=== PATIENT | male | born 1940 | race Caucasian/White ===

== ENCOUNTER → 2018-07-09 15:33 | Outpatient (CLI) | payer MEDICARE, SELFPAY ==
--- NOTE | 2018-07-09 15:44 | XR_ITS ---
XR chest 2V HISTORY: ITS.REASON: COUGH,WHEEZING ORDERING PHYSICIAN: Higinio Limon PATIENT AGE: 77 years COMPARISON: 12/29/2016 FINDINGS: The cardiomediastinal silhouette and pulmonary vascularity are within normal limits. There are mild atelectatic changes at left lung base. There is some increased density in the right infrahilar region with bronchial thickening suspicious for an area of patchy infiltrate.. There is increased density in the retrocardiac region on the left consistent with hiatal hernia.. No acute bony abnormalities. IMPRESSION: 1. Patchy infiltrate in the right lung base medially 2. Atelectasis/fibrosis in the left lung base
== END ==
PROVIDERS: PCP Internal Medicine; Visit Provider Internal Medicine
DX: R05 Cough (principal); R06.2 Wheezing
CPT/HCPCS: 71046

== ENCOUNTER → 2018-08-20 10:27 | Outpatient (CLI) | payer MEDICARE, SELFPAY ==
--- NOTE | 2018-08-20 10:33 | XR_ITS ---
XR chest 2V HISTORY: Follow-up pneumonia. COMPARISON is made to 07/09/2018 ITS.REASON: S/P PNEUMONIA ORDERING PHYSICIAN: Higinio Limon PATIENT AGE: 77 years FINDINGS: The cardiomediastinal silhouette and pulmonary vascularity are within normal limits. There is increased density in the retrocardiac region to the left of the spine suggesting hiatal hernia. This may be confirmed with CT. The patchy density in the right lung base has shown some improvement. There does remain increased density in the right lung base medially which may be due to vascular overlap. The remaining lungs are clear. IMPRESSION: Improved right lower lobe infiltrate. There is some residual density in the right lung base medially probably due to vascular overlap and may be confirmed with follow-up Hiatal hernia.
== END ==
PROVIDERS: PCP Internal Medicine; Visit Provider Internal Medicine
DX: J18.9 Pneumonia, unspecified organism (principal)
CPT/HCPCS: 71046

== ENCOUNTER 2019-03-11 11:00 | Outpatient (RCR) | payer MEDICARE, SELFPAY | END 2019-03-11 11:05 | disposition home or self-care (01) | LOC: PT 11:00 | PROVIDERS: Visit Provider Orthopaedic Surgery | DX: M71.552 Other bursitis, not elsewhere classified, left hip (principal) | CPT/HCPCS: 97033; 97110; 97112; 97163 ==

== ENCOUNTER → 2019-11-01 10:35 | Outpatient (CLI) | payer MEDICARE, SELFPAY ==
[2019-11-01 12:06] LABS: Hemoglobin A1C 7.9 % (0.0-7.0)
[2019-11-01 13:22] LABS: Alanine Aminotransferase 24 U/L (12-78); Albumin Level 3.1 gm/dL (3.4-5.0); Albumin/Globulin Ratio 0.9 (1.1-1.8); Alkaline Phosphatase 68 U/L (46-116); Anion Gap 13.8 mEq/L (5-15); Aspartate Amino Transferase 11 U/L (15-37); Bilirubin,Total 0.7 mg/dL (0.2-1.0); Blood Urea Nitrogen 12 mg/dL (7-18); Calcium 8.9 mg/dL (8.5-10.1); Carbon Dioxide 27 mmol/L (21.0-32.0); Chloride 105 mmol/L (98-107); Chol/HDL Ratio 2.9 (1-3.5); Cholesterol 123 mg/dL (140-200); Creatinine,Serum 1.12 mg/dL (0.70-1.30); Estimated Glomerular Filt Rate 63 ml/min (>60); GFR (African American) 77 ML/MIN (>60); Globulin 3.3 gm/dl (1.3-3.2); Glucose 146 mg/dL (74-106); HDL Cholesterol 43 mg/dL (27-67); LDL Cholesterol 66 mg/dL (0-130); Potassium 4.8 mmoL/L (3.5-5.1); Sodium 141 mmol/L (136-145); Total Protein,Serum 6.4 gm/dL (6.4-8.2); Triglycerides 70 mg/dL (30-200); VLDL Cholesterol 14 mg/dL (0-40)
== END ==
PROVIDERS: Visit Provider Internal Medicine
DX: I10 Essential (primary) hypertension (principal); E78.5 Hyperlipidemia, unspecified; E11.9 Type 2 diabetes mellitus without complications
CPT/HCPCS: 36415; 80053; 80061; 83036

== ENCOUNTER 2021-03-28 18:58 | Observation (INO) | payer MEDICARE, SELFPAY ==
--- NOTE | 2021-03-28 19:08 | CT_ITS ---
PROCEDURE INFORMATION: Exam: CT Abdomen And Pelvis With Contrast Exam date and time: 03/28/21 07:08 PM Age: 80 years old Clinical indication: Nausea and vomiting; Abdominal pain; Generalized; Patient HX: Abdominal and back pain with nausea since this morning. TECHNIQUE: Imaging protocol: Computed tomography of the abdomen and pelvis with contrast. Radiation optimization: All CT scans at this facility use at least one of these dose optimization techniques: automated exposure control; mA and/or kV adjustment per patient size (includes targeted exams where dose is matched to clinical indication); or iterative reconstruction. Contrast material: ISOVUE; Contrast volume: 75 ml; Contrast route: IV; COMPARISON: No relevant prior studies available. FINDINGS: Tubes, catheters and devices: None noted. Lungs: Lung bases appear clear. Heart: Moderate coronary calcifications. No cardiomegaly. No significant pericardial effusion. Liver: Right lobe subcapsular hematoma versus abscess. No mass. Gallbladder and bile ducts: Hydropic gallbladder. Pericholecystic inflammation. Direct extension from the gallbladder into a complex subhepatic fluid collection, gangrenous gallbladder with perforation versus hematoma. No ductal dilation. Pancreas: Normal. No ductal dilation. Spleen: Normal. No splenomegaly. Adrenal glands: Normal. No mass. Kidneys and ureters: Normal. No hydronephrosis. Stomach and bowel: Colonic diverticulosis without diverticulitis. No obstruction. No mucosal thickening. Appendix: No evidence of appendicitis. Intraperitoneal space: Unremarkable. No free air. No significant fluid collection. Retroperitoneal space: No significant retroperitoneal inflammatory changes are noted. Vasculature: Unremarkable. No abdominal aortic aneurysm. Lymph nodes: Unremarkable. No enlarged lymph nodes. Urinary bladder: Unremarkable as visualized. Reproductive: Unremarkable as visualized. Bones/joints: Bilateral total hip arthroplasty. No acute fracture. Soft tissues: Unremarkable. IMPRESSION: Abnormal appearing gallbladder, distended with high dense bile. Pericholecystic inflammation, and direct extension into a large right subhepatic fluid collection which is heterogeneous. Suspect subhepatic abscess versus infected hematoma.
[2021-03-28 19:17] VITALS: BP 138/99; PULSE 99; RESP 16; TEMP 36.6; O2SAT 94; BMI 30.8
[2021-03-28 19:24] LABS: Basophils % 0.1 % (0.1-2.0); Eosinophils % 0.1 % (0.1-12.0); Hematocrit 41.6 % (42.0-52.0); Hemoglobin 13.8 g/dL (14.1-18.0); Lymphocytes # 0.7 K/mm3 (0.7-4.5); Lymphocytes % 3.2 % (10-50); Mean Corpuscular HGB Conc 33.1 g/dL (31.8-35.4); Mean Corpuscular Hemoglobin 29.1 pg (27.0-31.2); Mean Corpuscular Volume 87.8 fl (80-94); Mean Platelet Volume 8.5 fl (7.4-10.4); Monocytes # 1.1 K/mm3 (0.1-1.0); Monocytes % 5.5 % (1.7-9.3); Neutrophils # 18.5 K/mm3 (1.8-7.8); Neutrophils % 91.1 % (37.0-80.0); Platelet Count 291 K/mm3 (142-424); Red Blood Count 4.73 M/mm3 (4.60-6.20); Red Cell Distribution Width 14.2 % (11.5-17.5); White Blood Count 20.3 K/mm3 (4.8-10.8)
[2021-03-28 19:26] LABS: Chloride 99 mmol/L (98-107)
[2021-03-28 19:27] LABS: MANUAL DIFFERENTIAL MANUAL DIFFERENTIAL (MANUAL DIFF); Potassium 4.4 mmoL/L (3.5-5.1); Sodium 137 mmol/L (136-145)
[2021-03-28 19:29] LABS: Alanine Aminotransferase 60 U/L (12-78); Alkaline Phosphatase 106 U/L (38-126); Anion Gap 19.4 mEq/L (5-15); Aspartate Amino Transferase 64 U/L (17-59); Bilirubin,Total 2.7 mg/dl (0.2-1.3); Blood Urea Nitrogen 13 mg/dl (9-20); Carbon Dioxide 23 mmol/L (22.0-30.0); Estimated Glomerular Filt Rate 45 ml/min (>60); GFR (African American) 54 ML/MIN (>60)
[2021-03-28 19:30] LABS: Albumin Level 5.1 g/dl (3.5-5.0); Albumin/Globulin Ratio 1.4 (1.1-1.8); Calcium 9.5 mg/dl (8.4-10.2); Globulin 3.6 g/dL (1.3-3.2); Glucose 299 mg/dl (74-100); Lipase 117 U/L (23-300); Magnesium 2.2 mg/dl (1.6-2.3); Total Protein,Serum 8.7 g/dl (6.3-8.2)
--- NOTE | 2021-03-28 19:30 | HMH.EDGENADL ---
ED Disposition Condition on Discharge: Good - Critical Care Critical Care Time: No <Lucho Pacheco - Last Filed: 03/28/21 19:58> <Raffaele Phillips - Last Filed: 03/28/21 22:14> Clinical Impression: Weakness, Perforated gallbladder, Severe sepsis with acute organ dysfunction Disposition: Admitted As Inpatient Attestation: On 03/28/21, the high probability of a clinically significant, sudden or life threatening deterioration of the following system(s) required my full and direct attention, intervention and personal management. The time I documented below is in addition to time spent performing reported procedures but includes the following listed in this critical care notation. Medical Decision Making - Medical Records Medical records reviewed: Yes: I reviewed the patient's medical records. - [place] Inquiry Pt receiving controlled substance: No - Lab Data Result diagrams: 03/28/21 19:14 03/28/21 19:14 <Lucho Pacheco - Last Filed: 03/28/21 19:58> - Lab Data Lab results reviewed: Yes: I reviewed the patient's lab results. Result diagrams: 03/28/21 19:14 03/28/21 19:14 - Radiology Data #1 Image(s): Chest Image Reviewed: Yes I reviewed the patient's radiology image Preliminary Findings: Normal/NAD - CT Data CT Scan: Abdomen, Pelvis Time Received: 22:[address] Reviewed: Yes: I have viewed the radiologist's interpretation Preliminary Findings: Abnormal (see report ) - ECG Data Tracing #1 Normal Sinus Rhythm: Yes Ischemic changes: non-specific ST-T wave changes - Physician Consults Physician Consulted: audi Reason -: Pt condition Additional Consult: kaitlin Reason -: Admission <Raffaele Phillips - Last Filed: 03/28/21 22:14> Vital Signs: 03/28/21 19:17 Temperature 97.8 F Temperature Source Oral Pulse Rate [Right] 99 H Respiratory Rate 16 Blood Pressure [Right Arm] 138/99 H Blood Pressure Mean [Right Arm] 112 Blood Pressure Source [Right Arm] Automatic Cuff Blood Pressure Position [Right Arm] Supine 02 Sat by Pulse Oximetry 94 L Oxygen Delivery Method Room Air - Lab Data Lab Results 03/28/21 19:14: WBC 20.3 H*, RBC 4.73, Hgb 13.8 L, Hct 41.6 L, MCV 87.8, MCH 29.1, MCHC 33.1, RDW 14.2, Plt Count 291, MPV 8.5, Neut % (Auto) 91.1 H, Lymph % (Auto) 3.2 L, [place] % (Auto) 5.5, Eos % (Auto) 0.1, Baso % (Auto) 0.1, Neut # (Auto) 18.5 H, Lymph # (Auto) 0.7, [place] # (Auto) 1.1 H, Eos # (Auto) 0.0, Baso # (Auto) 0.0, Total Counted 100, Neutrophils % (Manual) 90 H, Lymphocytes % (Manual) 4 L, Monocytes % (Manual) 6, Platelet Estimate Normal, RBC Morphology Normal 03/28/21 19:14: Sodium 137, Potassium 4.4, Chloride 99, Carbon Dioxide 23, Anion Gap 19.4 H, BUN 13, Creatinine 1.50 H, Estimated GFR 45 L, Est GFR ( Amer) 54 L, Glucose 299 H, Calcium 9.5, Total Bilirubin 2.7 H, AST 64 H, ALT 60, Alkaline Phosphatase 106, Total Protein 8.7 H, Albumin 5.1 H, Globulin 3.6 H, Albumin/Globulin Ratio 1.4 03/28/21 19:14: Magnesium 2.2, Lipase 117 03/28/21 19:15: ESR 32 H 03/28/21 19:15: C-Reactive Protein 62.3 H, Procalcitonin 0.379 03/28/21 21:00: Lactate 2.3 H 03/28/21 21:20: Urine Color Yellow, Urine Appearance Clear, Urine pH 7.0, Ur Specific [place] 1.010, Urine Protein 2+, Urine Glucose (UA) 3+, Urine Ketones Negative, Urine Blood 2+, Urine Nitrate Negative, Urine Bilirubin Negative, Urine Urobilinogen 1.0, Ur Leukocyte Esterase Negative, Urine RBC 3-5, Urine WBC None, Ur Squamous Epith Cells 3-5, Urine Bacteria Trace Orders (Tests/Meds): ED MEDICATIONS Generic Name Dose Route Start Last Admin Trade Name Freq PRN Reason Stop Dose Admin Sodium Chloride 1,000 mls @ 999 mls/hr 03/28/21 20:00 03/28/21 20:45 Sod Chlor 0.9% 1000ml Bag IV 03/28/21 21:00 999 mls/hr .Q1H1M PADILLA Administration Piperacillin Sod/Tazobactam 50 mls @ 100 mls/hr 03/28/21 22:00 03/28/21 21:56 Sod 3.375 gm/ Sodium Chloride IV 04/11/21 21:59 100 mls/hr Q6H PADILLA Administration Protocol Di
[2021-03-28 19:40] LABS: Lymphocytes % 4 % (10-50); Monocytes % 6 % (2-9); Neutrophils % 90 % (42-76); Platelet Estimate Normal; RBC Morphology Normal; Total Cells Counted 100
--- NOTE | 2021-03-28 20:37 | PC.NURSE ---
in the room talking to patient
--- NOTE | 2021-03-28 20:46 | XR_ITS ---
PROCEDURE INFORMATION: Exam: XR Chest Exam date and time: 03/28/21 08:46 PM Age: 80 years old Clinical indication: Shortness of breath; Patient HX: SOB TECHNIQUE: Imaging protocol: XR of the chest. Views: 1 view. COMPARISON: CR CXR2V XR chest 2V 08/20/18 10:35 AM FINDINGS: Lungs: Low volume chest. No consolidation. Pleural spaces: Unremarkable. No pleural effusion. No pneumothorax. Heart/Mediastinum: Hiatal hernia. No cardiomegaly. Bones/joints: Unremarkable. IMPRESSION: 1. Hiatal hernia. 2. No acute findings.
--- NOTE | 2021-03-28 20:49 | ECG_ITS ---
APPROVED REPORT Exam: Resting ECG HR:82 bpm ECG Measurements Heart Rate 82 AXES IL 152 P 19 QRSd 74 QRS -10 QT 442 T -6 QTc 516 Conclusion Sinus rhythm with marked sinus arrhythmia with occasional premature ventricular complexes and fusion complexes Moderate voltage criteria for LVH, may be normal variant Nonspecific T wave abnormality Prolonged QT Abnormal ECG Electronically signed by : Faustino Lee, 03/30/2021 10:53:51
[2021-03-28 21:00] VITALS: BP 169/80; PULSE 82; O2SAT 92
[2021-03-28 21:04] LABS: C-Reactive Protein 62.3 mg/L (0-4)
[2021-03-28 21:17] LABS: Erythrocyte Sedimentation Rate 32 mm/hr (0-20); Procalcitonin 0.379 ng/mL (0.0-2.0)
[2021-03-28 21:27] LABS: Lactic Acid 2.3 mmol/L (0.7-2.1)
[2021-03-28 21:27] LABS: Microscopic, Urine URINE MICROSCOPIC (MICROSCOPIC)
[2021-03-28 21:30] VITALS: BP 157/89
--- NOTE | 2021-03-28 21:30 | PC.NURSE ---
gps navigation installer surgeon paged for Dr. Phillips
[2021-03-28 21:31] LABS: Appearance,Urine CLEAR (Clear); Bilirubin,Urine Negative (Negative); Blood, Urine 2+ (Negative); Color,Urine YELLOW (Yellow); Glucose,Urine (UA) 3+ (Negative); Ketones,Urine Negative (Negative); Leukocyte Esterase,Urine Negative (Negative); Nitrate,Urine Negative (Negative); Protein,Urine 2+ (Negative)
--- NOTE | 2021-03-28 21:33 | PC.NURSE ---
Dr. Phillips on phone with all call surgeon
--- NOTE | 2021-03-28 21:41 | PC.NURSE ---
Dr. Pang paged for Dr. Phillips
--- NOTE | 2021-03-28 21:42 | PC.NURSE ---
Dr. Phillips on phone with Dr. Preciaod
[2021-03-28 21:43] LABS: Bacteria,Urine Trace /lpf
[2021-03-28 22:00] VITALS: BP 165/82
[2021-03-28 23:30] VITALS: BP 159/81; PULSE 79; O2SAT 94
[2021-03-29] VITALS (28 sets, daily range): BP systolic 140–190; BP diastolic 62–97; PULSE 74–111; RESP 14–20; TEMP 36.6–43; O2SAT 91–98; BMI 29.0
--- NOTE | 2021-03-29 00:07 | PC.NURSE ---
Report called to ANDREA Gibson at this time.
--- NOTE | 2021-03-29 00:26 | PC.NURSE ---
Addendum entered by Soni Bucio CNA 03/29/21 01:47: CORRECTION. TIME OF ARRIVAL TO FLOOR WAS 0025 Original Note: PT ARRIVED TO FLOOR VIA STRETCHER FROM ED W/STAFF AT 1225
[2021-03-29 01:09] LABS: Reflex Lactic Add Lactic Reflex
[2021-03-29 01:41] LABS: Lactic Acid Follow Up (RFLX 1) 1.6 mmol/L (0.7-2.1)
[2021-03-29 05:54] LABS: POC Glucose,Bedside 152 (70-110)
--- NOTE | 2021-03-29 06:28 | PC.NURSE ---
No acute changes noted since arrival to floor. Pt has not c/o any discomfort. has slept at intervals. VSS. Pt remains on RA. BS active at this time. remains at bedside. Pt and are poor historians on pt's medication. states she will go downstairs this morning and get medications out of car for pharmacy review. No other concerns at this time. Pt is NPO and receiving bath at this time. Will continue to monitor.
--- NOTE | 2021-03-29 06:51 | HMH.GSCON ---
*Admission Date: 03/28/21 *Reason for consult:: Cholecystitis *History of present illness: This is an 80-year-old gentleman who presented to the emergency department yesterday evening with increasing discomfort/nausea. Evaluation in the emergency department included a CT scan that showed changes consistent with severe cholecystitis. Please see HPI from emergency department evaluation forwarded below. Forwarded from emergency department evaluation: General Adult HPI - History of Present Illness Onset (ago): day(s) (1) Location: back, abdomen Radiation: non-radiation Severity: mild Quality: dull Consistency: now resolved <Lucho Pacheco - Last Filed: 03/28/21 19:58> - General Source of Information: Patient, Spouse, Medical Record <Raffaele Phillips - Last Filed: 03/28/21 22:14> - General Stated complaint: abd pain,nausea, back pain Time Seen by Provider: 03/28/21 19:10 - History of Present Illness HPI narrative: Presents with generalized weakness. He says yesterday he did have onset of lower back pain in the mid back associated with abdominal pain nonlocalized. He did have one episode of vomiting. No diarrhea no fever no chills. No dysuria. Does have history of urinary tract infection. No headache or neck stiffness. Per he has not been eating or drinking very well. (Lucho Pacheco) Review of Systems - Constitutional Reports anorexia - Eyes Denies change in vision - ENT Denies difficulty swallowing - *Cardiovascular Denies chest pain - *Respiratory Denies cough - *Gastrointestinal Reports abdominal pain, Reports nausea - *Genitourinary Denies blood in urine - *Musculoskeletal Denies deformity - Integumentary/Breasts Denies new lesions - *Neurologic Denies dizziness, Denies headache(s) - Psychiatric Denies anxiety - Endocrine Denies cold intolerance - Hematologic/Lymphatic Denies easy bleeding - Allergic/Immunologic Denies wheezing [facility] History Medical History: Reports:: Diabetes Mellitus Type 2, Hyperlipidemia, Hypertension Denies:: Cancer, MRSA *Have you ever received a pneumonia vaccine?: No *Have you received a flu vaccine this season?: No Laterality Cases: Bilateral: Total Hip Replacement Other Surgeries: Yes: EGD Amputation: No - *Social History Smoking Status: Never smoker Alcohol Intake: never *Occupational Status:: retired *Travel in the last 8 weeks: None Family Hx:: Asthma, Diabetes, Hyperlipidemia, Hypertension, Stroke Meds Home Medications Medication Instructions Recorded Confirmed Type Aspirin [Aspirin 81mg EC Tab] 81 mg PO DAILY 03/28/21 03/28/21 History Atorvastatin Calcium [Lipitor 10mg 10 mg PO HS 03/28/21 03/28/21 History Tab] Metformin HCl [Glucophage 500mg 500 mg PO BID 03/28/21 03/29/21 History Tablet] Multivitamin [Multivitamins] 1 each PO DAILY 03/28/21 03/28/21 History Omeprazole [Omeprazole 20mg 20 mg PO DAILY 03/28/21 03/28/21 History Capsule] dilTIAZem HCL [Cartia Xt] 240 mg PO DAILY 03/28/21 03/28/21 History Allergies Allergy/AdvReac Type Severity Reaction Status Date / Time No Known Drug Allergies Allergy Unknown Verified 03/28/21 21:54 [NO KNOWN DRUG ALLERGIES] Exam Vital signs and Labs for Last 24 Hours: Temp Pulse Resp BP Pulse Ox 98.0 F 80 16 159/89 H 94 L 03/29/21 03:38 03/29/21 03:38 03/29/21 03:38 03/29/21 03:38 03/29/21 03:38 Laboratory Results - last 24 hr 03/28/21 19:14: WBC 20.3 H*, RBC 4.73, Hgb 13.8 L, Hct 41.6 L, MCV 87.8, MCH 29.1, MCHC 33.1, RDW 14.2, Plt Count 291, MPV 8.5, Neut % (Auto) 91.1 H, Lymph % (Auto) 3.2 L, [place] % (Auto) 5.5, Eos % (Auto) 0.1, Baso % (Auto) 0.1, Neut # (Auto) 18.5 H, Lymph # (Auto) 0.7, [place] # (Auto) 1.1 H, Eos # (Auto) 0.0, Baso # (Auto) 0.0, Total Counted 100, Neutrophils % (Manual) 90 H, Lymphocytes % (Manual) 4 L, Monocytes % (Manual) 6, Platelet Estimate Normal, RBC Morphology Normal 03/28/21 19:14: Sodium 137, Potassium 4
--- NOTE | 2021-03-29 07:00 | US_ITS ---
PROCEDURE: US GALLBLADDER CLINICAL INDICATION: abn ct Abdominal pain COMPARISON: CT CT ABDOMEN PELVIS W CON from 03/28/2021 FINDINGS: Pancreas: Pancreas is not well delineated due to overlying bowel gas. Liver: There is an irregular 10 by collection along the right hepatic lobe inferiorly which is heterogeneous in nature corresponding to the CT abnormality.. There is appropriate direction of blood flow within a non dilated portal vein. Right kidney: No hydronephrosis. There is a 2 cm cyst along the lower pole of the right kidney Gallbladder: Gallbladder is filled with sludge. Stones are also present. Gallbladder is somewhat distended at 8.4 cm. Common bile duct is normal at 3 mm. The gallbladder wall is not well demonstrated. No obvious perihepatic fluid. IMPRESSION: 1. Cholelithiasis with sludge filled gallbladder. Gallbladder is wall it is not well demonstrated due to the shadowing stones. 2. Complex collection along the lower aspect of the right hepatic lobe which could represent a hematoma or an abscess. Dictated by: You Montoya MD 03/29/2021 09:40 You Montoya MD in [place] 03/29/2021 09:40
[2021-03-29 07:08] LABS: Basophils % 0.1 % (0.1-2.0); Eosinophils % 0.1 % (0.1-12.0); Lymphocytes # 1.4 K/mm3 (0.7-4.5); Lymphocytes % 8.7 % (10-50); Mean Corpuscular Hemoglobin 28.9 pg (27.0-31.2); Mean Corpuscular Volume 87.5 fl (80-94); Mean Platelet Volume 8.1 fl (7.4-10.4); Monocytes # 1.3 K/mm3 (0.1-1.0); Monocytes % 7.9 % (1.7-9.3); Neutrophils # 13.4 K/mm3 (1.8-7.8); Neutrophils % 83.1 % (37.0-80.0); Platelet Count 205 K/mm3 (142-424); Red Blood Count 4.11 M/mm3 (4.60-6.20); Red Cell Distribution Width 14.4 % (11.5-17.5); White Blood Count 16.1 K/mm3 (4.8-10.8)
[2021-03-29 07:22] LABS: MANUAL DIFFERENTIAL MANUAL DIFFERENTIAL (MANUAL DIFF)
[2021-03-29 07:29] LABS: Chloride 104 mmol/L (98-107); Sodium 138 mmol/L (136-145)
[2021-03-29 07:30] LABS: Potassium 4.1 mmoL/L (3.5-5.1)
[2021-03-29 07:32] LABS: Alanine Aminotransferase 125 U/L (12-78); Albumin/Globulin Ratio 1.3 (1.1-1.8); Alkaline Phosphatase 85 U/L (38-126); Anion Gap 11.1 mEq/L (5-15); Aspartate Amino Transferase 153 U/L (17-59); Bilirubin,Total 2.4 mg/dl (0.2-1.3); Blood Urea Nitrogen 17 mg/dl (9-20); Carbon Dioxide 27 mmol/L (22.0-30.0); Creatinine Clearance Estimated 58 mL/min (50-200); Estimated Glomerular Filt Rate 53 ml/min (>60); GFR (African American) 64 ML/MIN (>60)
[2021-03-29 07:33] LABS: Calcium 8.7 mg/dl (8.4-10.2); Glucose 156 mg/dl (74-100)
--- NOTE | 2021-03-29 07:34 | P.CONPHA_ITS ---
[facility] Pharmacy VTE Monitoring - Patient Demographics Admission date: 03/29/21 Report Date: 03/29/21 Time: 07:34 Allergies/Adverse Reactions: Patient Allergies No Known Drug Allergies [NO KNOWN DRUG ALLERGIES] Allergy (Unknown, Verified 03/28/21 21:54) Height: 1.78 m Weight: 92.079 kg Patient Problems: Current Active Problems Weakness (Acute) Perforated gallbladder (Acute) Severe sepsis with acute organ dysfunction (Acute) Gangrenous cholecystitis (Acute) - VTE Risk Labs: VTE Related Lab Results Hgb 13.8 g/dL (14.1-18.0) L 03/28/21 19:14 Hct 36.0 % (42.0-52.0) L 03/29/21 06:10 Plt Count 205 K/mm3 (142-424) D 03/29/21 06:10 BUN 13 mg/dl (9-20) 03/28/21 19:14 Creatinine 1.50 mg/dl (0.66-1.25) H 03/28/21 19:14 Was VTE Risk Assessment Performed: Yes VTE Score: 2 VTE Risk Level: Very Low Risk Clinical Trial Participant: No - Prophylaxis VTE Prophylaxis Ordered?: Yes Types of VTE Prophylaxis: TEDS Knee High Location of Applied Device: Bilateral Lower Extremeties
--- NOTE | 2021-03-29 09:02 | HMH.HP ---
*Admission Date: 03/29/21 <Annia Penaloza 03/29/21 09:10> *Chief complaint: abdominal pain, back pain <Annia Penaloza 03/29/21 09:10> *History of present illness: Mr. Lawson is an 80-year-old male with a history of hypertension, hyperlipidemia, asthma, and prediabetes who began feeling poorly at the beginning of this week. He has had epigastric and right upper quadrant abdominal pain that has radiated into his back. He has been nauseated and extremely weak. Yesterday he began vomiting and was so weak he could not get up. He was transported to the emergency room and evaluated. A CT scan showed changes consistent with severe cholecystitis with a possible subhepatic abscess versus an infected hematoma. He was admitted and surgery was consulted. He was started on IV antibiotics and Dr. Singer saw the patient. He plans cholecystectomy at 11 AM today. <Annia Penaloza 03/29/21 09:10> [facility] History I have reviewed the patient's past medical history: Yes <Annia Penaloza 03/29/21 09:10> Medical History: Reports:: Asthma, Diabetes Mellitus Type 2, Hyperlipidemia, Hypertension Denies:: Cancer, MRSA <Annia Penaloza 03/29/21 09:10> *Have you ever received a pneumonia vaccine?: No <Annia Penaloza 03/29/21 09:10> *Have you received a flu vaccine this season?: No <Annia Penaloza 03/29/21 09:10> Laterality Cases: Bilateral: Total Hip Replacement <Annia Penaloza 03/29/21 09:10> Other Surgeries: Yes: EGD <Annia Penaloza 03/29/21 09:10> Amputation: No <Annia Penaloza 03/29/21 09:10> - *Social History Smoking Status: Never smoker <Annia Penaloza 03/29/21 09:10> Alcohol Intake: never <Annia Penaloza 03/29/21 09:10> *Occupational Status:: retired <Annia Penaloza 03/29/21 09:10> *Travel in the last 8 weeks: None <Annia Penaloza 03/29/21 09:10> Family Hx:: Asthma, Diabetes, Hyperlipidemia, Hypertension, Stroke <CaAnnia 03/29/21 09:10> Review of Systems - Constitutional Reports weakness, Denies fever(s) <Laurent Penalozaa 03/29/21 09:10> - Eyes Denies blurry vision, Denies double vision <[facility] 03/29/21 09:10> - ENT Denies nasal congestion, Denies sore throat <[facility]rent [facility] 03/29/21 09:10> - *Cardiovascular Denies chest pain, [facility] shortness of breath [facility] 03/[facility] 09:10> - *Respiratory Denies cough, Denies shortness of breath <[facility] 03/29/21 09:10> - *Gastrointestinal Reports abdominal pain, Reports nausea, Reports vomiting, Denies loose stools <[facility] 03/29/21 09:10> - *Genitourinary Denies difficulty urinating, Denies painful urination <[facility] 03/29/21 09:10> - *Musculoskeletal Denies joint pain <CaAnnia 03/29/21 09:10> - *Neurologic Reports weakness, Denies dizziness, Denies headache(s), Denies dizziness <Laurent Penalozaa 03/29/21 09:10> Meds Home Medications Medication Instructions Recorded Confirmed Type Aspirin [Aspirin 81mg EC Tab] 81 mg PO DAILY 03/28/21 03/28/21 History Atorvastatin Calcium [Lipitor 10mg 10 mg PO HS 03/28/21 03/28/21 History Tab] Metformin HCl [Glucophage 500mg 500 mg PO BID 03/28/21 03/29/21 History Tablet] Multivitamin [Multivitamins] 1 each PO DAILY 03/28/21 03/28/21 History Omeprazole [Omeprazole 20mg 20 mg PO DAILY 03/28/21 03/28/21 History Capsule] dilTIAZem HCL [Cartia Xt] 240 mg PO DAILY 03/28/21 03/28/21 History Donepezil HCl [Aricept 5mg 5 mg PO HS 03/29/21 03/29/21 History Tablet] <Tj Pang - 03/29/21 18:38> Allergies Allergy/AdvReac Type Severity Reaction Status Date / Time No Known Drug Allergies Allergy Unknown Verified 03/28/21 21:54 [NO KNOWN DRUG ALLERGIES] <Tj Pang - 03/29/21 18:38> Exam Vital signs and Labs for Last 24 Hours: Temp Pulse Resp BP Pulse Ox 99.3 F 98 H 16 157/88 H 94 L 03/29/21 18:25 03/29/21 18:25 03/29/21 18:28 03/29/21 18:25 03/29/21 18:25 Laboratory Resu
--- NOTE | 2021-03-29 09:20 | HMH.PHAINT ---
verified home medication list using list from Dr. Limon' office
[2021-03-29 09:46] LABS: Lymphocytes % 8 % (10-50); Monocytes % 4 % (2-9); Neutrophils % 88 % (42-76); Platelet Estimate Normal; RBC Morphology Normal; Total Cells Counted 100
[2021-03-29 09:47] LABS: Hemoglobin 11.9 g/dL (14.1-18.0)
[2021-03-29 12:15] LABS: POC Glucose,Bedside 174 (70-110)
--- NOTE | 2021-03-29 12:34 | PC.NURSE ---
Down to OR @ [id number]
--- NOTE | 2021-03-29 13:32 | HMH.ANESCL ---
[facility] Anesthesia Checklist - Patient Identification Patient Identification: Arm Band - Structural Data Admitted From: Inpatient Planned Operative Procedure/s: Lap. cholecystectomy Consent for Planned Operative Procedure(s) Verified: Yes - NPO Status Verified Time NPO: 00:00 - Airway Assessment C-Spine Mobility Assessed: Yes TMJ Mobility Assessed: Yes Dentition: Poor Dentition - Neurological Assessment Level of Consciousness: Awake Hx Seizures: No Numbness or tingling in extremities: No - Anesthesia Plan Anesthesia Risk discussed: Yes Anesthesia Plan: Verified ASA Class: III Anesthesia Type: General [facility] History I have reviewed the patient's past medical history: Yes Medical History: Reports:: Asthma, Diabetes Mellitus Type 2, Hyperlipidemia, Hypertension Denies:: Cancer, MRSA *Have you ever received a pneumonia vaccine?: No *Have you received a flu vaccine this season?: No Anesthesia experience/problems:: None Laterality Cases: Bilateral: Total Hip Replacement Other Surgeries: Yes: EGD Amputation: No - *Social History Smoking Status: Never smoker Alcohol Intake: never Substance Use Type: denies use *Occupational Status:: retired *Travel in the last 8 weeks: None Family Hx:: Asthma, Diabetes, Hyperlipidemia, Hypertension, Stroke
--- NOTE | 2021-03-29 15:21 | HMH.ANESI ---
[facility] [place] Anesthesia Record Part I Intake, IV Amount: 1,500 Estimated blood loss (mL): 150 Urine output (mL): 0 Blood Pressure: 180/84 SaO2: 98 Pulse Rate: 105 Respiratory Rate: 18 Temperature: 97.8 F Patient is:: Awake, Stable Stable to PACU at:: 15:15
--- NOTE | 2021-03-29 15:52 | HMH.OPNOTE ---
Date of procedure: 03/29/21 Pre-op Diagnosis:: Acute gangrenous cholecystitis Post-op Diagnosis:: Acute gangrenous cholecystitis Subcapsular hepatic hematoma Procedure performed:: Laparoscopic cholecystectomy Surgeon:: Samir Singer MD Anesthesia: GETPaulie Estimated blood loss (mL): 50 Operative findings:: Severe gangrenous calculus cholecystitis Right inferior/posterior hepatic subcapsular hematoma. The hematoma appeared to emanate from margin of gallbladder fossa and projected to the right lateral margin of the liver Rent in capsule of hematoma secondary to maneuvering gallbladder No definitive sign of ongoing blood loss with regard to hematoma Operative note:: After informed consent was obtained, the patient was taken to the operating room and placed in the supine position. General anesthesia was induced and the abdomen was prepped and draped in a sterile fashion. After infiltration with local anesthetic an infraumbilical incision was made. A Veress needle was placed in position. The abdomen was insufflated. A 5 mm optical trocar was placed in position. Under direct visualization, a 12 mm trocar was placed in the subxiphoid position and 2 additional 5 mm trocars were placed in the right upper quadrant. Visual inspection immediately revealed severe inflammation in and around the dome of the gallbladder. The gallbladder was also extremely distended. A large subcapsular hepatic hematoma was also immediately visualized. The hematoma appeared to emanate from the margin of the gallbladder fossa and projected to the right lateral margin of the liver. The hematoma was noted throughout the right inferior/posterior hepatic margin. No sign of active expansion was noted. Harmonic man were utilized to create a small otomy in the dome of the gallbladder. Contents of the gallbladder were evacuated to the degree possible. The gallbladder was elevated up and over the liver margin to the degree possible. Simple maneuvering of the gallbladder created a rent in the hepatic capsule. The hematoma contents were easily visualized. No sign of definitive ongoing hemorrhage was noted. As the gallbladder was elevated a combination of blunt dissection and harmonic man were utilized to free densely adhered omentum. The infundibulum was severely inflamed and enlarged. Tissue around the cystic duct was carefully dissected. 3 clips were placed proximally and the duct was transected with harmonic man. Harmonic man were then utilized to dissect the gallbladder away from the liver margin with careful attention to the control of the cystic artery. The gallbladder was placed in a retrieval bag and removed through the subxiphoid trocar site. The right upper quadrant was thoroughly irrigated. No active bleeding or bile leak was noted. Fascia at the subxiphoid trocar site was reapproximated utilizing 0 Ethibond. The remaining trocars were removed. All wounds were irrigated and skin was closed with 4-0 Monocryl in a subcuticular fashion. Steri-Strips were applied. The patient's anesthetic agents were reversed and extubation was completed prior to transfer to recovery in stable condition. Condition: stable Disposition: PACU Specimens:: Gallbladder Complications:: No immediate
[2021-03-29 16:27] LABS: POC Glucose,Bedside 199 (70-110)
--- NOTE | 2021-03-29 16:50 | PC.NURSE ---
Pt back to floor @ 1610. Remains on room air, sat low-mid 90's. Lungs diminished upon ausculation. HR regular. Abdomen soft, tender w/ palpation - lap site dressings x4 c/d/i. Pt has been resting comfortably since arriving to floor. VSS. Family @ bedside. Bed alarm in place. Call nino w/in reach.
--- NOTE | 2021-03-29 21:30 | PC.NURSE ---
Pt became nauseated and vomited x1. Zofran administered. Bed linens and gown changed. Pt is currently resting in bed. Will continue to monitor.
[2021-03-30] VITALS (7 sets, daily range): BP systolic 136–157; BP diastolic 58–83; PULSE 76–92; RESP 17–20; TEMP 36.5–37.2; O2SAT 91–95; BMI 29.5
--- NOTE | 2021-03-30 00:43 | PC.NURSE ---
Pt ambulated to BR with assist x2. Tolerated well. Pt has not urinated at this time. Will try again later. No complaints stated. Pt drank clear liquid and tolerated it. New IV placed, #20 LFA.
[2021-03-30 06:16] LABS: Basophils % 0.1 % (0.1-2.0); Mean Corpuscular HGB Conc 33.4 g/dL (31.8-35.4); Monocytes # 0.8 K/mm3 (0.1-1.0); White Blood Count 11.4 K/mm3 (4.8-10.8)
[2021-03-30 06:22] LABS: Chloride 106 mmol/L (98-107); Potassium 3.9 mmoL/L (3.5-5.1); Sodium 138 mmol/L (136-145)
[2021-03-30 06:25] LABS: Alanine Aminotransferase 148 U/L (12-78); Albumin Level 3.2 g/dl (3.5-5.0); Albumin/Globulin Ratio 1.2 (1.1-1.8); Alkaline Phosphatase 70 U/L (38-126); Anion Gap 9.9 mEq/L (5-15); Aspartate Amino Transferase 107 U/L (17-59); Bilirubin,Total 1.6 mg/dl (0.2-1.3); Blood Urea Nitrogen 24 mg/dl (9-20); Carbon Dioxide 26 mmol/L (22.0-30.0); Creatinine Clearance Estimated 51 mL/min (50-200); Estimated Glomerular Filt Rate 45 ml/min (>60); GFR (African American) 54 ML/MIN (>60); Globulin 2.6 g/dL (1.3-3.2); Glucose 214 mg/dl (74-100); Total Protein,Serum 5.8 g/dl (6.3-8.2)
[2021-03-30 06:26] LABS: Hematocrit 30.4 % (42.0-52.0); Hemoglobin 10.2 g/dL (14.1-18.0); Lymphocytes # 1.1 K/mm3 (0.7-4.5); Lymphocytes % 9.4 % (10-50); Mean Corpuscular Hemoglobin 29.1 pg (27.0-31.2); Mean Corpuscular Volume 87.1 fl (80-94); Mean Platelet Volume 8.1 fl (7.4-10.4); Monocytes % 6.7 % (1.7-9.3); Neutrophils # 9.5 K/mm3 (1.8-7.8); Neutrophils % 83.7 % (37.0-80.0); Platelet Count 207 K/mm3 (142-424); Red Blood Count 3.49 M/mm3 (4.60-6.20); Red Cell Distribution Width 14.5 % (11.5-17.5)
[2021-03-30 06:36] LABS: POC Glucose,Bedside 185 (70-110)
--- NOTE | 2021-03-30 08:34 | HMH.ACPN2 ---
<Annia Penaloza - Last Filed: 03/30/21 08:34> Internal Medicine - PN: Subj *Date: 03/30/21 *Time: 08:34 Interval history: Patient states he is feeling well this morning. He did have some nausea last night after eating and again some mild nausea this morning. His pain has improved. He was able to rest well last night. Exam Vital signs and Labs for Last 24 Hours: Temp Pulse Resp BP Pulse Ox 98.4 F 83 18 157/74 H 93 L 03/30/21 07:49 03/30/21 07:49 03/30/21 07:49 03/30/21 07:49 03/30/21 07:49 Laboratory Results - last 24 hr 03/29/21 06:10: Hgb 11.9 L D, Total Counted 100, Neutrophils % (Manual) 88 H, Lymphocytes % (Manual) 8 L, Monocytes % (Manual) 4, Platelet Estimate Normal, RBC Morphology Normal 03/29/21 10:58: POC Glucose 174 H 03/29/21 16:17: POC Glucose 199 H 03/30/21 05:18: WBC 11.4 H D, RBC 3.49 L, Hgb 10.2 L D, Hct 30.4 L, MCV 87.1, MCH 29.1, MCHC 33.4, RDW 14.5, Plt Count 207, MPV 8.1, Neut % (Auto) 83.7 H, Lymph % (Auto) 9.4 L, [place] % (Auto) 6.7, Eos % (Auto) 0.0 L, Baso % (Auto) 0.1, Neut # (Auto) 9.5 H, Lymph # (Auto) 1.1, [place] # (Auto) 0.8, Eos # (Auto) 0.0, Baso # (Auto) 0.0 03/30/21 05:18: Sodium 138, Potassium 3.9, Chloride 106, Carbon Dioxide 26, Anion Gap 9.9, BUN 24 H D, Creatinine 1.50 H, Estimated Creat Clear 51, Estimated GFR 45 L, Est GFR ( Amer) 54 L, Glucose 214 H D, Calcium 8.0 L, Total Bilirubin 1.6 H, AST 107 H D, ALT 148 H, Alkaline Phosphatase 70, Total Protein 5.8 L, Albumin 3.2 L D, Globulin 2.6, Albumin/Globulin Ratio 1.2 03/30/21 06:17: POC Glucose 185 H I & O for Last 24 hours: Intake & Output 03/27/21 03/28/21 03/29/21 03/30/21 11:59 11:59 11:59 11:59 Intake Total 1100 / 1100 1920 / 1920 Output Total 100 / 100 200 / 200 Balance 1000 / 1000 1720 / 1720 Weight 203 lb 206 lb 5 oz - Constitutional no acute distress - *Routine Respiratory Exam Present: CTA bilaterally - *Routine Cardiovascular Exam Present: RRR - *Routine Abdominal Exam Present: soft, normoactive bowel sounds, tenderness (Around incision sites, all dressings are clean and dry) - *Routine Extremities Exam Absent: cyanosis, clubbing, edema - *Routine Skin Exam Present: warm. Absent: rash - *Routine Neurological Exam Present: alert, oriented X3 Assessment and Plan (1) Gangrenous cholecystitis Status: Acute Category: Medical Code(s): K81.0 - Acute cholecystitis (2) Hypertension Status: Chronic Category: Medical Code(s): I10 - Essential (primary) hypertension (3) Hyperlipemia Status: Chronic Category: Medical Code(s): E78.5 - Hyperlipidemia, unspecified (4) Asthma Status: Chronic Category: Medical Code(s): J45.909 - Unspecified asthma, uncomplicated (5) Type 2 diabetes mellitus Status: Acute Category: Medical Code(s): E11.9 - Type 2 diabetes mellitus without complications - Assessment and plan all Dx Assessment and Plan for all problems:: Patient doing well postop. Dr. Singer to follow. <Tj Pang - Last Filed: 03/30/21 09:12> Internal Medicine - PN: Subj *Date: 03/30/21 *Time: 09:09 Exam Vital signs and Labs for Last 24 Hours: Temp Pulse Resp BP Pulse Ox 98.4 F 83 18 157/74 H 93 L 03/30/21 07:49 03/30/21 07:49 03/30/21 07:49 03/30/21 07:49 03/30/21 07:49 Laboratory Results - last 24 hr 03/29/21 06:10: Hgb 11.9 L D, Total Counted 100, Neutrophils % (Manual) 88 H, Lymphocytes % (Manual) 8 L, Monocytes % (Manual) 4, Platelet Estimate Normal, RBC Morphology Normal 03/29/21 10:58: POC Glucose 174 H 03/29/21 16:17: POC Glucose 199 H 03/30/21 05:18: WBC 11.4 H D, RBC 3.49 L, Hgb 10.2 L D, Hct 30.4 L, MCV 87.1, MCH 29.1, MCHC 33.4, RDW 14.5, Plt Count 207, MPV 8.1, Neut % (Auto) 83.7 H, Lymph % (Auto) 9.4 L, [place] % (Auto) 6.7, Eos % (Auto) 0.0 L, Baso % (Auto) 0.1, Neut # (Auto) 9.5 H, Lymph # (Auto) 1.1, [place] # (Auto) 0.8, Eos # (Auto) 0.0, Baso # (Auto) 0.0 03/30/21 05:18: Sodium 138, Potassium 3.9,
--- NOTE | 2021-03-30 10:31 | HMH.GSPN ---
Subjective Narrative: Ambulated to bathroom earlier today with minimal difficulty. Overall feels better with regard to pain. Some nausea noted over the past few hours. Progress Note: A&P (1) Gangrenous cholecystitis Status: Acute Assessment and plan: Overall, doing fairly well status post laparoscopic cholecystectomy. Continue IV antibiotics for now (2) Hypertension Status: Chronic (3) Hyperlipemia Status: Chronic (4) Asthma Status: Chronic (5) Type 2 diabetes mellitus Status: Acute (6) Subcapsular hematoma of liver Status: Acute Assessment and plan: The hematoma was immediately visible upon laparoscopic entry of the abdomen and appeared to emanate from the gallbladder fossa. Secondary to lack of recent trauma and the above findings (although rare) it is most likely due to severe inflammatory changes in and around the gallbladder. Overall, there is no sign of ongoing hemorrhage secondary to this hematoma. Assessment and Plan for All Diagnoses:: Very cautious advancement of diet secondary to current nausea. If he continues to improve (from a physiologic and laboratory standpoint) he may be appropriate for discharge as early as tomorrow with close outpatient follow-up. Exam Vital signs and Labs for Last 24 Hours: Temp Pulse Resp BP Pulse Ox 98.4 F 83 18 157/74 H 93 L 03/30/21 07:49 03/30/21 07:49 03/30/21 07:49 03/30/21 07:49 03/30/21 07:49 Laboratory Results - last 24 hr 03/29/21 10:58: POC Glucose 174 H 03/29/21 16:17: POC Glucose 199 H 03/30/21 05:18: WBC 11.4 H D, RBC 3.49 L, Hgb 10.2 L D, Hct 30.4 L, MCV 87.1, MCH 29.1, MCHC 33.4, RDW 14.5, Plt Count 207, MPV 8.1, Neut % (Auto) 83.7 H, Lymph % (Auto) 9.4 L, [place] % (Auto) 6.7, Eos % (Auto) 0.0 L, Baso % (Auto) 0.1, Neut # (Auto) 9.5 H, Lymph # (Auto) 1.1, [place] # (Auto) 0.8, Eos # (Auto) 0.0, Baso # (Auto) 0.0 03/30/21 05:18: Sodium 138, Potassium 3.9, Chloride 106, Carbon Dioxide 26, Anion Gap 9.9, BUN 24 H D, Creatinine 1.50 H, Estimated Creat Clear 51, Estimated GFR 45 L, Est GFR ( Amer) 54 L, Glucose 214 H D, Calcium 8.0 L, Total Bilirubin 1.6 H, AST 107 H D, ALT 148 H, Alkaline Phosphatase 70, Total Protein 5.8 L, Albumin 3.2 L D, Globulin 2.6, Albumin/Globulin Ratio 1.2 03/30/21 06:17: POC Glucose 185 H I & O for Last 24 hours: Intake & Output 03/27/21 03/28/21 03/29/21 03/30/21 11:59 11:59 11:59 11:59 Intake Total 1100 / 1100 1920 / 1920 Output Total 100 / 100 200 / 200 Balance 1000 / 1000 1720 / 1720 Weight 203 lb 206 lb 5 oz - Constitutional no acute distress - *Routine Respiratory Exam Absent: respiratory distress - *Routine Cardiovascular Exam Present: RRR - *Routine Abdominal Exam Present: soft Comments: Dressings intact. No spreading cellulitis.
[2021-03-30 16:40] LABS: POC Glucose,Bedside 167 (70-110)
--- NOTE | 2021-03-30 17:12 | PC.NURSE ---
Pt has been pleasant and cooperative this shift. A&O X4. No complaints of pain. Pt has complained of nausea X1 and Zofran has been given per MAR with favorable results. No vomiting noted. Pt is on room air with sats. >90%. Lungs CTA. No edema noted. Abdominal dressings C/D/I. Pt ambulates with stand-by assistance to/from the bathroom and throughout the room. Pt voids clear, yellow urine without issue. No BM thus far. Pt sat up in the recliner for several hours today. Pt is currently receiving a Full Liquid diet and tolerating well. Appetite is fair and pt eats the majority of every meal. 20 G peripheral IV in the LT AC is patent and infusing NS @ 75 ML/HR. VSS. Call light within reach. Will continue to monitor.
[2021-03-30 17:59] LABS: POC Glucose,Bedside 186 (70-110)
[2021-03-30 17:59] LABS: POC Glucose,Bedside 243 (70-110)
[2021-03-30 20:28] LABS: POC Glucose,Bedside 131 (70-110)
[2021-03-31] VITALS: BP 172/81; PULSE 79; RESP 18; TEMP 36.8; O2SAT 92
[2021-03-31 04:00] VITALS: BP 165/86; PULSE 75; RESP 18; TEMP 36.4; O2SAT 90
--- NOTE | 2021-03-31 04:34 | PC.NURSE ---
Pt has rested well t/o night. Has not c/o any pain or n/v. Pt has ambulated to BR with assist x2 and tolerated fair. Pt noted to start wheezing with exertion. MD notified. Albuterol inhaler ordered. BS. active. Abdominal incisions with DSGs intact. Medications administered per dec. No other concerns. Will continue to monitor.
[2021-03-31 05:46] LABS: POC Glucose,Bedside 166 (70-110)
[2021-03-31 06:08] LABS: Basophils % 0.2 % (0.1-2.0); Eosinophils # 0.1 K/mm3 (0.0-0.4); Eosinophils % 1.1 % (0.1-12.0); Hematocrit 27.9 % (42.0-52.0); Hemoglobin 9.4 g/dL (14.1-18.0); Lymphocytes # 1.2 K/mm3 (0.7-4.5); Lymphocytes % 11.4 % (10-50); Mean Corpuscular HGB Conc 33.8 g/dL (31.8-35.4); Mean Corpuscular Hemoglobin 29.6 pg (27.0-31.2); Mean Corpuscular Volume 87.6 fl (80-94); Mean Platelet Volume 8.5 fl (7.4-10.4); Monocytes # 0.7 K/mm3 (0.1-1.0); Monocytes % 6.2 % (1.7-9.3); Neutrophils # 8.6 K/mm3 (1.8-7.8); Neutrophils % 81.2 % (37.0-80.0); Platelet Count 209 K/mm3 (142-424); Red Blood Count 3.19 M/mm3 (4.60-6.20); Red Cell Distribution Width 14.3 % (11.5-17.5); White Blood Count 10.6 K/mm3 (4.8-10.8)
[2021-03-31 06:09] LABS: Chloride 109 mmol/L (98-107); Potassium 3.5 mmoL/L (3.5-5.1); Sodium 139 mmol/L (136-145)
[2021-03-31 06:11] LABS: Alanine Aminotransferase 83 U/L (12-78); Aspartate Amino Transferase 50 U/L (17-59); Blood Urea Nitrogen 24 mg/dl (9-20); Creatinine Clearance Estimated 59 mL/min (50-200); Estimated Glomerular Filt Rate 53 ml/min (>60); GFR (African American) 64 ML/MIN (>60)
[2021-03-31 06:12] LABS: Albumin Level 3.1 g/dl (3.5-5.0); Albumin/Globulin Ratio 1.1 (1.1-1.8); Alkaline Phosphatase 78 U/L (38-126); Anion Gap 9.5 mEq/L (5-15); Bilirubin,Total 1.6 mg/dl (0.2-1.3); Calcium 7.8 mg/dl (8.4-10.2); Carbon Dioxide 24 mmol/L (22.0-30.0); Globulin 2.8 g/dL (1.3-3.2); Glucose 156 mg/dl (74-100); Total Protein,Serum 5.9 g/dl (6.3-8.2)
[2021-03-31 07:33] VITALS: BP 176/73; PULSE 70; RESP 17; TEMP 36.8; O2SAT 92
[2021-03-31 07:37] VITALS: PULSE 70; RESP 17; O2SAT 92
--- NOTE | 2021-03-31 09:01 | HMH.GSPN ---
Subjective Patient reports: no new complaints, feels better Progress Note: A&P (1) Gangrenous cholecystitis Status: Acute (2) Hypertension Status: Chronic (3) Hyperlipemia Status: Chronic (4) Asthma Status: Chronic (5) Type 2 diabetes mellitus Status: Acute (6) Subcapsular hematoma of liver Status: Acute Exam Vital signs and Labs for Last 24 Hours: Temp Pulse Resp BP Pulse Ox 98.3 F 70 17 176/73 H 92 L 03/31/21 07:33 03/31/21 07:37 03/31/21 07:37 03/31/21 07:33 03/31/21 07:37 Laboratory Results - last 24 hr 03/29/21 21:09: POC Glucose 186 H 03/30/21 12:05: POC Glucose 243 H 03/30/21 16:06: POC Glucose 167 H 03/30/21 20:17: POC Glucose 131 H 03/31/21 05:06: WBC 10.6, RBC 3.19 L, Hgb 9.4 L, Hct 27.9 L, MCV 87.6, MCH 29.6, MCHC 33.8, RDW 14.3, Plt Count 209, MPV 8.5, Neut % (Auto) 81.2 H, Lymph % (Auto) 11.4, [place] % (Auto) 6.2, Eos % (Auto) 1.1, Baso % (Auto) 0.2, Neut # (Auto) 8.6 H, Lymph # (Auto) 1.2, [place] # (Auto) 0.7, Eos # (Auto) 0.1, Baso # (Auto) 0.0 03/31/21 05:06: Sodium 139, Potassium 3.5, Chloride 109 H, Carbon Dioxide 24, Anion Gap 9.5, BUN 24 H, Creatinine 1.30 H, Estimated Creat Clear 59, Estimated GFR 53 L, Est GFR ( Amer) 64, Glucose 156 H D, Calcium 7.8 L, Total Bilirubin 1.6 H, AST 50 D, ALT 83 H D, Alkaline Phosphatase 78, Total Protein 5.9 L, Albumin 3.1 L, Globulin 2.8, Albumin/Globulin Ratio 1.1 03/31/21 05:31: POC Glucose 166 H I & O for Last 24 hours: Intake & Output 0603/29/21 03/30/21 03/31/21 11:59 11:59 11:59 11:59 Intake Total 1100 / 1100 1920 / 1920 2400 / 2400 Output Total 100 / 100 200 / 200 400 / 400 Balance 1000 / 1000 1720 / 1720 1999 Weight 203 lb 206 lb 5 oz Microbiology Reports for the Last 24 Hours: Microbiology 03/28/21 21:00 Blood Blood Culture - Preliminary NO GROWTH AFTER 48 HOURS 03/28/21 21:00 Blood Blood Culture - Preliminary NO GROWTH AFTER 48 HOURS - Constitutional no acute distress - *Routine Respiratory Exam Absent: respiratory distress - *Routine Cardiovascular Exam Present: RRR - *Routine Abdominal Exam Present: soft
--- NOTE | 2021-03-31 09:46 | HMH.ACPN2 ---
Internal Medicine - PN: Subj *Date: 03/31/21 *Time: 09:46 Interval history: He had some nausea yesterday morning which may have been related to the hydrocodone. No problems since then. He has not required any additional pain medication. He is tolerating a bland diet. He has been out of bed and up in the chair. No bowel movement yet. Exam Vital signs and Labs for Last 24 Hours: Temp Pulse Resp BP Pulse Ox 98.3 F 70 17 176/73 H 92 L 03/31/21 07:33 03/31/21 07:37 03/31/21 07:37 03/31/21 07:33 03/31/21 07:37 Laboratory Results - last 24 hr 03/29/21 21:09: POC Glucose 186 H 03/30/21 12:05: POC Glucose 243 H 03/30/21 16:06: POC Glucose 167 H 03/30/21 20:17: POC Glucose 131 H 03/31/21 05:06: WBC 10.6, RBC 3.19 L, Hgb 9.4 L, Hct 27.9 L, MCV 87.6, MCH 29.6, MCHC 33.8, RDW 14.3, Plt Count 209, MPV 8.5, Neut % (Auto) 81.2 H, Lymph % (Auto) 11.4, [place] % (Auto) 6.2, Eos % (Auto) 1.1, Baso % (Auto) 0.2, Neut # (Auto) 8.6 H, Lymph # (Auto) 1.2, [place] # (Auto) 0.7, Eos # (Auto) 0.1, Baso # (Auto) 0.0 03/31/21 05:06: Sodium 139, Potassium 3.5, Chloride 109 H, Carbon Dioxide 24, Anion Gap 9.5, BUN 24 H, Creatinine 1.30 H, Estimated Creat Clear 59, Estimated GFR 53 L, Est GFR ( Amer) 64, Glucose 156 H D, Calcium 7.8 L, Total Bilirubin 1.6 H, AST 50 D, ALT 83 H D, Alkaline Phosphatase 78, Total Protein 5.9 L, Albumin 3.1 L, Globulin 2.8, Albumin/Globulin Ratio 1.1 03/31/21 05:31: POC Glucose 166 H I & O for Last 24 hours: Intake & Output 03/28/21 03/29/21 03/30/21 03/31/21 11:59 11:59 11:59 11:59 Intake Total 1100 / 1100 1920 / 1920 2400 / 2400 Output Total 100 / 100 200 / 200 400 / 400 Balance 1000 / 1000 1720 / 1720 1999 Weight 203 lb 206 lb 5 oz Microbiology Reports for the Last 24 Hours: Microbiology 03/28/21 21:00 Blood Blood Culture - Preliminary NO GROWTH AFTER 48 HOURS 03/28/21 21:00 Blood Blood Culture - Preliminary NO GROWTH AFTER 48 HOURS Narrative: He is awake and alert and appears in no distress. Color is good. Lungs are clear to auscultation. Heart is regular. Abdomen is soft and nondistended with no unusual tenderness. Bowel sounds are present. Extremities no edema. Assessment and Plan (1) Gangrenous cholecystitis Status: Acute Category: Medical Code(s): K81.0 - Acute cholecystitis (2) Hypertension Status: Chronic Category: Medical Code(s): I10 - Essential (primary) hypertension (3) Hyperlipemia Status: Chronic Category: Medical Code(s): E78.5 - Hyperlipidemia, unspecified (4) Asthma Status: Chronic Category: Medical Code(s): J45.909 - Unspecified asthma, uncomplicated (5) Type 2 diabetes mellitus Status: Acute Category: Medical Code(s): E11.9 - Type 2 diabetes mellitus without complications (6) Subcapsular hematoma of liver Status: Acute Category: Medical Code(s): K76.89 - Other specified diseases of liver - Assessment and plan all Dx Assessment and Plan for all problems:: He is doing well postop. I discussed the case with Dr. Singer and he feels he is appropriate for discharge but would like to recheck his hemoglobin this afternoon and if stable will plan for discharge. He will follow-up with Dr. Singer in 3 days.
[2021-03-31 10:58] VITALS: BP 154/89; PULSE 73; RESP 17; TEMP 37.1; O2SAT 92
[2021-03-31 11:52] LABS: POC Glucose,Bedside 183 (70-110)
[2021-03-31 14:27] LABS: Hemoglobin 9.3 g/dL (14.1-18.0)
[2021-03-31 14:46] VITALS: BP 155/80; PULSE 77; RESP 17; TEMP 37.2; O2SAT 92
--- NOTE | 2021-04-01 07:11 | HMH.ANESII ---
[facility] Anesthesia Record Part II Discharge Time: 16:05 Destination: Medical Surgical Department PACU nurse assessment reviewed?: Yes Patient Condition:: Good Anesthesia Complications:: None Swallowing reflex intact?: Yes Cyanosis?: No Blood Pressure: 149/84 Pulse Rate: 106 Temperature: 99.4 F Mental Status: Alert & Oriented Pain level:: 0 Nausea and/or vomitting:: None Intake, IV Amount: 0
[2021-04-01 07:13] VITALS: BP 149/84; PULSE 106; TEMP 37.4
--- NOTE | 2021-04-01 22:52 | HMH.DCSUM ---
General - General Admission date:: 03/29/21 <Tj Pang - 04/26/21 08:17> 03/29/21 <Annia Penaloza - 04/01/21 22:57> Discharge date: 03/31/21 <Annia Penaloza - 04/01/21 22:57> HPI HPI: Mr. Lawson is an 80-year-old male with a history of hypertension, hyperlipidemia, asthma, and prediabetes who began feeling poorly at the beginning of this week. He has had epigastric and right upper quadrant abdominal pain that has radiated into his back. He has been nauseated and extremely weak. Yesterday he began vomiting and was so weak he could not get up. He was transported to the emergency room and evaluated. A CT scan showed changes consistent with severe cholecystitis with a possible subhepatic abscess versus an infected hematoma. He was admitted and surgery was consulted. He was started on IV antibiotics and Dr. Singer saw the patient. He plans cholecystectomy at 11 AM today. <Annia Penaloza - 04/01/21 22:57> Hospital Course Hospital Course: Patient was started on IV antibiotics and was seen in consultation by Dr. Singer. He was taken to the OR for a cholecystectomy. The patient had an acute gangrenous cholecystitis as well as a subcapsular hepatic hematoma. The hematoma appeared to emanate from the margin of the gallbladder fossa and projected to the right lateral margin of the liver. There was a rent in the capsule of the hematoma secondary to maneuvering the gallbladder, but there was no definitive sign of ongoing blood loss with regard to the hematoma. The patient tolerated the procedure well. He did have some nausea after eating but his pain improved. His H&H remained stable. He was continued on IV antibiotics. There was no definitive blood loss secondary to the sepsis capsular hematoma, however his blood work did show a mild decrease in his H&H. Repeat H&H was ordered and surgery felt if this was stable, patient could be discharged home. He was able to tolerate a bland diet and was out of bed and up in his chair. His H&H remained stable and he was stable to be discharged home with follow-up with Dr. Singer. <Annia Penaloza - 04/01/21 22:57> Objective Vital signs: Temp Pulse Resp BP Pulse Ox 99.4 F 106 H 17 149/84 H 92 L 04/01/21 07:13 04/01/21 07:13 03/31/21 14:46 04/01/21 07:13 03/31/21 14:46 <Tj Pang - 04/26/21 08:17> Temp Pulse Resp BP Pulse Ox 99.4 F 106 H 17 149/84 H 92 L 04/01/21 07:13 04/01/21 07:13 03/31/21 14:46 04/01/21 07:13 03/31/21 14:46 <Annia Penaloza - 04/01/21 22:57> Narrative: He is awake and alert and appears in no distress. Color is good. Lungs are clear to auscultation. Heart is regular. Abdomen is soft and nondistended with no unusual tenderness. Bowel sounds are present. Extremities no edema. <Annia Penaloza - 04/01/21 22:57> Results Labs on day of discharge: Preliminary micro results at discharge 03/28/21 21:00 Blood Culture - Preliminary Blood NO GROWTH AFTER 48 HOURS 03/28/21 21:00 Blood Culture - Preliminary Blood NO GROWTH AFTER 48 HOURS <Annia Penaloza - 04/01/21 22:57> DS: Diagnosis - Discharge Diagnosis (1) Gangrenous cholecystitis Status: Acute (2) Hypertension Status: Chronic (3) Hyperlipemia Status: Chronic (4) Asthma Status: Chronic (5) Type 2 diabetes mellitus Status: Acute (6) Subcapsular hematoma of liver Status: Acute <Annia Penaloza - 04/01/21 22:52> (1) Gangrenous cholecystitis Status: Acute (2) Hypertension Status: Chronic (3) Hyperlipemia Status: Chronic (4) Asthma Status: Chronic (5) Type 2 diabetes mellitus Status: Acute (6) Subcapsular hematoma of liver Status: Acute <Tj Pang - 04/26/21 08:17> Discharge Plan - Patient Discharge Instructions ACTIVITY: Limited activity <Annia Penaloza - 04/01/21 22:57> DIET: advance to your usual diet <Annia Penaloza - 04/01/21 22:57>
== END 2021-03-31 15:27 | disposition home or self-care (01) ==
LOC: ER 20:10 → 2ND 22:14
PROVIDERS: Emergency Medicine; Surgery; Admitting Provider Family Medicine; Emergency Provider Emergency Medicine; PCP Internal Medicine; Visit Provider Family Medicine
PROC: 0FT44ZZ Resection of Gallbladder, Percutaneous Endoscopic Approach (ICD-10-PCS; CPT 47562; principal; 2021-03-29 12:30)
DX: K81.0 Acute cholecystitis (principal); K82.A1 Gangrene of gallbladder in cholecystitis; I10 Essential (primary) hypertension; E78.5 Hyperlipidemia, unspecified; J45.909 Unspecified asthma, uncomplicated; E11.9 Type 2 diabetes mellitus without complications; Z96.643 Presence of artificial hip joint, bilateral
CPT/HCPCS: 47562; 36415; 71045; 74177; 76705; 80053; 81001; 82962; 83605; 83690; 83735; 84145; 85007; 85014; 85018; 85025; 85651; 86140; 87040; 88304; 93005; 94640; 96365; 96367; 99284; G0378; J2405; J2543; J2710; Q9967; U0003

== ENCOUNTER → 2021-04-03 15:14 | Outpatient (CLI) | payer MEDICARE, SELFPAY ==
--- NOTE | 2021-04-03 15:21 | XR_ITS ---
PROCEDURE: XR CHEST 2V CLINICAL HISTORY: SOA, S/P CHOLECYSTECTOMY COMPARISON: 03/28/2021 FINDINGS: Heart is mildly enlarged with mild pulmonary vascular congestion and small right and tiny left bilateral pleural effusions. Mild bibasilar atelectasis. No pneumothorax. Small hiatal hernia again noted. No acute bony abnormality. IMPRESSION: Mild cardiomegaly with mild pulmonary vascular congestion small right and tiny left bilateral pleural effusions. Mild bibasilar atelectasis. Dictated by: Dez Jones MD 04/03/2021 15:35 Dez Jones MD in OV 04/03/2021 15:35
== END ==
PROVIDERS: PCP Internal Medicine; Visit Provider Internal Medicine
DX: R06.02 Shortness of breath (principal); Z90.49 Acquired absence of other specified parts of digestive tract
CPT/HCPCS: 71046

== ENCOUNTER → 2021-04-08 14:28 | Outpatient (CLI) | payer MEDICARE, SELFPAY ==
--- NOTE | 2021-04-08 14:31 | CA_ITS ---
APPROVED REPORT EXAM: Comprehensive 2D, Doppler, and color-flow Echocardiogram Meter/Relay Technician: Erma Hood CRT Ht: 5 ft 10 in Wt: 215lbs BSA: 2.15 BP: 159/59 mmHg Indications: Diabetes, Fatigue, Hyperlipidemia, Hypertension/HDD, Asthma, CHF 2D Dimensions LVOT 2.08 cm (M/F) 1.5-2.5 LA Volume 59.90 mL LA Volume Index 27.90 mL/m2 (M/F) 16-34 M-Mode Dimensions RVDd 2.82 cm (0.9-2.6) LA Diam 3.85 cm (1.9-4.0) LVDd 3.84 cm (3.5-5.7) Ao Diam 4.10 cm (2.0-3.7) LVDs 2.72 cm (3.5-5.7) IVSd 2.16 cm (0.6-1.1) PWd 1.02 cm (0.6-1.1) EF (Teich) 56.70% FS 29.20% EDV (Teich) 63.50 mL TAPSE 1.92 (<1.7) ESV (Teich) 27.50 mL LV Diastology E Decel Time 230.00 (160-240 msec) E/A Ratio 0.49 MED E' 5.40 (< 7 cm/sec) MED A' 8.20 cm/s E'/MED E' Ratio 8.43 (>14) LAT E' 7.10 (<10 cm/sec) LAT A' 13.80 cm/s E/LAT E' Ratio 6.41 (>14) Aortic Valve LVOT Max 116.00 (70-110 cm/s) LVOT VTI 22.86 cm AoV Peak Bethel. 214.00 (50-130 cm/s) AI PHT 479.00 ms AO Peak GR. 18.30 mmHg AO Mean GR. 10.00 (<5 mmHg) AO VTI 34.24 (18-25 cm) SANDRA (VTI) 2.27 (2.5-4.5 cm2) Mitral Valve MV A Velocity 93.00 (40-130 cm/s) E/A Ratio 0.49 MV Decel. Time 230.00 (160-240 ms) Pulmonary Valve PV Peak Velocity 43.00 (50-150 cm/s) Tricuspid Valve TR P. Velocity 214.00 cm/s RAP Estimate 10.00 mmHg RVSP 28.30 mmHg Left Ventricle Left atrium is mildly enlarged, left ventricle is normal size, mild concentric left ventricular hypertrophy, visually estimated ejection fraction 55% with no regional wall motion abnormality, grade 1 diastolic dysfunction seen without tissue Doppler evidence of raise left atrial pressure. Right Ventricle Right atrium and right ventricle are normal size and contractility. Aortic Valve Aortic valve is thickened and calcified with mild aortic stenosis, there is mild aortic insufficiency. Mitral Valve Mitral valve grossly normal, there is mild mitral regurgitation. Tricuspid Valve Tricuspid valve is grossly normal, there is mild tricuspid regurgitation, tricuspid regurgitation jet velocity is inadequate for calculation of the right ventricular systolic pressure. Pulmonic Valve Pulmonic valve is poorly visualized. Great Vessels Aortic root is normal size. Pericardium No significant pericardial effusion noted. Conclusion 1. Mildly enlarged left atrium, normal left ventricular size, mild concentric left ventricular hypertrophy, visually estimated ejection fraction 55% with no regional wall motion abnormality, grade 1 diastolic dysfunction seen without tissue Doppler evidence of raise left atrial pressure. 2. Thickened and calcified aortic valve with mild aortic stenosis, there is mild aortic insufficiency. 3. No significant pericardial effusion noted. Electronically signed by : Jamari Sanchez, 04/08/2021 22:14:52
== END ==
PROVIDERS: PCP Internal Medicine; Visit Provider Internal Medicine
DX: I50.9 Heart failure, unspecified (principal); I11.0 Hypertensive heart disease with heart failure; R53.1 Weakness; R53.83 Other fatigue
CPT/HCPCS: 93306

== ENCOUNTER → 2021-06-28 10:02 | Outpatient (CLI) | payer MEDICARE, SELFPAY ==
[2021-06-28 10:18] LABS: Basophils % 0.4 % (0.1-2.0); Eosinophils # 0.3 K/mm3 (0.0-0.4); Eosinophils % 3.7 % (0.1-12.0); Hematocrit 38.7 % (42.0-52.0); Lymphocytes # 1.6 K/mm3 (0.7-4.5); Lymphocytes % 21.1 % (10-50); Mean Corpuscular Hemoglobin 28.2 pg (27.0-31.2); Mean Corpuscular Volume 90.9 fl (80-94); Mean Platelet Volume 8.4 fl (7.4-10.4); Monocytes # 0.5 K/mm3 (0.1-1.0); Monocytes % 5.8 % (1.7-9.3); Neutrophils # 5.3 K/mm3 (1.8-7.8); Neutrophils % 68.9 % (37.0-80.0); Platelet Count 252 K/mm3 (142-424); Red Blood Count 4.26 M/mm3 (4.60-6.20); Red Cell Distribution Width 14.8 % (11.5-17.5); White Blood Count 7.7 K/mm3 (4.8-10.8)
[2021-06-28 11:27] LABS: Alanine Aminotransferase 19 U/L (12-78); Albumin/Globulin Ratio 1.3 (1.1-1.8); Alkaline Phosphatase 95 U/L (38-126); Anion Gap 16.5 mEq/L (5-15); Aspartate Amino Transferase 23 U/L (17-59); Bilirubin,Total 0.7 mg/dl (0.2-1.3); Blood Urea Nitrogen 16 mg/dl (9-20); Carbon Dioxide 25 mmol/L (22.0-30.0); Chloride 105 mmol/L (98-107); Estimated Glomerular Filt Rate 64 ml/min (>60); GFR (African American) 78 ML/MIN (>60); Glucose 170 mg/dl (74-100); Potassium 4.5 mmoL/L (3.5-5.1); Sodium 142 mmol/L (136-145)
== END ==
PROVIDERS: Visit Provider Surgery
DX: R53.1 Weakness (principal); K82.2 Perforation of gallbladder
CPT/HCPCS: 36415; 80053; 85025

== ENCOUNTER → 2021-07-01 08:48 | Outpatient (CLI) | payer MEDICARE, SELFPAY ==
--- NOTE | 2021-07-01 08:48 | CT_ITS ---
PROCEDURE: CT ABDOMEN WO/W CON CLINICAL HISTORY: liver protocol Follow-up liver lesion COMPARISON: CT CT ABDOMEN PELVIS W CON from 03/28/2021 US US GALLBLADDER from 03/29/2021 CR XR CHEST 2V from 04/03/2021 TECHNIQUE: 75 mL Isovue 370 IV with pre and post enhanced dynamic imaging Axial images obtained with sagittal and coronal reformats. All CT scans at the facility use one or more dose reduction, viz: automated exposure control, ma/kV adjustment per patient size (including targeted exams where dose is matched to indication, i.e. head), or iterative reconstruction technique. FINDINGS: Lung bases: Motion artifact. Coronary artery calcifications. Small hiatal hernia. Abdomen and pelvis: Interval cholecystectomy. Stable 8 mm hypodensity segment 7 of the liver. Previously noted subcapsular collection along the posterior aspect of the right hepatic lobe segment 6 is much smaller 3.5 x 3.1 cm previously the proximally 12 by 5 cm. No gas evident within the collection. There is some minimal stranding of the peritoneal fat adjacent to this collection. There is no delayed enhancement of this collection. The spleen, adrenal glands, pancreas, and kidneys show no acute finding. There are small right renal cyst and there is mild ectasia of the left renal pelvis. No renal or ureteral calculi. There is diffuse colonic diverticulosis without diverticulitis. IMPRESSION: 1. Persistent but much smaller collection of the right hepatic lobe which may represent resolving hematoma. 2. Interval cholecystectomy. Dictated by: You Montoya MD 07/02/2021 08:34 You Montoya MD in OV 07/02/2021 08:34
== END ==
PROVIDERS: PCP Internal Medicine; Visit Provider Surgery
DX: K76.89 Other specified diseases of liver (principal)
CPT/HCPCS: 74170; Q9967

== ENCOUNTER → 2022-01-07 12:18 | Outpatient (CLI) | payer MEDICARE, SELFPAY ==
[2022-01-07 13:59] LABS: Basophils % 0.4 % (0.1-2.0); Eosinophils # 0.4 K/mm3 (0.0-0.4); Hematocrit 39.4 % (42.0-52.0); Hemoglobin 12.6 g/dL (14.1-18.0); Lymphocytes # 1.5 K/mm3 (0.7-4.5); Lymphocytes % 19.6 % (10-50); Mean Corpuscular Hemoglobin 29.4 pg (27.0-31.2); Mean Corpuscular Volume 91.8 fl (80-94); Mean Platelet Volume 8.9 fl (7.4-10.4); Monocytes # 0.6 K/mm3 (0.1-1.0); Neutrophils # 5.3 K/mm3 (1.8-7.8); Neutrophils % 67.9 % (37.0-80.0); Platelet Count 224 K/mm3 (142-424); Red Blood Count 4.29 M/mm3 (4.60-6.20); Red Cell Distribution Width 14.6 % (11.5-17.5); White Blood Count 7.8 K/mm3 (4.8-10.8)
[2022-01-07 15:21] LABS: Alanine Aminotransferase 26 U/L (12-78); Albumin/Globulin Ratio 1.5 (1.1-1.8); Alkaline Phosphatase 85 U/L (38-126); Anion Gap 13.8 mEq/L (5-15); Aspartate Amino Transferase 33 U/L (17-59); Bilirubin,Total 0.8 mg/dl (0.2-1.3); Blood Urea Nitrogen 22 mg/dl (9-20); Calcium 8.9 mg/dl (8.4-10.2); Carbon Dioxide 25 mmol/L (22.0-30.0); Chloride 104 mmol/L (98-107); Chol/HDL Ratio 4.3 (1-3.5); Cholesterol 170 mg/dl (140-200); Estimated Glomerular Filt Rate 58 ml/min (>60); GFR (African American) 70 ML/MIN (>60); Globulin 2.7 g/dL (1.3-3.2); Glucose 135 mg/dl (74-100); HDL Cholesterol 40 mg/dl (40-60); Potassium 4.8 mmoL/L (3.5-5.1); Sodium 138 mmol/L (136-145); Total Protein,Serum 6.7 g/dl (6.3-8.2); Triglycerides 92 mg/dl (30-150); VLDL Cholesterol 18 mg/dL (0-40)
[2022-01-07 15:32] LABS: Direct LDL Cholesterol 103.43 mg/dL (100-129)
[2022-01-07 15:50] LABS: Prostate Specific Ag Screen 3.7 ng/ml (0.0-4.0)
[2022-01-07 17:14] LABS: Creatinine,Urine Random 228 mg/dL (Not Estab.)
[2022-01-07 17:19] LABS: Microalbumin/Creatinine Ratio 55.8
[2022-01-07 18:23] LABS: Hemoglobin A1C 7.1 % (4.0-6.0)
== END ==
PROVIDERS: Visit Provider Internal Medicine
DX: E11.9 Type 2 diabetes mellitus without complications (principal); E78.5 Hyperlipidemia, unspecified; I87.2 Venous insufficiency (chronic) (peripheral); N18.30 Chronic kidney disease, stage 3 unspecified; M17.0 Bilateral primary osteoarthritis of knee; N40.1 Benign prostatic hyperplasia with lower urinary tract symptoms; Z12.5 Encounter for screening for malignant neoplasm of prostate; Z79.84 Long term (current) use of oral hypoglycemic drugs
CPT/HCPCS: 80053; 80061; 82043; 82570; 83036; 85025; G0103

== ENCOUNTER → 2022-04-25 16:16 | Outpatient (CLI) | payer MEDICARE, SELFPAY | PROVIDERS: PCP Internal Medicine; Visit Provider Internal Medicine | DX: Z20.822 Contact with and (suspected) exposure to COVID-19 (principal) | CPT/HCPCS: C9803; U0003; U0005 ==

== ENCOUNTER 2022-10-03 16:00 | Observation (INO) | payer MEDICARE, SELFPAY ==
[2022-10-03] VITALS (8 sets, daily range): BP systolic 158–229; BP diastolic 74–104; PULSE 72–86; RESP 18–26; TEMP 36.6–38.4; O2SAT 93–99; BMI 30.1
--- NOTE | 2022-10-03 16:16 | PC.NURSE ---
PT assessed at this time. A&O times three. V/S obtained and pt advised ED volume increased at this time and we would get him back to a room as quickly as we could. Pt agreeable at this time and placed back in lobby.
--- NOTE | 2022-10-03 17:19 | XR_ITS ---
PROCEDURE INFORMATION: Exam: XR Chest Exam date and time: 10/03/2022 5:48 PM Age: 81 years old Clinical indication: Cough; Additional info: Cough, fever TECHNIQUE: Imaging protocol: Radiologic exam of the chest. Views: 1 view. COMPARISON: CR XR CHEST 2V 04/03/2021 3:23 PM FINDINGS: Lungs: Atelectasis and/or early infiltrative changes noted within both lung bases. Bilateral hyperinflation is present. Pleural spaces: Left pleural effusion. Heart/Mediastinum: Unremarkable. No cardiomegaly. Vasculature: The vasculature demonstrates diffuse mild atherosclerotic calcification. Bones/joints: The thoracic spine demonstrates mild degenerative changes at multiple levels. IMPRESSION: 1. Atelectasis and/or early infiltrative changes noted within both lung bases. 2. Bilateral hyperinflation is present. 3. Left pleural effusion.
[2022-10-03 17:55] LABS: Chloride 105 mmol/L (98-107); Potassium 4.3 mmoL/L (3.5-5.1); Sodium 140 mmol/L (136-145)
[2022-10-03 17:58] LABS: Alanine Aminotransferase 28 U/L (12-78); Albumin/Globulin Ratio 1.4 (1.1-1.8); Alkaline Phosphatase 87 U/L (38-126); Anion Gap 9.3 mEq/L (5-15); Aspartate Amino Transferase 30 U/L (17-59); Bilirubin,Total 0.7 mg/dl (0.2-1.3); Blood Urea Nitrogen 11 mg/dl (9-20); Carbon Dioxide 30 mmol/L (22.0-30.0); Creatinine Clearance Estimated 55 mL/min (50-200); Estimated Glomerular Filt Rate 49 ml/min (>60); GFR (African American) 59 ML/MIN (>60); Globulin 2.8 g/dL (1.3-3.2); Total Protein,Serum 6.8 g/dl (6.3-8.2)
[2022-10-03 17:59] LABS: Calcium 9.1 mg/dl (8.4-10.2); Glucose 129 mg/dl (74-100)
[2022-10-03 18:01] LABS: Basophils % 0.8 % (0.1-2.0); Eosinophils # 0.1 K/mm3 (0.0-0.4); Eosinophils % 1.1 % (0.1-12.0); Hematocrit 37.1 % (42.0-52.0); Hemoglobin 11.9 g/dL (14.1-18.0); Lymphocytes # 0.6 K/mm3 (0.7-4.5); Lymphocytes % 12.9 % (10-50); Mean Corpuscular HGB Conc 32.1 g/dL (31.8-35.4); Mean Corpuscular Hemoglobin 28.9 pg (27.0-31.2); Mean Corpuscular Volume 90.1 fl (80-94); Mean Platelet Volume 8.1 fl (7.4-10.4); Monocytes # 0.5 K/mm3 (0.1-1.0); Neutrophils # 3.6 K/mm3 (1.8-7.8); Neutrophils % 74.2 % (37.0-80.0); Platelet Count 180 K/mm3 (142-424); Red Blood Count 4.11 M/mm3 (4.60-6.20); White Blood Count 4.8 K/mm3 (4.8-10.8)
--- NOTE | 2022-10-03 18:10 | HMH.EDGENADL ---
Discharge Plan Disposition Patient Disposition: Admitted As Inpatient Chief Complaint: Weakness Prescriptions Prescriptions: No Action multivitamin 1 EACH tablet 1 each PO DAILY metformin 500 MG tablet 500 mg PO BID atorvastatin 10 MG tablet 10 mg PO HS diltiazem HCl 240 MG capsule,extended release 24hr 240 mg PO DAILY aspirin 81 MG tablet,delayed release (DR/EC) 81 mg PO DAILY Hold Instructions: Resume on 04/07/21. omeprazole 20 MG capsule,delayed release(DR/EC) 20 mg PO DAILY donepezil 5 MG tablet 5 mg PO HS amoxicillin-pot clavulanate 1 EACH tablet 1 tab PO Q12H Qty: 10 0RF Referrals Follow up/Referrals: Higinio Daily MD [Primary Care Provider] - See instructions Clinical Impressions Clinical Impression: COVID-19, Declining functional status, Encephalopathy Discharge ED Provider: Cody Moss General Adult HPI General Chief complaint: Weakness Stated complaint: cough, SOB Time Seen by Provider: 10/03/22 18:00 Mode of Arrival: Wheelchair Source of Information: Patient and Relative Limitations: Altered Mental Status Description of Symptoms (Recalled from ER Triage Doc. by RN): Pt reports cough, fever, not feeling well for approx 10 days. Pt reports has seen his PCP recently (dr. daily) got a shot . Pt family member reports pt has been confused today, pt not able to follow commands well during triage. Pt needed full assist x1 person to get from wheelchair to stretcher. Pt alert, able to answer all orientation questions during triage but pt was swatting at the air multple times. History of Present Illness HPI narrative: Patient is an 81-year-old male with past medical history of hypertension, hyperlipidemia, asthma who presents emergency department for evaluation of shortness of breath and fever. Patient has reportedly had a cough, fevers for the last 7 to 10 days. has similar symptoms. Due to patient being unable to ambulate without assistance they present here for continued evaluation. Patient denies headache, chest pain, abdominal pain, acute rashes or arthralgias. Patient is alert and oriented throughout my evaluation. Son is at bedside and is worried about a urinary tract infection. Related Data Home Medications Medication Instructions Recorded Confirmed aspirin 81 mg tablet,delayed 81 mg PO DAILY CAD 03/28/21 07/10/21 release atorvastatin 10 mg tablet 10 mg PO HS Cholesterol 03/28/21 07/10/21 diltiazem HCl 240 mg 240 mg PO DAILY High blood pressure 03/28/21 07/10/21 capsule,extended release 24 hr metformin 500 mg tablet 500 mg PO BID Diabetes 03/28/21 07/10/21 multivitamin 1 each PO DAILY Diet supplement 03/28/21 07/10/21 omeprazole 20 mg capsule,delayed 20 mg PO DAILY acid reflux 03/28/21 07/10/21 release donepezil 5 mg tablet 5 mg PO HS dementia 03/29/21 07/10/21 Previous Rx's Medication Instructions Recorded amoxicillin 875 mg-potassium 1 tab PO Q12H #10 tabs 03/31/21 clavulanate 125 mg tablet Allergies Allergy/AdvReac Type Severity Reaction Status Date / Time No Known Drug Allergies Allergy Unknown Verified 07/10/21 13:30 [NO KNOWN DRUG ALLERGIES] [facility] Disclaimer: The information contained in this section may have been updated after the patient was seen, as this information can be updated by other users. Social History Smoking Status: Never smoker alcohol intake: never substance use type: denies use current occupational status: retired Travel in the last 8 weeks: None caffeine: Yes ROS Obtained: Yes Systems reviewed as appropriate & no additional complaints except as documented Physical Exam General General appearance: alert and in no apparent distress Head Head exam: atraumatic and normocephalic Eye Eye exam: Present PERRL and EOMI ENT ENT exam: Present mucous membranes moist Neck Neck exam: Present normal inspection Chest Chest inspection: Present normal insp
[2022-10-03 18:18] LABS: Microscopic, Urine URINE MICROSCOPIC (MICROSCOPIC)
[2022-10-03 18:19] LABS: Appearance,Urine CLEAR (Clear); Bilirubin,Urine Negative (Negative); Blood, Urine Negative (Negative); Color,Urine YELLOW (Yellow); Glucose,Urine (UA) Negative (Negative); Ketones,Urine Negative (Negative); Leukocyte Esterase,Urine Negative (Negative); Nitrate,Urine Negative (Negative); Protein,Urine 2+ (Negative); Specific Gravity, Urine >= 1.030 (1.005-1.030)
[2022-10-03 18:26] LABS: Influenza A, PCR Not Detected (NotDetected); Influenza B, PCR Not Detected (NotDetected)
[2022-10-03 18:37] LABS: Bacteria,Urine 1+ /lpf; Mucus,Urine 1+ /lpf; RBC,Urine Occasional #/hpf (0-3)
[2022-10-03 19:19] LABS: Coronavirus 19, PCR Detected (NotDetected)
--- NOTE | 2022-10-03 19:30 | PC.NURSE ---
shift change report given to shahlarn
--- NOTE | 2022-10-03 21:08 | PC.NURSE ---
Rechecked pt condition. PT/family made aware they are waiting to be transferred upstairs.
--- NOTE | 2022-10-03 21:27 | PC.NURSE ---
spoke with Ed the Hospitalist about pt admission. she will be down when able
--- NOTE | 2022-10-03 21:50 | EXP.HP ---
History of Present Illness *Admission Date: 10/03/22 *Reason for visit:: Weakness, cough, fevers *History of present illness: Mr. Tillman is a 81-year-old male with a past medical history of DM, Hyperlipidemia and HTN. He presented to [facility] due to a 10-day period of cough, fever and progressive weakness. In the ER he had a CBC that was unremarkable. CMP showed a slightly high creatinine at 1.40. Cxray showed a left pleural effusion. COVID testing was positive. Family reports that since his illness he is an assist x 2 to walk. He normally walks on his own. The patient will be admitted with initial impression: Functional Decline and COVID. PT will be consulted to see the patient. He will be given nebulizers and monitored on telemetry. The plan of care was discussed with the patient and son at bedside. Both verbalized understanding and agreement with the plan of care. [facility] Disclaimer: The information contained in this section may have been updated after the patient was seen, as this information can be updated by other users. Medical History (Updated 10/03/22 @ 23:14 by Dione Cook RN) Cataract Diabetes History of recurrent UTI (urinary tract infection) Hyperlipidemia Hypertension Surgical History (Updated 10/03/22 @ 23:14 by Dione Cook RN) History of cholecystectomy History of hip surgery Family History (Updated 10/03/22 @ 23:14 by Dione Cook RN) No significant family history Social History (Updated 10/03/22 @ 23:14 by Dione Cook RN) Smoking Status: Never smoker alcohol intake: never substance use type: denies use current occupational status: retired Travel in the last 8 weeks: None education level: college caffeine: Yes Review of Systems Review of Systems Review of systems:: pertinent systems reviewed and negative unless documented below Constitutional Constitutional: Reports body ache(s), Reports fatigue, Reports fever(s) and Reports weakness Eyes Eyes: Reports system reviewed and no additional complaints, except as documented ENT Ears, Nose, Mouth, and Throat: Reports nasal congestion *Cardiovascular Cardiovascular: Reports system reviewed and no additional complaints, except as documented and Reports dyspnea *Respiratory Respiratory: Reports cough and Reports dyspnea *Gastrointestinal Gastrointestinal: Reports system reviewed and no additional complaints, except as documented *Genitourinary Genitourinary: Reports system reviewed and no additional complaints, except as documented *Musculoskeletal Musculoskeletal: Reports muscle weakness and Reports myalgias Integumentary/Breasts Skin/Breast: Reports system reviewed and no additional complaints, except as documented *Neurologic Neurologic: Reports weakness Psychiatric Psychiatric: Reports system reviewed and no additional complaints, except as documented Endocrine Endocrine: Reports fatigue Hematologic/Lymphatic Hematologic/Lymphatic: Reports system reviewed and no additional complaints, except as documented Allergic/Immunologic Allergic/Immunologic: Reports system reviewed and no additional complaints, except as documented Meds Home Medications and Allergies Home Medications Medication Instructions Recorded Confirmed Type aspirin 81 mg tablet,delayed 81 mg PO DAILY CAD 03/28/21 10/04/22 History release atorvastatin 10 mg tablet 10 mg PO HS Cholesterol 03/28/21 10/04/22 History diltiazem HCl 240 mg 240 mg PO DAILY High blood pressure 03/28/21 10/04/22 History capsule,extended release 24 hr metformin 500 mg tablet 500 mg PO BID Diabetes 03/28/21 10/04/22 History multivitamin 1 each PO DAILY Diet supplement 03/28/21 10/04/22 History omeprazole 20 mg capsule,delayed 20 mg PO HS acid reflux 03/28/21 10/04/22 History release donepezil 5 mg tablet 5 mg PO HS dementia 03/29/21 10/04/22 History multivitamin,an-jsey-dooaqagh 1 tab PO DAILY Supplement 10/03/22 1
--- NOTE | 2022-10-03 22:49 | PC.NURSE ---
pt arrived to the floor via wheelchair @ [id number]
[2022-10-04 03:49] VITALS: BP 145/76; PULSE 66; RESP 20; TEMP 36.9; O2SAT 94
[2022-10-04 03:50] VITALS: BMI 29.8
[2022-10-04 07:07] LABS: POC Glucose,Bedside 115 (70-110)
[2022-10-04 07:17] VITALS: BP 106/63; PULSE 71; RESP 20; TEMP 36.6; O2SAT 93
--- NOTE | 2022-10-04 07:41 | PC.NURSE ---
pt rested well through the night, no changes from initial assessment, son remained at bedside, 02 sats wnl, no acute distress, vss, lung sounds diminished, no other issues or concerns at this time.
[2022-10-04 11:03] LABS: POC Glucose,Bedside 162 (70-110)
[2022-10-04 11:20] VITALS: BP 147/80; PULSE 65; RESP 18; TEMP 36.8; O2SAT 93
--- NOTE | 2022-10-04 12:04 | EXP.DC.SUM ---
General Admission date:: 10/03/22 Discharge date: 10/04/22 HPI HPI HPI: Mr. Tillman is a 81-year-old male with a past medical history of DM, Hyperlipidemia and HTN. He presented to [facility] due to a 10-day period of cough, fever and progressive weakness. In the ER he had a CBC that was unremarkable. CMP showed a slightly high creatinine at 1.40. Cxray showed a left pleural effusion. COVID testing was positive. Family reports that since his illness he is an assist x 2 to walk. He normally walks on his own. The patient will be admitted with initial impression: Functional Decline and COVID. PT will be consulted to see the patient. He will be given nebulizers and monitored on telemetry. The plan of care was discussed with the patient and son at bedside. Both verbalized understanding and agreement with the plan of care. Hospital Course Hospital Course Hospital Course: 81-year-old male with past medical history of DM, Hypertension and Hyperlipidemia presents with a 10-day history of cough, fevers, and progressive weakness.? Found to have COVID. - Declining Functional Status -COVID-19 Mr. Tillman has been sick for the past 10 days. is also ill. He has become more confused and fatigued. Requiring more assistance. On arrival to the ER, found to be COVID-positive with low blood pressure and DIXON. Admitted overnight, given IV fluids, had improvement in mentation and back to baseline by morning. PT evaluated patient, required minimal assistance to get up, independent on his own thereafter. Recommended assistive device while he gets stronger but otherwise stable to discharge home. Tolerated breakfast this morning without any difficulty. We will hold patient's loop diuretic at discharge pending follow-up with his primary care. Encouraged to aggressively hydrate once home. Stable on room air during admission. No indication for treatment for COVID. - Diabetes Sliding scale while inpatient and Diabetic diet - DIXON: Mild, improved with fluids. - Hypertension: Continue home diltiazem. Held diuretic. Resume home regimen other than loop diuretic at discharge Stable for discharge home, recommend following up with PCP in 1 to 2 weeks. Exam Data for Last 24 hours Vital signs and Labs for Last 24 Hours: Temp Pulse Resp BP Pulse Ox 98.3 F 65 18 147/80 H 93 L 10/04/22 11:20 10/04/22 11:20 10/04/22 11:20 10/04/22 11:20 10/04/22 11:20 Laboratory Results - last 24 hr 10/03/22 17:23: WBC 4.8, RBC 4.11 L, Hgb 11.9 L, Hct 37.1 L, MCV 90.1, MCH 28.9, MCHC 32.1, RDW 14.0, Plt Count 180, MPV 8.1, Neut % (Auto) 74.2, Lymph % (Auto) 12.9, Otoe % (Auto) 11.0 H, Eos % (Auto) 1.1, Baso % (Auto) 0.8, Neut # (Auto) 3.6, Lymph # (Auto) 0.6 L, Otoe # (Auto) 0.5, Eos # (Auto) 0.1, Baso # (Auto) 0.0 10/03/22 17:23: Sodium 140, Potassium 4.3, Chloride 105, Carbon Dioxide 30, Anion Gap 9.3, BUN 11, Creatinine 1.40 H, Estimated Creat Clear 55, Estimated GFR 49 L, Est GFR ( Amer) 59, Glucose 129 H, Calcium 9.1, Total Bilirubin 0.7, AST 30, ALT 28, Alkaline Phosphatase 87, Total Protein 6.8, Albumin 4.0, Globulin 2.8, Albumin/Globulin Ratio 1.4 10/03/22 17:23: Lactate 1.0 10/03/22 17:31: SARS-CoV-2 (PCR) Detected A, Influenza A Untype (PCR) Not detected, Influenza Type B (PCR) Not detected 10/03/22 17:54: Urine Color Yellow, Urine Appearance Clear, Urine pH 6.0, Ur Specific Geddes >= 1.030, Urine Protein 2+, Urine Glucose (UA) Negative, Urine Ketones Negative, Urine Blood Negative, Urine Nitrate Negative, Urine Bilirubin Negative, Urine Urobilinogen 1.0, Ur Leukocyte Esterase Negative, Urine RBC Occasional, Ur Squamous Epith Cells 3-5, Urine Bacteria 1+, Urine Mucus 1+ 10/04/22 06:39: POC Glucose 115 H 10/04/22 10:48: POC Glucose 162 H I & O for Last 24 hours: Intake & Output 10/01/22 10/02/22 10/03/22 10/04/22 23:59 23:59 23:59 23:59 Intake Total 240 / 240 Output Total 0 / 0 0 / 0 Balance 0 / 0 240
[2022-10-04 12:06] LABS: Chloride 110 mmol/L (98-107); Potassium 5.3 mmoL/L (3.5-5.1); Sodium 138 mmol/L (136-145)
[2022-10-04 12:09] LABS: Anion Gap 11.3 mEq/L (5-15); Blood Urea Nitrogen 17 mg/dl (9-20); Calcium 8.7 mg/dl (8.4-10.2); Carbon Dioxide 22 mmol/L (22.0-30.0); Creatinine Clearance Estimated 69 mL/min (50-200); Estimated Glomerular Filt Rate 64 ml/min (>60); GFR (African American) 78 ML/MIN (>60); Glucose 130 mg/dl (74-100)
--- NOTE | 2022-10-04 12:28 | HMH.PTEV ---
Physical Therapy Evaluation Rehab PT IP Evaluation Start: 10/03/22 22:00 Freq: ONCE Status: Active Protocol: Document 10/04/22 12:10 PDESEROUX (Rec: 10/04/22 12:28 PDESEROUX [id number]) Subjective/History History History Pt. is a 81 year old male whom presents to [facility] 2nd floor Inpatient for a Physical Therapy consult this morning(10/04/22) w/ c/o COVID , weakness, fatigue, and SOB. Pt.'s two sons was present in room at point of entry. Pt.'s referring MD was also present in room at this time. Pt. vocalized, I was dragged in here by my family. Pt.'s son mentioned that he had been sick for 10 days and that he had a cough and a fever. Pt. was tested positive for COVID and was given some shots recently to treat his symptoms . Pt. reports PLOF was IND. w/ ADLs @ home and did use a SPC to ambulate sometimes. Pt.' s son also mentioned that pt. would ambulate around his Tao[employer] by himself prior to getting sick. Pt. reports owning a walk-in shower, FWW, wheelchair, and SPC @ home. Pt . lives with his in a 1- story home, and two sons that live in [place] that would be able to assist at this time . Pt.'s son did however report that pt.'s also had COVID and was weak at this time. Pt.'s son report that pt .'s would assist in pt.'s meal prep. PMH includes DM, Hyperlipidemia, and HTN. Subjective Subjective Pt. reports, I'm ready to go home. Rehab PT IP Eval Objective Appearance Patient Behavior Appropriate,Cooperative Patient Orientation Person,Place,Situation Difficulty following instructions none Speech Pattern Clear,Appropriate,Coherent Ambulation Patient Able to Ambulate Yes Ambulation Observation IP Ge
--- NOTE | 2022-10-04 13:52 | PC.NURSE ---
pt has been discahrged with family @ bedside. pt and sons voiced understanding of all dc educatin and follow up appts. tele removed as well as saline lock. Case management to handle outpatient PT
--- NOTE | 2022-10-06 13:36 | CARE MANAGER ---
Called and spoke with patient's , to discuss post discharge status. She states that he is doing well, and plans to schedule f/u appointment with PCP. No complaints or concerns at this time.
== END 2022-10-04 13:45 | disposition home or self-care (01) ==
LOC: ER 21:53 → 2ND 22:17
PROVIDERS: Admitting Provider Internal Medicine Adolescent Medicine; Emergency Provider Emergency Medicine; PCP Internal Medicine; Visit Provider Internal Medicine Adolescent Medicine
DX: U07.1 COVID-19 (principal); E11.9 Type 2 diabetes mellitus without complications; N17.9 Acute kidney failure, unspecified; I10 Essential (primary) hypertension; Z79.84 Long term (current) use of oral hypoglycemic drugs; E78.5 Hyperlipidemia, unspecified; Z79.899 Other long term (current) drug therapy; Z20.822 Contact with and (suspected) exposure to COVID-19
CPT/HCPCS: G0378; 71045; 80048; 80053; 81001; 82962; 83605; 85025; 87040; 87086; 97161; 99285; C9803; U0003; U0005

== ENCOUNTER → 2023-02-20 16:45 | Outpatient (CLI) | payer MEDICARE, SELFPAY ==
[2023-02-20 17:26] LABS: Basophils % 0.4 % (0.1-2.0); Eosinophils # 0.4 K/mm3 (0.0-0.4); Eosinophils % 6.2 % (0.1-12.0); Hematocrit 39.1 % (42.0-52.0); Hemoglobin 12.6 g/dL (14.1-18.0); Lymphocytes # 1.5 K/mm3 (0.7-4.5); Lymphocytes % 22.4 % (10-50); Mean Corpuscular HGB Conc 32.2 g/dL (31.8-35.4); Mean Corpuscular Hemoglobin 28.9 pg (27.0-31.2); Mean Corpuscular Volume 89.6 fl (80-94); Mean Platelet Volume 8.5 fl (7.4-10.4); Monocytes # 0.5 K/mm3 (0.1-1.0); Monocytes % 7.3 % (1.7-9.3); Neutrophils # 4.3 K/mm3 (1.8-7.8); Neutrophils % 63.7 % (37.0-80.0); Platelet Count 244 K/mm3 (142-424); Red Blood Count 4.36 M/mm3 (4.60-6.20); Red Cell Distribution Width 14.4 % (11.5-17.5); White Blood Count 6.7 K/mm3 (4.8-10.8)
[2023-02-20 17:56] LABS: Chloride 98 mmol/L (98-107); Potassium 4.4 mmoL/L (3.5-5.1); Sodium 142 mmol/L (136-145)
[2023-02-20 17:58] LABS: Alanine Aminotransferase 26 U/L (12-78); Aspartate Amino Transferase 28 U/L (17-59); Blood Urea Nitrogen 18 mg/dl (9-20); Estimated Glomerular Filt Rate 58 ml/min (>60); GFR (African American) 70 ML/MIN (>60)
[2023-02-20 17:59] LABS: Albumin Level 4.3 g/dl (3.5-5.0); Albumin/Globulin Ratio 1.7 (1.1-1.8); Alkaline Phosphatase 102 U/L (38-126); Anion Gap 18.4 mEq/L (5-15); Bilirubin,Total 0.7 mg/dl (0.2-1.3); Calcium 9.2 mg/dl (8.4-10.2); Carbon Dioxide 30 mmol/L (22.0-30.0); Cholesterol 119 mg/dl (140-200); Globulin 2.6 g/dL (1.3-3.2); Glucose 153 mg/dl (74-100); Total Protein,Serum 6.9 g/dl (6.3-8.2); Triglycerides 208 mg/dl (30-150); VLDL Cholesterol 42 mg/dL (0-40)
[2023-02-20 18:00] LABS: Chol/HDL Ratio 2.6 (1-3.5); HDL Cholesterol 45 mg/dl (40-60)
[2023-02-20 18:10] LABS: Direct LDL Cholesterol 61.52 mg/dL (100-129)
[2023-02-20 19:40] LABS: Hemoglobin A1C 7.1 % (4.0-6.0)
== END ==
PROVIDERS: PCP Internal Medicine; Visit Provider Internal Medicine
DX: E11.9 Type 2 diabetes mellitus without complications (principal); I10 Essential (primary) hypertension; I87.2 Venous insufficiency (chronic) (peripheral); I50.32 Chronic diastolic (congestive) heart failure; N18.9 Chronic kidney disease, unspecified; N39.0 Urinary tract infection, site not specified; E78.5 Hyperlipidemia, unspecified; F03.90 Unspecified dementia, unspecified severity, without behavioral disturbance, psychotic disturbance, mood disturbance, and anxiety; Z79.84 Long term (current) use of oral hypoglycemic drugs; B96.4 Proteus (mirabilis) (morganii) as the cause of diseases classified elsewhere
CPT/HCPCS: 80053; 80061; 83036; 85025; 87086; 87088; 87186

== ENCOUNTER → 2023-04-07 17:09 | Outpatient (CLI) | payer MEDICARE, SELFPAY | PROVIDERS: PCP Internal Medicine; Visit Provider Internal Medicine | DX: N40.1 Benign prostatic hyperplasia with lower urinary tract symptoms (principal); N39.0 Urinary tract infection, site not specified; B96.20 Unspecified Escherichia coli [E. coli] as the cause of diseases classified elsewhere | CPT/HCPCS: 87086; 87088; 87186 ==

== ENCOUNTER → 2023-08-26 16:38 | Outpatient (CLI) | payer MEDICARE, SELFPAY | PROVIDERS: PCP Internal Medicine; Visit Provider Internal Medicine | DX: B96.1 Klebsiella pneumoniae [K. pneumoniae] as the cause of diseases classified elsewhere; N39.0 Urinary tract infection, site not specified | CPT/HCPCS: 87086 ==

== ENCOUNTER 2023-12-14 13:13 | Outpatient (CLI) | payer MEDICARE, SELFPAY ==
[2023-12-14 15:13] LABS: Creatinine,Urine Random 209 mg/dL (Not Estab.)
[2023-12-14 15:33] LABS: Alanine Aminotransferase 19 U/L (12-78); Albumin Level 4.1 g/dl (3.5-5.0); Albumin/Globulin Ratio 1.7 (1.1-1.8); Alkaline Phosphatase 90 U/L (38-126); Anion Gap 7.7 mEq/L (5-15); Aspartate Amino Transferase 20 U/L (17-59); Blood Urea Nitrogen 15 mg/dl (9-20); Calcium 9.2 mg/dl (8.4-10.2); Carbon Dioxide 32 mmol/L (22.0-30.0); Chloride 106 mmol/L (98-107); Chol/HDL Ratio 2.8 (1-3.5); Cholesterol 122 mg/dl (140-200); Estimated Glomerular Filt Rate 58 ml/min (>60); GFR (African American) 70 ML/MIN (>60); Globulin 2.4 g/dL (1.3-3.2); Glucose 133 mg/dl (74-100); HDL Cholesterol 43 mg/dl (40-60); Potassium 4.7 mmoL/L (3.5-5.1); Sodium 141 mmol/L (136-145); Total Protein,Serum 6.5 g/dl (6.3-8.2); Triglycerides 94 mg/dl (30-150); VLDL Cholesterol 19 mg/dL (0-40)
[2023-12-14 15:43] LABS: Direct LDL Cholesterol 57.06 mg/dL (100-129)
[2023-12-14 16:01] LABS: Prostate Specific Ag Screen 3.6 ng/ml (0.0-4.0)
[2023-12-14 16:26] LABS: Hemoglobin A1C 7.2 % (4.0-6.0)
== END 2023-12-14 23:59 ==
LOC: LAB.DROPOF 13:14
PROVIDERS: PCP Internal Medicine; Visit Provider Internal Medicine
DX: E11.9 Type 2 diabetes mellitus without complications (principal); I10 Essential (primary) hypertension; M17.0 Bilateral primary osteoarthritis of knee; N19 Unspecified kidney failure; I87.2 Venous insufficiency (chronic) (peripheral); G31.84 Mild cognitive impairment of uncertain or unknown etiology; Z12.5 Encounter for screening for malignant neoplasm of prostate; Z79.84 Long term (current) use of oral hypoglycemic drugs
CPT/HCPCS: 80053; 80061; 82043; 82570; 83036; G0103

== ENCOUNTER 2024-05-26 16:54 | Outpatient (CLI) | payer MEDICARE, SELFPAY | END 2024-05-26 23:59 | disposition home or self-care (01) | LOC: LAB.DROPOF 16:55 | PROVIDERS: PCP Internal Medicine; Visit Provider Internal Medicine | DX: J06.9 Acute upper respiratory infection, unspecified (principal) | CPT/HCPCS: 87635 ==

== ENCOUNTER 2024-09-14 14:14 | Outpatient (CLI) | payer MEDICARE, SELFPAY ==
[2024-09-14 12:52] LABS: Basophils % 0.2 % (0.1-2.0); Eosinophils # 0.3 K/mm3 (0.0-0.4); Eosinophils % 3.9 % (0.1-12.0); Hemoglobin 12.8 g/dL (14.1-18.0); Lymphocytes # 1.3 K/mm3 (0.7-4.5); Lymphocytes % 16.3 % (10-50); Mean Corpuscular HGB Conc 33.6 g/dL (31.8-35.4); Mean Corpuscular Hemoglobin 30.8 pg (27.0-31.2); Mean Corpuscular Volume 91.5 fl (80-94); Mean Platelet Volume 7.8 fl (7.4-10.4); Monocytes # 0.5 K/mm3 (0.1-1.0); Monocytes % 6.5 % (1.7-9.3); Neutrophils % 73.1 % (37.0-80.0); Platelet Count 214 K/mm3 (142-424); Red Blood Count 4.15 M/mm3 (4.60-6.20); Red Cell Distribution Width 14.2 % (11.5-17.5); White Blood Count 8.2 K/mm3 (4.8-10.8)
[2024-09-14 13:27] LABS: Hemoglobin A1C 6.9 % (4.0-6.0)
[2024-09-14 13:31] LABS: Alanine Aminotransferase 23 U/L (12-78); Albumin Level 4.4 g/dl (3.5-5.0); Albumin/Globulin Ratio 1.8 (1.1-1.8); Alkaline Phosphatase 103 U/L (38-126); Anion Gap 12.5 mEq/L (5-15); Aspartate Amino Transferase 21 U/L (17-59); Bilirubin,Total 0.8 mg/dl (0.2-1.3); Blood Urea Nitrogen 18 mg/dl (9-20); Calcium 9.5 mg/dl (8.4-10.2); Carbon Dioxide 27 mmol/L (22.0-30.0); Chloride 106 mmol/L (98-107); Chol/HDL Ratio 2.3 (1-3.5); Cholesterol 109 mg/dl (140-200); Estimated Glomerular Filt Rate 58 ml/min (>60); GFR (African American) 70 ML/MIN (>60); Globulin 2.4 g/dL (1.3-3.2); Glucose 127 mg/dl (74-100); HDL Cholesterol 47 mg/dl (40-60); Potassium 4.5 mmoL/L (3.5-5.1); Sodium 141 mmol/L (136-145); Total Protein,Serum 6.8 g/dl (6.3-8.2); Triglycerides 88 mg/dl (30-150); VLDL Cholesterol 18 mg/dL (0-40)
== END 2024-09-14 23:59 | disposition home or self-care (01) ==
LOC: LAB.DROPOF 14:15
PROVIDERS: PCP Internal Medicine; Visit Provider Internal Medicine
DX: E11.9 Type 2 diabetes mellitus without complications (principal); E78.5 Hyperlipidemia, unspecified; I10 Essential (primary) hypertension
CPT/HCPCS: 80053; 80061; 83036; 85025

== ENCOUNTER 2024-11-13 23:29 | Observation (INO) | payer MEDICARE, SELFPAY ==
[2024-11-13 23:41] VITALS: BP 198/108; PULSE 119; RESP 22; TEMP 36.8; O2SAT 92; BMI 30.4
--- NOTE | 2024-11-13 23:44 | CT_ITS ---
PROCEDURE INFORMATION: Exam: CT Abdomen And Pelvis With Contrast Exam date and time: 11/14/2024 12:33 AM Age: 83 years old Clinical indication: Injury or trauma; Fall; Blunt; Lower; Additional info: Fall low abd pain that has resolved TECHNIQUE: Imaging protocol: Computed tomography of the abdomen and pelvis with contrast. 3D rendering (Not supervised by radiologist): MIP and/or 3D reconstructed images were created by the technologist. Radiation optimization: All CT scans at this facility use at least one of these dose optimization techniques: automated exposure control; mA and/or kV adjustment per patient size (includes targeted exams where dose is matched to clinical indication); or iterative reconstruction. Contrast material: ISOVUE; Contrast volume: 70 ml; Contrast route: IV; COMPARISON: CT ABDOMEN WO/W CON 07/01/2021 9:18 AM FINDINGS: Liver: Normal. No mass. Gallbladder and biliary ducts: Cholecystectomy. Pancreas: Normal. No ductal dilation. Spleen: Normal. No splenomegaly. Adrenal glands: Normal. No mass. Kidneys and ureters: Normal. No hydronephrosis. Stomach and bowel: Diverticulosis of the large bowel. Appendix: No evidence of appendicitis. Intraperitoneal space: Unremarkable. No free air. No significant fluid collection. Vasculature: Unremarkable. No abdominal aortic aneurysm. Lymph nodes: Unremarkable. No enlarged lymph nodes. Urinary bladder: Unremarkable as visualized. Reproductive: Unremarkable as visualized. Bones/joints: Bilateral hip replacements. Remote left 11th rib fracture. Soft tissues: Unremarkable. IMPRESSION: No acute findings.
--- NOTE | 2024-11-13 23:44 | CT_ITS ---
PROCEDURE INFORMATION: Exam: CT Cervical Spine Without Contrast Exam date and time: 11/14/2024 12:31 AM Age: 83 years old Clinical indication: Injury or trauma; Fall; Blunt trauma TECHNIQUE: Imaging protocol: Computed tomography of the cervical spine without contrast. Radiation optimization: All CT scans at this facility use at least one of these dose optimization techniques: automated exposure control; mA and/or kV adjustment per patient size (includes targeted exams where dose is matched to clinical indication); or iterative reconstruction. COMPARISON: 1. CT HEAD/BRAIN WO CON 11/14/2024 12:18 AM 2. CR XR CHEST PORTABLE 10/03/2022 5:48 PM 3. CR XR CHEST 2V 04/03/2021 3:23 PM FINDINGS: Bones: There is exaggeration of the spinal curvature. There is diffuse osseous demineralization. The cervical spine shows relatively preserved alignment of the vertebral bodies with no evidence of acute fractures or dislocations. However, age-related degenerative changes are observed, including mild disc space narrowing and osteophyte formation at multiple levels. These findings are consistent with age related degenerative disease. Teeth: There is dental amalgam which causes streak artifact and mildly limits evaluation of the oral cavity. Lungs: There are scattered calcified granulomas in the lungs which most likely reflect prior granulomatous disease. Vasculature: There are atherosclerotic calcifications of the carotid bulbs bilaterally. Soft tissues: Unremarkable. Other findings: Motion artifact mildly limits evaluation. IMPRESSION: Multilevel degenerative change without acute injury identified.
--- NOTE | 2024-11-13 23:44 | CT_ITS ---
PROCEDURE INFORMATION: Exam: CT Head Without Contrast Exam date and time: 11/14/2024 12:18 AM Age: 83 years old Clinical indication: Injury or trauma; Fall; Blunt trauma (contusions or hematomas) TECHNIQUE: Imaging protocol: Computed tomography of the head without contrast. Radiation optimization: All CT scans at this facility use at least one of these dose optimization techniques: automated exposure control; mA and/or kV adjustment per patient size (includes targeted exams where dose is matched to clinical indication); or iterative reconstruction. COMPARISON: No relevant prior studies available. FINDINGS: Brain: The brain parenchyma appears unremarkable, with no signs of acute intracranial hemorrhage or significant mass effect. There is hypodensity in the subcortical and periventricular white matter which is technically nonspecific but most often related to chronic microvascular disease. Cerebral ventricles: Mild ventricular enlargement consistent with age-related cerebral atrophy is noted. Paranasal sinuses: Paranasal sinuses show age-appropriate mucosal thickening. Mastoid air cells: Visualized mastoid air cells are well aerated. Nasal cavity: There is rightward deviation of the bony nasal septum. Teeth: There is dental amalgam which causes streak artifact and mildly limits evaluation of the oral cavity. Bones: There are no skull fractures or bony lesions. Soft tissues: Unremarkable. IMPRESSION: Presumably age-related and chronic changes without acute intracranial abnormality.
--- NOTE | 2024-11-13 23:44 | CT_ITS ---
PROCEDURE INFORMATION: Exam: CTA Chest With Contrast Exam date and time: 11/14/2024 12:33 AM Age: 83 years old Clinical indication: Shortness of breath and other: Tachy; Additional info: SOA tachy TECHNIQUE: Imaging protocol: Computed tomographic angiography of the chest with contrast. Exam focused on the arteries. 3D rendering (Not supervised by radiologist): MIP and/or 3D reconstructed images were created by the technologist. Radiation optimization: All CT scans at this facility use at least one of these dose optimization techniques: automated exposure control; mA and/or kV adjustment per patient size (includes targeted exams where dose is matched to clinical indication); or iterative reconstruction. Contrast material: ISOUVE 370; Contrast volume: 70 ml; Contrast route: INTRAVENOUS (IV); COMPARISON: CR XR CHEST PORTABLE 10/03/2022 5:48 PM FINDINGS: Pulmonary arteries: Normal. No pulmonary emboli. Aorta: Unremarkable. No aortic aneurysm. No aortic dissection. 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 Cholecystectomy. Lungs: Unremarkable. No consolidation. No masses. Pleural spaces: Unremarkable. No pneumothorax. No pleural effusion. Heart: Unremarkable. No cardiomegaly. No pericardial effusion. Lymph nodes: Unremarkable. No enlarged lymph nodes. Bones/joints: Unremarkable. No acute fracture. Soft tissues: Unremarkable. IMPRESSION: No acute findings.
--- NOTE | 2024-11-13 23:44 | ECG_ITS ---
APPROVED REPORT Exam: Resting ECG HR:121 bpm ECG Measurements Heart Rate 121 AXES CO 181 P 40 QRSd 90 QRS -9 QT 416 T 44 QTc 488 Conclusion SINUS TACHYCARDIA VOLTAGE CRITERIA FOR LVH [MEETS CRITERIA IN ONE OF: R(aVL), S(V1), R(V5), R(V5/V6)+S(V1)] NONSPECIFIC ST & T-WAVE ABNORMALITY No STEMI Electronically signed by : BRIANNA KUO, 11/14/2024 07:00:53
--- NOTE | 2024-11-13 23:49 | HMH.EDGENADL ---
Discharge Plan Disposition Patient Disposition: Admitted Condition: Serious Prescriptions Prescriptions: No Action lisinopril 5 mg tablet 5 mg PO DAILY methylprednisolone 4 mg tablets,dose pack See Rx Instructions PO PER PKG DIR Qty: 21 0RF Rx Instructions: PO PER PKG DIR azithromycin 250 mg tablet See Rx Instructions PO .COMPLEX Qty: 6 0RF Rx Instructions: For 250 mg dose pack: take 500 mg today (day 1), then 250 mg for 4 days (days 2-5) PO prednisone 5 mg tablet 5 mg PO DIRECTED Qty: 32 0RF Rx Instructions: 4 p.o. every morning x 5 days, then 3 p.o. every morning x 2 days, 2 p.o. every morning x 2 days, 1 p.o. every morning x 2 days, then stop. albuterol sulfate 90 mcg/actuation HFA aerosol inhaler 2 puff inhalation Q6H PRN (Reason: shortness of breath or wheezing) Qty: 8.5 2RF furosemide 20 mg tablet See Rx Instructions .ROUTE .COMPLEX Qty: 45 2RF Dose Instruction: TAKE 1 TABLET BY MOUTH EVERY OTHER DAY WITH POTASSIUM PILL Rx Instructions: TAKE 1 TABLET BY MOUTH EVERY OTHER DAY WITH POTASSIUM PILL omeprazole 20 mg capsule,delayed release(DR/EC) 20 mg PO HS Qty: 90 1RF memantine 5 mg tablet 5 mg PO DAILY Qty: 90 1RF potassium chloride 10 mEq tablet,ER particles/crystals See Rx Instructions .ROUTE .COMPLEX Qty: 90 1RF Dose Instruction: TAKE 1 TABLET BY MOUTH ONCE DAILY Rx Instructions: TAKE 1 TABLET BY MOUTH ONCE DAILY losartan 50 mg tablet See Rx Instructions .ROUTE .COMPLEX Qty: 90 1RF Dose Instruction: TAKE 1 TABLET BY MOUTH ONCE DAILY FOR BLOOD PRESSURE Rx Instructions: TAKE 1 TABLET BY MOUTH ONCE DAILY FOR BLOOD PRESSURE atorvastatin 10 mg tablet See Rx Instructions .ROUTE .COMPLEX Qty: 90 1RF Dose Instruction: TAKE 1 TABLET BY MOUTH ONCE DAILY Rx Instructions: TAKE 1 TABLET BY MOUTH ONCE DAILY metformin 500 mg tablet See Rx Instructions .ROUTE .COMPLEX Qty: 180 1RF Dose Instruction: TAKE 1 TABLET BY MOUTH TWICE DAILY Rx Instructions: TAKE 1 TABLET BY MOUTH TWICE DAILY diltiazem HCl 240 mg capsule,extended release 24hr See Rx Instructions .ROUTE .COMPLEX Qty: 90 1RF Dose Instruction: TAKE 1 CAPSULE BY MOUTH ONCE DAILY FOR BLOOD PRESSURE Rx Instructions: TAKE 1 CAPSULE BY MOUTH ONCE DAILY FOR BLOOD PRESSURE multivitamin 1 EACH tablet 1 each PO DAILY aspirin 81 MG tablet,delayed release (DR/EC) 81 mg PO DAILY multivitamin,[id number]-[id number] Tablet 1 tab PO DAILY Rx Instructions: takes 1000IU of vit d3 daily, 500mg of vit c daily Referrals Follow up/Referrals: Higinio Limon MD [Primary Care Provider] - See instructions Clinical Impressions Clinical Impression: Acute hypoxic respiratory failure, Weakness, Hypertension, CHF exacerbation, Fall Print Language Print Language: Upper Sorbian Discharge ED Provider: Gerald Lopez General Adult HPI General Chief complaint: Weakness Stated complaint: AO 1430 fall right side pain, SOA Time Seen by Provider: 11/13/24 23:30 Mode of Arrival: Wheelchair Source of Information: Patient and Significant Other Limitations: No Limitations Description of Symptoms (Recalled from ER Triage Doc. by RN): pt had a fall at home at 2:30 pm today where he lost his balance. pt is having increased shortness of breath and BLE edema. pt denies hitting his head or any LOC. History of Present Illness HPI narrative: 83-year-old male with history of asthma, type 2 diabetes on metformin, hypertension, hyperlipidemia presents to the ER with multiple complaints. He presents with family he reports he had a fall at home today around 2:30 PM. Patient reports he was holding onto the table when he reached down for something off the floor and lost his balance. He did not strike his head or lose consciousness, does not take any blood thinners. Family reports he has been more weak today than normal. Reportedly he was able to ambulate into congregational with just a cane, but now he is requiring multiple person assist to get in and out of a wheelchair. Unable to ambulate at this time secondary to weakness. reports patient has recurrent urinary tract infections, he has not been on antibiotics in multiple months. Reportedly before they had a viral upper respiratory infection and patient received steroids at that time but seem to have recovered well. They note that he has had increased leg swelling despite taking 20 mg furosemide daily. Patient has not had any cough or fevers at home. He denies any chest pain. Family reports they have heard wheezing and can tell he is having difficulty breathing. Reportedly initially after the fall patient complained of pain in his bilateral low abdomen but that has resolved many hours ago and he no longer has pain. He is able to bear weight on both lower extremities. He has no numbness, tingling, or localizing weakness. No vision changes. Family reports patient took albuterol prior to arrival. He has no history of MA or blood clot. Patient denies having any pain at this time. Family reports patient is not always honest about his complaints but they do not believe he is in any pain. Related Data Home Medications ?Medication ?Instructions ?Recorded ?Confirmed aspirin 81 mg tablet,delayed 81 mg PO DAILY CAD 03/28/21 09/29/24 release multivitamin 1 each PO DAILY Diet supplement 03/28/21 09/29/24 multivitamin,[id number] 1 tab PO DAILY Supplement 10/03/22 09/29/24 lisinopril 5 mg tablet 5 mg PO DAILY 05/26/24 09/29/24 Previous Rx's ?Medication ?Instructions ?Recorded methylprednisolone 4 mg tablets in See Rx Instructions PO PER PKG DIR 05/26/24 a dose pack #21 tabs furosemide 20 mg tablet See Rx Instructions .Route 05/30/24 .COMPLEX #45 tabs omeprazole 20 mg capsule,delayed 20 mg PO HS acid reflux #90 caps 08/03/24 release albuterol sulfate 90 mcg/actuation 2 puff inhalation Q6H PRN 09/29/24 aerosol inhaler shortness of breath or wheezing #8.5 grams azithromycin 250 mg tablet See Rx Instructions PO .COMPLEX #6 09/29/24 tabs prednisone 5 mg tablet 5 mg PO DIRECTED #32 tabs 09/29/24 memantine 5 mg tablet 5 mg PO DAILY #90 tabs 10/13/24 atorvastatin 10 mg tablet See Rx Instructions .Route 10/18/24 .COMPLEX #90 ea diltiazem HCl 240 mg See Rx Instructions .Route 10/18/24 capsule,extended release 24 hr .COMPLEX #90 caps losartan 50 mg tablet See Rx Instructions .Route 10/18/24 .COMPLEX #90 tabs metformin 500 mg tablet See Rx Instructions .Route 10/18/24 .COMPLEX #180 tabs potassium chloride 10 mEq See Rx Instructions .Route 10/18/24 tablet,extended release(part/cryst) .COMPLEX #90 tabs Allergies Allergy/AdvReac Type Severity Reaction Status Date / Time No Known Drug Allergies (NO Allergy Unknown Verified 09/29/24 16:14 KNOWN DRUG ALLERGIES) [facility] Disclaimer: The information contained in this section may have been updated after the patient was seen, as this information can be updated by other users. Medical History Cataract History of recurrent UTI (urinary tract infection) Hyperlipidemia Hypertension Diabetes Surgical History History of cholecystectomy History of hip surgery Family History Other No significant family history Social History Smoking Status: Never smoker alcohol intake: never substance use type: denies use current occupational status: retired Travel in the last 8 weeks: None education level: college caffeine: Yes Have you lived/traveled outside [place] in past 30 days?: No Contact w/someone who lives/traveled outside US past 30 days?: No Exposure to someone with infectious disease in past 14 days?: No Do you have a fever (greater than 100.4 F or 38 C)?: No Have you tested positive for COVID-19: No Exposed to someone with COVID-19 in past 14 days?: No Do you have a sore throat?: No Do you have a cough?: No Do you have any weakness?: No Do you have any diarrhea?: No Are you experiencing any unusual bleeding?: No Do you have any muscle aches/pain?: No Do you have any abdominal pain?: No Are you experiencing loss of taste or smell?: No Other Medical History Have you received the Flu Vaccine for this season: No Have you received the Pneumonia Vaccine: No ROS Obtained: Yes Systems reviewed as appropriate & no additional complaints except as documented per HPI Physical Exam General General appearance: alert Comment: Tachypneic and in respiratory distress but alert and oriented Head Head exam: atraumatic and normocephalic Eye Eye exam: Present PERRL and EOMI ENT ENT exam: Present mucous membranes moist Neck Neck exam: Present normal inspection and full ROM; Absent tenderness or lymphadenopathy Chest Chest inspection: Present symmetric chest wall rise; Absent tenderness Respiratory Respiratory exam: Present respiratory distress (Tachypneic, tachycardic, respiratory rate in the mid to upper 30s with prolonged expiratory phase and accessory muscle use as well as diffuse wheezing) and wheezes; Absent stridor Cardiovascular Cardiovascular exam: Present normal rhythm and tachycardia Abdominal Exam Abdominal exam: Present soft; Absent distention, tenderness, guarding or rebound Extremities Exam Extremities exam: Present full ROM and edema (+2 to +3 pitting edema in the bilateral lower extremities) Back Exam Back exam: Present full ROM; Absent tenderness Neurological Exam Neurological exam: Present alert and oriented X3; Absent motor sensory deficit Psychiatric Psychiatric exam: Present normal affect and normal mood Skin Skin exam: Present warm and dry Medical Decision Making Medical Records Medical records reviewed: Yes I reviewed the patient's medical records. Screening: Per USPSTF and CDC recommendations, given the prevalence of disease in our region, it is our hospital?s policy to screen for HIV and viral Hepatitis for all patients aged 18 and over and those with ongoing risk factors. MR Comment: Discharge summary from Dr. Chambers on 10/04/2022 demonstrates patient had a brief admission for cough, fever, DIXON, generalized weakness. He was diagnosed with functional decline and COVID. No new medications were prescribed to the patient at the time of discharge. [place] Inquiry Pt receiving controlled substance: No Vital Signs: 11/13/24 23:41 11/14/24 00:25 Temperature 98.2 F Temperature Source Oral Pulse Rate 105 H Pulse Rate [Right] 119 H Respiratory Rate 22 Blood Pressure [Right Arm] 198/108 H Blood Pressure Mean [Right Arm] 138 02 Sat by Pulse Oximetry 92 L Oxygen Delivery Method Room Air Lab Data Lab Results 11/13/24 23:38: WBC 13.9 H, RBC 4.04 L, Hgb 11.7 L, Hct 35.9 L, MCV 88.9, MCH 29.0, MCHC 32.6, RDW 13.7, Plt Count 186, MPV 10.2, Neut % (Auto) 84.6 H, Lymph % (Auto) 7.2 L, Coffee % (Auto) 6.1, Eos % (Auto) 1.4, Baso % (Auto) 0.1, Neut # (Auto) 11.7 H, Lymph # (Auto) 1.0, Coffee # (Auto) 0.9, Eos # (Auto) 0.2, Baso # (Auto) 0.0, PT 10.6, INR 0.96, Sodium 140, Potassium 4.3, Chloride 105, Carbon Dioxide 24, Anion Gap 15.3 H, BUN 23 H, Creatinine 1.10, Estimated Creat Clear 68, Estimated GFR 64, Est GFR ( Amer) 77, Glucose 226 H, Calcium 9.2, Magnesium 1.8, Total Bilirubin 0.9, AST 42, ALT 40, Alkaline Phosphatase 83, Troponin I 0.01, NT-Pro-B Natriuret Pep 549 H, Total Protein 7.3, Albumin 4.4, Globulin 2.9, Albumin/Globulin Ratio 1.5, HCV Ab OCTAVIO w/Rflx PCR Qn Negative, HIV Ag/Ab Combo Qual Negative 11/13/24 23:44: VBG pH 7.39, VBG pCO2 40.4, VBG pO2 45.5 H, VBG HCO3 24.0, VBG Total CO2 25.2, VBG O2 Saturation 80.3 H, VBG Base Excess -1.0, VBG Lactic Acid 2.0 11/14/24 00:19: Urine Color Yellow, Urine Appearance Clear, Urine pH 6.0, Ur Specific [place] 1.015, Urine Protein Negative, Urine Glucose (UA) Trace, Urine Ketones Negative, Urine Blood Negative, Urine Nitrate Negative, Urine Bilirubin Negative, Urine Urobilinogen 0.2, Ur Leukocyte Esterase Negative, Urine RBC None, Urine WBC None, Ur Squamous Epith Cells Occasional, Urine Bacteria None 11/13/24 23:38 11/13/24 23:38 Orders (Tests/Meds): ED MEDICATIONS Generic Name Dose Route Start Last Admin Trade Name Freq PRN Reason Stop Dose Admin Vancomycin HCl 2,000 mg/ 250 mls @ 125 mls/hr 11/14/24 00:00 11/14/24 00:44 Sodium Chloride IV 11/14/24 01:59 125 mls/hr ONCE ONE Administration Lactated Ringer's 500 mls @ 999 mls/hr 11/14/24 01:10 11/14/24 01:16 Lactated Ringer's 500ml IV 11/14/24 01:40 999 mls/hr .Q31M ONE Administration Miscellaneous 1 each 11/13/24 23:45 11/14/24 00:47 Vancomycin Consult Request NOTAPPLIC 12/13/24 23:44 1 each [facility] Administration Sodium Chloride 10 ml 11/14/24 00:58 11/14/24 00:59 Sodium Chloride 0.9% 10ml Syr (Rad Only) IV 02/26/25 00:57 10 ml NEEDED PRN Administration Maintain IV Site Discontinued Medications Generic Name Dose Route Start Last Admin Trade Name Alyse PRN Reason Stop Dose Admin Albuterol/Ipratropium 9 ml 11/13/24 23:46 11/14/24 00:23 Ipratropium/Albuterol 3 Ml Neb IH 11/13/24 23:47 9 ml ONCE ONE Administration Furosemide 40 mg 11/13/24 23:49 11/13/24 23:55 Furosemide 40mg/4ml Vial IV 11/13/24 23:50 40 mg ONCE ONE Administration Piperacillin Sod/Tazobactam 100 mls @ 200 mls/hr 11/13/24 23:50 11/13/24 23:56 Sod 4.5 gm/ Sodium Chloride IV 11/14/24 00:19 200 mls/hr ONCE ONE Administration Iopamidol 70 ml 11/14/24 00:58 11/14/24 00:59 Iopamidol-370 (76%);100ml Bottle IV 11/14/24 00:59 70 ml ONCE ONE Administration Methylprednisolone Sodium Succinate 125 mg 11/13/24 23:46 11/13/24 23:55 Methylprednisolone Sod Succ 125mg Vial IV 11/13/24 23:47 125 mg ONCE ONE Administration Nitroglycerin 0.4 mg 11/13/24 23:46 11/14/24 00:17 Nitroglycerin 0.4mg Sl Tablet SL 11/13/24 23:47 0.4 mg ONCE ONE Administration Sodium Chloride 40 ml 11/14/24 00:58 11/14/24 00:59 0.9 % Sodium Chloride 50 Ml Vial IV 11/14/24 00:59 40 ml ONCE ONE Administration ORDERS Category Date Time Status CT abdomen pelvis w con Stat Cat Scan 11/13/24 23:[address] angio chest PE protocol Stat Cat Scan 11/13/24 23:[address] cervical spine wo con Stat Cat Scan 11/13/24 23:[address] head/brain wo con Stat Cat Scan 11/13/24 23:44 Completed Complete Blood Count Auto Diff Stat Lab 11/13/24 23:38 Completed Comprehensive Metabolic Panel Stat Lab 11/13/24 23:38 Completed Full Resp Panel w/COVID ([facility]) Routine Lab 11/13/24 23:55 Received HIV Combo Stat Lab 11/13/24 23:38 Completed Hepatitis C Ab Qual. W/ RFX Stat Lab 11/13/24 23:38 Completed Magnesium Stat Lab 11/13/24 23:38 Completed NT Pro Brain Natriuretic Pep. Stat Lab 11/13/24 23:38 Completed Prothrombin Time INR Stat Lab 11/13/24 23:38 Completed Troponin I Q3H Lab 11/14/24 02:45 Ordered Troponin I Q3H Lab 11/14/24 05:45 Ordered Troponin I Stat Lab 11/13/24 23:38 Completed Urinalysis and Microscopic Stat Lab 11/14/24 00:19 Completed Blood Culture Stat Micro 11/14/24 00:09 Received Venous Blood Gas Stat RT 11/13/24 23:44 Completed Medical Decision Narrative: In summary, this 83-year-old male with comorbidities described in the HPI which increase the amount of data to be reviewed as well as his overall morbidity presents to the emergency department today with respiratory distress, generalized weakness, fall earlier today without obvious traumatic injury according to family. On initial evaluation patient is tachycardic, hypertensive, tachypneic, in obvious respiratory distress with diminished breath sounds and wheezing as well as accessory muscle use. [id number] ultrasound performed at bedside demonstrates few B-lines, questionable small consolidation at the bilateral lung bases, diminished left heart squeeze but no local wall dysfunction. Differential diagnosis includes but is not limited to ACS, PE, pneumothorax, asthma exacerbation, hypercarbia, fluid overload, CHF, kidney dysfunction, electrolyte abnormality, viral syndrome, pneumonia, lactic acidosis, patient had complained initially after his fall of low abdominal pain so I considered the possibility of intra-abdominal injury, UTI, also consider possibility of intracranial bleed, skull fracture, cervical spine injury given patient's age though he does not have any neurologic deficits. Patient was ill-appearing on arrival so I immediately ordered DuoNebs, Lasix, Solu-Medrol, I also had concerns for him meeting sepsis criteria so he received broad-spectrum antibiotics. She did not receive a sepsis bolus since he was hypertensive and showing signs of fluid overload clinically. He received sublingual nitro for blood pressure management initially as well. Based on these concerns, I ordered broad workup including serum labs, cardiac workup, CT imaging of the head, neck, chest, abdomen, pelvis, urine studies, blood cultures. ECG personally interpreted demonstrates sinus tachycardia, rate 121, normal axis, normal [place] and QTc, no STEMI. Patient's respiratory rate improved after receiving the DuoNebs initially. With his work of breathing he was placed on positive pressure ventilation. VBG demonstrates pH normal at 7.39 without hypercarbia, lactic on VBG normal at 1.96, patient is hyperglycemic. The positive pressure ventilation is primarily for work of breathing to hopefully avoid intubation. Labs personally reviewed demonstrate leukocytosis with WBC 13.9 concerning for infection especially with neutrophil predominance, patient also has mild anemia with hemoglobin 11.7 down from 12.8 in August 2024. Nonactionable at this time. Platelets normal at 186, PT/INR normal, CMP with mild prerenal azotemia, I believe he is intravascularly depleted despite the evidence of fluid overload clinically so he will receive 500 mL IV fluids. Initial troponin 0.01, BNP elevated at 549, UA negative for findings of infection. CT head and cervical spine were personally interpreted and I do not appreciate acute traumatic injury, patient has degenerative changes of the C-spine. See radiology reads for final interpretation. CTA chest as well as CT abdomen pelvis were personally interpreted and I do not appreciate acute traumatic injury, no dissection or PE, no obvious pneumonia or acute intra-abdominal pathology. See radiology reads for full interpretations. After CT patient was mildly hypoxic 87 to 88% on room air while awake. He was placed back on NIPPV and his respiratory rate improved from the mid 20s to 18-20, saturating 97%. He is breathing much more comfortably. His blood pressure is also significantly improved compared to prior. He has not received anything more than the initial sublingual nitro for this but blood pressure was down to the 160s after CT. He was significantly more comfortable. Patient will require admission for continued management of respiratory distress, wheezing, fluid overload, CHF, sepsis. He is appropriate for admission to our facility. Family is comfortable with this plan and patient is in agreement. I discussed this case with the hospitalist who graciously accepted the patient for admission. Procedures Miscellaneous Procedure Procedure Performed: Limited lung ultrasound A focused ultrasound exam of the pleural spaces was performed to evaluate for pneumothorax, pulmonary edema, pleural effusion and/or consolidation. The ultrasound was performed with the following indications, as noted in the H&P: Dyspnea Identified structures: Bilateral thoracic cavities were examined. Findings: Lung sliding: -Present bilaterally B-lines: Trace present bilaterally Pleural effusion: -Absent Consolidation: small area of consolidation at bilateral lung bases Impression: - Pneumothorax absent bilaterally - Pleural effusion absent bilaterally - B-lines trace bilaterally - Consolidation trace at the lung bases bilaterally Images were saved to permanent archive The study was technically adequate CPT 66696-58 This study was performed by or, and I personally interpreted all images/videos. Based on my clinical judgement, these images were adequate and did not necessitate further imaging. Limited Cardiac Ultrasound Indication: Shortness of breath Identified cardiac views: [-Cardiac parasternal long axis] [-Cardiac parasternal short axis] [-Cardiac apical four-chamber] Findings: Cardiac activity present, no pericardial effusion, no right heart strain, patient has mild global left ventricular dysfunction but no focal wall motion abnormality Impression: -Cardiac activity present, no pericardial effusion, no right heart strain, patient has mild global left ventricular dysfunction but no focal wall motion abnormality Images were saved to permanent archive The study was technically adequate CPT: 13983 This study was performed by or, and I personally interpreted all images/videos. Based on my clinical judgement, these images were adequate and did not necessitate further imaging. Critical Care Critical Care Time Critical Care Time: Yes Attestation: On 11/13/24, the high probability of a clinically significant, sudden or life threatening deterioration of the following system(s) required my full and direct attention, intervention and personal management. The time I documented below is in addition to time spent performing reported procedures but includes the following listed in this critical care notation. Total Time Total Critical Care Time: 35
[2024-11-13] MEDS: METHYLPREDNISOLONE SOD SUCC 125MG VIAL 125 MG IV (23:55)
[2024-11-13] MEDS: FUROSEMIDE 40MG/4ML VIAL 40 MG IV (23:55)
[2024-11-13 23:56] LABS: VBG Oxygen Saturation 80.3 % (50-70); VBG PCO2 40.4 mmol/L (35-51); VBG PH 7.39 mmol/L (7.31-7.41); VBG PO2 45.5 mmol/L (28-40); VBG Total CO2 25.2 mmol/L (23-27)
[2024-11-13 23:56] LABS: Basophils % 0.1 % (0.1-2.0); Eosinophils # 0.2 K/mm3 (0.0-0.4); Eosinophils % 1.4 % (0.1-12.0); Hematocrit 35.9 % (42.0-52.0); Hemoglobin 11.7 g/dL (14.1-18.0); Lymphocytes % 7.2 % (10-50); Mean Corpuscular HGB Conc 32.6 g/dL (31.8-35.4); Mean Corpuscular Volume 88.9 fl (80-94); Mean Platelet Volume 10.2 fl (7.4-10.4); Monocytes # 0.9 K/mm3 (0.1-1.0); Monocytes % 6.1 % (1.7-9.3); Neutrophils # 11.7 K/mm3 (1.8-7.8); Neutrophils % 84.6 % (37.0-80.0); Platelet Count 186 K/mm3 (142-424); Red Blood Count 4.04 M/mm3 (4.60-6.20); Red Cell Distribution Width 13.7 % (11.5-17.5); White Blood Count 13.9 K/mm3 (4.8-10.8)
[2024-11-13 23:56] LABS: Adenovirus,PCR Not Detected (NotDetected); Bordetella Pertussis Not Detected (NotDetected); Chlamydophila Pneumoniae, PCR Not Detected (NotDetected); Coronavirus 19, PCR Not Detected (NotDetected); Coronavirus 229E Not Detected (NotDetected); Coronavirus NL63 Not Detected (NotDetected); Coronavirus OC43 Not Detected (NotDetected); Coronovirus HKU1,PCR Not Detected (NotDetected); Human Metapneumovirus Not Detected (NotDetected); Influenza A, PCR Not Detected (NotDetected); Influenza AH1, 2009 Not Detected (NotDetected); Influenza AH1, PCR Not Detected (NotDetected); Influenza AH3,PCR Not Detected (NotDetected); Influenza B, PCR Not Detected (NotDetected); Mycoplasma Pneumoniae, PCR Not Detected (NotDetected); Parainfluenza 1, PCR Not Detected (NotDetected); Parainfluenza 2, PCR Not Detected (NotDetected); Parainfluenza 3, PCR Not Detected (NotDetected); Parainfluenza 4, PCR Not Detected (NotDetected); Respiratory Syncytial Virus Not Detected (NotDetected); Rhinovirus/Enterovirus Not Detected (NotDetected)
[2024-11-13] MEDS: PIPERACILLIN/TAZO 4.5 GM in 0.9 % SODIUM CHLORIDE 100 ML IV (23:56)
[2024-11-14] VITALS (16 sets, daily range): BP systolic 126–185; BP diastolic 66–97; PULSE 69–105; RESP 13–24; TEMP 36.4–37.2; O2SAT 92–98; BMI 30.5
[2024-11-14 00:03] LABS: Albumin Level 4.4 g/dl (3.5-5.0); Chloride 105 mmol/L (98-107); Potassium 4.3 mmoL/L (3.5-5.1); Sodium 140 mmol/L (136-145)
[2024-11-14 00:06] LABS: Alanine Aminotransferase 40 U/L (12-78); Albumin/Globulin Ratio 1.5 (1.1-1.8); Alkaline Phosphatase 83 U/L (38-126); Anion Gap 15.3 mEq/L (5-15); Aspartate Amino Transferase 42 U/L (17-59); Bilirubin,Total 0.9 mg/dl (0.2-1.3); Blood Urea Nitrogen 23 mg/dl (9-20); Carbon Dioxide 24 mmol/L (22.0-30.0); Creatinine Clearance Estimated 68 mL/min (50-200); Estimated Glomerular Filt Rate 64 ml/min (>60); GFR (African American) 77 ML/MIN (>60); Globulin 2.9 g/dL (1.3-3.2); INR 0.96 (0.9-1.1); Magnesium 1.8 mg/dl (1.6-2.3); Prothrombin Time 10.6 seconds (9.2-12.1); Total Protein,Serum 7.3 g/dl (6.3-8.2)
[2024-11-14 00:07] LABS: Calcium 9.2 mg/dl (8.4-10.2); Glucose 226 mg/dl (74-100)
[2024-11-14 00:16] LABS: NT Pro Brain Natriuretic Pep. 549 pg/mL (0-450)
[2024-11-14] MEDS: NITROGLYCERIN 0.4MG SL TABLET 0.4 MG SL (00:17)
[2024-11-14 00:19] LABS: Troponin I 0.01 ng/ml (0.00-0.034)
[2024-11-14] MEDS: IPRATROPIUM/ALBUTEROL 3 ML NEB 9 ML IH (00:23)
[2024-11-14 00:24] LABS: Appearance,Urine CLEAR (Clear); Bilirubin,Urine Negative (Negative); Blood, Urine Negative (Negative); Color,Urine YELLOW (Yellow); Glucose,Urine (UA) TRACE (Negative); Ketones,Urine Negative (Negative); Leukocyte Esterase,Urine Negative (Negative); Microscopic, Urine URINE MICROSCOPIC (MICROSCOPIC); Nitrate,Urine Negative (Negative); Protein,Urine Negative (Negative); Specific Gravity, Urine 1.015 (1.005-1.030); Urobilinogen,Urine 0.2 EU/dl (0.2)
[2024-11-14 00:40] LABS: Squamous Epithelial Cell,Urine Occasional #/hpf (0-5)
[2024-11-14] MEDS: VANCOMYCIN HCL 2,000 MG in 0.9 % SODIUM CHLORIDE 250 ML 125 MG IV (00:44)
[2024-11-14] MEDS: VANCOMYCIN CONSULT REQUEST 1 EACH NOTAPPLIC (00:47)
[2024-11-14 00:56] LABS: HIV Combo NEGATIVE (Negative)
[2024-11-14] MEDS: 0.9 % SODIUM CHLORIDE 50 ML VIAL 40 ML IV (00:59)
[2024-11-14] MEDS: IOPAMIDOL-370 (76%);100ML BOTTLE 70 ML IV (00:59)
[2024-11-14] MEDS: SODIUM CHLORIDE 0.9% 10ML SYR (RAD ONLY) 10 ML IV (00:59)
[2024-11-14 01:04] LABS: Hepatitis C Ab Qual. W/ RFX NEGATIVE (Negative)
[2024-11-14] MEDS: RINGERS SOLUTION,LACTATED 500 ML 999 ML IV (01:16)
--- NOTE | 2024-11-14 01:55 | PC.NURSE ---
attempted to call report, nurse unavailable
--- NOTE | 2024-11-14 02:13 | P.HP_ITS ---
History of Present Illness *Admission Date: 11/14/24 *Reason for visit:: Respiratory distress, generalized weakness, fall *History of present illness: The patient is an 83-year-old male with a medical history significant for asthma, type 2 diabetes mellitus on metformin, hypertension, and hyperlipidemia, who presents to the emergency department with multiple complaints including respiratory distress, generalized weakness, and a fall earlier today. According to the patient and his family, he fell at home around 2:30 PM while reaching for something off the floor while holding onto a table. He denies striking his head, losing consciousness, or experiencing any chest pain. He is not on blood thinners and denies any recent fevers, cough, or trauma-related symptoms. Initially after the fall, he complained of bilateral lower abdominal pain, which has since resolved. The family notes that he has been weaker than usual today, requiring multiple- person assistance to transfer in and out of a wheelchair, whereas he was able to ambulate independently with a cane into [facility] earlier. Additionally, he has had increased leg swelling despite taking 20 mg of furosemide daily and episodes of audible wheezing with visible difficulty breathing. The patient took albuterol prior to arrival, which provided minimal improvement. He denies vision changes, numbness, tingling, or focal weakness. The family states that he has a history of recurrent urinary tract infections but has not been treated with antibiotics in months. He also recently recovered from a viral upper respiratory infection in September, during which he received steroids. On arrival, the patient was ill-appearing, tachycardic, hypertensive, tachypneic, and in obvious respiratory distress with accessory muscle use, diminished breath sounds, and wheezing. His oxygen saturation improved with positive pressure ventilation (NIPPV). Initial labs revealed leukocytosis with a neutrophilic shift (WBC 13.9), mild anemia (Hgb 11.7), hyperglycemia (glucose 226, A1c 8.3), mild prerenal azotemia (BUN 23, creatinine 1.1), and an elevated BNP (549). Imaging ruled out acute traumatic injury, pulmonary embolism, and pneumonia but showed evidence of mild fluid overload. Urinalysis was unremarkable for infection. Expanded respiratory panel was negative with flu A and B still pending result. The patient received DuoNebs, Solu-Medrol, sublingual nitroglycerin, furosemide, and broad-spectrum antibiotics. His work of breathing has decreased and he has been moved to 3 L nasal cannula and is now more comfortable with improved oxygenation and hemodynamic stability. The patient will be admitted for further management of respiratory distress, fluid overload, and possible PFSH PFSH Disclaimer: The information contained in this section may have been updated after the patient was seen, as this information can be updated by other users. Medical History Cataract History of recurrent UTI (urinary tract infection) Hyperlipidemia Hypertension Diabetes Surgical History History of cholecystectomy History of hip surgery Family History Other No significant family history Social History Smoking Status: Never smoker alcohol intake: never substance use type: denies use current occupational status: retired Travel in the last 8 weeks: None education level: college caffeine: Yes Have you lived/traveled outside [place] in past 30 days?: No Contact w/someone who lives/traveled outside US past 30 days?: No Exposure to someone with infectious disease in past 14 days?: No Do you have a fever (greater than 100.4 F or 38 C)?: No Have you tested positive for COVID-19: No Exposed to someone with COVID-19 in past 14 days?: No Do you have a sore throat?: No Do you have a cough?: No Do you have any weakness?: No Do you have any diarrhea?: No Are you experiencing any unusual bleeding?: No Do you have any muscle aches/pain?: No Do you have any abdominal pain?: No Are you experiencing loss of taste or smell?: No Other Medical History Have you received the Flu Vaccine for this season: No Have you received the Pneumonia Vaccine: No Review of Systems Review of Systems Review of systems (narrative): 14 point review of systems negative outside HPI Meds Home Medications and Allergies Home Medications ?Medication ?Instructions ?Recorded ?Confirmed ?Type aspirin 81 mg tablet,delayed 81 mg PO DAILY 03/28/21 11/14/24 History release multivitamin 1 each PO DAILY 03/28/21 11/14/24 History memantine 5 mg tablet 5 mg PO DAILY #90 tabs 10/13/24 11/14/24 Rx albuterol sulfate 90 mcg/actuation 2 puff inhalation Q6HP PRN 11/14/24 11/14/24 History aerosol inhaler shortness of breath or wheezing atorvastatin 10 mg tablet 10 mg PO HS 11/14/24 11/14/24 History diltiazem HCl 240 mg 240 mg PO DAILY 11/14/24 11/14/24 History capsule,extended release 24 hr furosemide 20 mg tablet 20 mg PO Q48H 11/14/24 11/14/24 History losartan 50 mg tablet 50 mg PO DAILY 11/14/24 11/14/24 History metformin 500 mg tablet 500 mg PO BID 11/14/24 11/14/24 History omeprazole 20 mg capsule,delayed 20 mg PO HS 11/14/24 11/14/24 History release potassium chloride 10 mEq 10 meq PO DAILY 11/14/24 11/14/24 History tablet,extended release(part/cryst) New Prescriptions to Start Prescriptions: Allergies Allergy/AdvReac Type Severity Reaction Status Date / Time No Known Drug Allergies (NO Allergy Unknown Verified 09/29/24 16:14 KNOWN DRUG ALLERGIES) Exam Data for Last 24 hours Vital signs and Labs for Last 24 Hours: Temp Pulse Resp BP Pulse Ox O2 Del Method 98.2 F 105 H 22 198/108 H 92 L Room Air 11/13/24 23:41 11/14/24 00:25 11/13/24 23:41 11/13/24 23:41 11/13/24 23:41 11/13/24 23:41 Laboratory Results - last 24 hr 11/13/24 23:38: WBC 13.9 H, RBC 4.04 L, Hgb 11.7 L, Hct 35.9 L, MCV 88.9, MCH 29.0, MCHC 32.6, RDW 13.7, Plt Count 186, MPV 10.2, Neut % (Auto) 84.6 H, Lymph % (Auto) 7.2 L, Blanco % (Auto) 6.1, Eos % (Auto) 1.4, Baso % (Auto) 0.1, Neut # (Auto) 11.7 H, Lymph # (Auto) 1.0, [place] # (Auto) 0.9, Eos # (Auto) 0.2, Baso # (Auto) 0.0, PT 10.6, INR 0.96, Sodium 140, Potassium 4.3, Chloride 105, Carbon Dioxide 24, Anion Gap 15.3 H, BUN 23 H, Creatinine 1.10, Estimated Creat Clear 68, Estimated GFR 64, Est GFR ( Amer) 77, Glucose 226 H, Calcium 9.2, Magnesium 1.8, Total Bilirubin 0.9, AST 42, ALT 40, Alkaline Phosphatase 83, Troponin I 0.01, NT-Pro-B Natriuret Pep 549 H, Total Protein 7.3, Albumin 4.4, Globulin 2.9, Albumin/Globulin Ratio 1.5, HCV Ab OCTAVIO w/Rflx PCR Qn Negative, HIV Ag/Ab Combo Qual Negative 11/13/24 23:44: VBG pH 7.39, VBG pCO2 40.4, VBG pO2 45.5 H, VBG HCO3 24.0, VBG Total CO2 25.2, VBG O2 Saturation 80.3 H, VBG Base Excess -1.0, VBG Lactic Acid 2.0 11/13/24 23:55: Chlamy pneumoniae PCR Not detected, Adenovirus (PCR) Not detected, B. pertussis DNA (PCR) Not detected, Coronavirus OC43 (PCR) Not detected, Coronavirus HKU1 (PCR) Not detected, Coronavirus 229E (PCR) Not detected, SARS-CoV-2 (PCR) Not detected, Coronavirus NL63 (PCR) Not detected, Human Metapneumovir PCR Not detected, Influenza A (H1) PCR Not detected, Influ A (H1N1/09) PCR Not detected, Influenza A (H3) PCR Not detected, Influenza Type A (PCR) Not detected, Influenza Type B (PCR) Not detected, M. pneumoniae (PCR) Not detected, Parainfluenza 1 (PCR) Not detected, Parainfluenza 2 (PCR) Not detected, Parainfluenza 3 (PCR) Not detected, Parainfluenza 4 (PCR) Not detected, RSV (PCR) Not detected, Entero/Rhino (PCR) Not detected 11/14/24 00:19: Urine Color Yellow, Urine Appearance Clear, Urine pH 6.0, Ur Specific [place] 1.015, Urine Protein Negative, Urine Glucose (UA) Trace, Urine Ketones Negative, Urine Blood Negative, Urine Nitrate Negative, Urine Bilirubin Negative, Urine Urobilinogen 0.2, Ur Leukocyte Esterase Negative, Urine RBC None, Urine WBC None, Ur Squamous Epith Cells Occasional, Urine Bacteria None I & O for Last 24 hours: Intake & Output 11/11/24 11/12/24 11/13/24 11/14/24 23:59 23:59 23:59 23:59 Weight 96.162 kg Constitutional Constitutional: no acute distress *Routine HEENT Exam Head: Present normocephalic Eye: Present EOMI and PERRL ENT: Present mucous membranes moist *Routine Neck Exam Neck: Present supple; Absent lymphadenopathy *Routine Respiratory Exam Respiratory: Present decreased breath sounds (In the lower lobes bilateral) and wheezes *Routine Cardiovascular Exam Cardiovascular: Present RRR *Routine Abdominal Exam Abdominal: Present soft and normoactive bowel sounds; Absent tenderness *Routine Rectal Exam Rectal:: deferred *Routine Genitalia Exam Genitalia:: deferred *Routine Extremities Exam Extremities: Present edema (+2 nonpitting edema); Absent cyanosis or clubbing *Routine Skin Exam Skin: Present warm; Absent rash *Routine Neurological Exam Neurological: Present alert and oriented X3 Assessment and Plan *Assessment and plan (1) CHF exacerbation: Status: Acute Category: Medical Code(s): I50.9 - Heart failure, unspecified (2) Fall: Status: Acute Category: Medical Code(s): W19.XXXA - Unspecified fall, initial encounter (3) Hypertension: Status: Acute Category: Medical Code(s): I10 - Essential (primary) hypertension (4) Type 2 diabetes mellitus: Status: Acute Category: Medical Code(s): E11.9 - Type 2 diabetes mellitus without complications (5) Acute asthma flare: Status: Acute Category: Medical Code(s): J45.901 - Unspecified asthma with (acute) exacerbation (6) Declining functional status: Status: Acute Category: Medical Code(s): R53.81 - Other malaise (7) Weakness: Status: Acute Category: Medical Code(s): R53.1 - Weakness (8) Leukocytosis: Status: Acute Category: Medical Code(s): D72.829 - Elevated white blood cell count, unspecified Plan Medical Decision Making: The patient is an 83-year-old male with a history of asthma, type 2 diabetes, hypertension, and hyperlipidemia, presenting with respiratory distress, ge neralized weakness, and a fall earlier today. Initial evaluation revealed respiratory distress with accessory muscle use, wheezing, and diminished breath sounds, concerning for an asthma exacerbation or fluid overload. Lab findings include leukocytosis with neutrophilic shift, mild anemia, hyperglycemia, and elevated BNP, suggesting possible CHF exacerbation and underlying infection. Imaging ruled out acute traumatic injury, pulmonary embolism, and pneumonia. The patient was started on DuoNebs, Solu-Medrol, furosemide, and broad-spectrum antibiotics given concerns for sepsis and fluid overload. NIPPV was initiated for work of breathing with significant improvement in oxygenation and respiratory rate. He is hemodynamically stable but requires admission for further monitoring and management of respiratory distress, CHF exacerbation, and possible sepsis. Respiratory Distress with Wheezing * Likely multifactorial, including asthma exacerbation, fluid overload (CHF exacerbation), and possible infection. * Have weaned NIPPV to nasal cannula, continue assess with continuous pulse ox symmetry and respiratory eval * Administer DuoNebs (albuterol and ipratropium) every 4 hours and as needed. * Continue Solu-Medrol 40 mg IV twice daily for inflammation related to asthma exacerbation. * Monitor respiratory status closely, including oxygen saturation, respiratory rate, and work of breathing, to assess for the need for decompensation. CHF Exacerbation with Fluid Overload * BNP elevation (549), leg swelling, and diminished left heart squeeze on bedside POCUS suggest fluid overload. * Continue furosemide 20 mg IV with reassessment of fluid status and renal function (BMP daily). * Monitor strict intake and output. * Encourage low-sodium diet during admission. * Repeat echocardiogram to assess cardiac function, particularly left ventricular ejection fraction, and evaluate for further management. * Daily weight * Perform orthostatic vital signs once stable Leukocytosis * Leukocytosis (WBC 13.9) with neutrophilic shift raises concern for infection, though no clear source identified. * Broad-spectrum antibiotics initiated convert Zosyn in favor of IV ceftriaxone and p.o. azithromycin for CAP/COPD exacerbation reassess based on culture results and clinical improvement. * Monitor for clinical signs of systemic inflammatory response (e.g., fever, tachycardia, hypotension). * Investigate inflammatory markers and repeat CBC daily. * Rule out sepsis Generalized Weakness * Multifactorial, likely related to underlying infection, CHF, and deconditioning. * Ensure adequate hydration while avoiding fluid overload. * Reassess for improvement in strength after stabilization of primary issues. Fall Without Apparent Injury * CT imaging of the head, cervical spine, chest, abdomen, and pelvis ruled out acute traumatic injury or intracranial pathology. * Reassess functional mobility after addressing acute medical issues. * Initiate physical therapy once stable to support safe mobilization. Hyperglycemia (Glucose 226, A1c 8.3) * Initiate basal-bolus insulin therapy with correctional scale during admission. * Educate patient and family on tighter diabetes control upon discharge. * Was previously on p.o. steroid in the month of September Mild Anemia (Hgb 11.7) * Likely chronic anemia given previous Hgb 12.8 in August 2024. No signs of active bleeding. * Monitor hemoglobin daily to ensure stability. * Consider further outpatient evaluation if anemia persists after acute issues resolve (e.g., iron studies, B12, folate). Hypertension * Blood pressure improved with sublingual nitroglycerin and diuresis, now in the 160s systolic. * Continue monitoring and avoid overcorrection. * Will add as needed hydralazine for SBP greater than 160 or DBP greater than 110 Asthma with COPD Features * History of asthma exacerbation treated with steroids in September 2024. * Continue nebulizer treatments and steroids as above. Avoid non-selective beta-blockers. * Monitor for signs of worsening respiratory status or need for additional bronchodilators. Disposition * Admit to the hospital for continued monitoring and management of respiratory distress, fluid overload, and possible sepsis. * Monitor vitals, lab trends, and clinical status closely. * Engage family in care discussions and keep them informed of progress and plan. * Consider consult cardiology for CHF management and outpatient follow-up after discharge. * Plan for physical therapy evaluation once clinically stable to address deconditioning and fall risk. Rounded on patient after nurse practitioner. Personally examined and interviewed patient. Agree with exam findings and care plan as documented. Patient did well on morning rounds. Able to wean supplemental oxygen. Diuresing well, -1-1/2 L. Echo obtained today showing diastolic dysfunction. Has findings consistent with HFpEF. Will initiate on Jardiance for diabetes and HFpEF. Increase Lasix to 40 mg p.o. daily. Consult for cardiology to evaluate in the morning. Therapy evaluated, needs placement. Repeat CBC, CMP, magnesium ordered for the morning.
[2024-11-14] MEDS: METHYLPREDNISOLONE SOD SUCC 40MG VIAL 40 MG IV ×2 (02:50→10:49)
[2024-11-14] MEDS: humaLOG 100 UNITS/ML 10ML VIAL (SSI) SUBCUT ×4 (02:58→22:00)
[2024-11-14 03:04] LABS: POC Glucose,Bedside 200 (70-110)
[2024-11-14 03:21] LABS: Troponin I < 0.01 ng/ml (0.00-0.034)
[2024-11-14 06:10] LABS: Basophils % 0.1 % (0.1-2.0); Eosinophils % 0.2 % (0.1-12.0); Hematocrit 33.3 % (42.0-52.0); Hemoglobin 10.8 g/dL (14.1-18.0); Lymphocytes # 0.7 K/mm3 (0.7-4.5); Lymphocytes % 6.2 % (10-50); Mean Corpuscular HGB Conc 32.4 g/dL (31.8-35.4); Mean Corpuscular Hemoglobin 28.5 pg (27.0-31.2); Mean Corpuscular Volume 87.9 fl (80-94); Monocytes # 0.2 K/mm3 (0.1-1.0); Neutrophils # 9.9 K/mm3 (1.8-7.8); Platelet Count 175 K/mm3 (142-424); Red Blood Count 3.79 M/mm3 (4.60-6.20); Red Cell Distribution Width 13.6 % (11.5-17.5); White Blood Count 10.9 K/mm3 (4.8-10.8)
[2024-11-14 06:12] LABS: MANUAL DIFFERENTIAL MANUAL DIFFERENTIAL (MANUAL DIFF)
[2024-11-14 07:52] LABS: Troponin I < 0.01 ng/ml (0.00-0.034)
[2024-11-14 08:00] LABS: Lymphocytes % 14 % (10-50); Monocytes % 2 % (2-9); Neutrophils % 84 % (42-76); Total Cells Counted 100
[2024-11-14 08:01] LABS: Platelet Estimate Normal; RBC Morphology Normal
--- NOTE | 2024-11-14 08:04 | HMH.PHAINT1 ---
Pharmacy Intervention Comments: MEDICATION RECONCILIATION COMPLETED ON PATIENT USING LIST FROM PCP OFFICE. -CHELLY GUARDADO, KENDRAD
[2024-11-14] MEDS: CEFTRIAXONE 1 GM 1 GM in 0.9 % SODIUM CHLORIDE 50 ML IV (08:20)
[2024-11-14] MEDS: ENOXAPARIN 40MG/0.4ML SYRINGE 40 MG SUBCUT (08:20)
[2024-11-14] MEDS: FUROSEMIDE 20 MG/2 ML VIAL IV (08:20)
[2024-11-14] MEDS: AZITHROMYCIN 250MG TABLET 500 MG PO (08:20)
[2024-11-14 08:35] LABS: Magnesium 1.8 mg/dl (1.6-2.3); Phosphorous 3.6 mg/dl (2.5-4.5)
--- NOTE | 2024-11-14 08:45 | PC.NURSE ---
DR COFFEY AT BEDSIDE
--- NOTE | 2024-11-14 09:02 | CA_ITS ---
APPROVED REPORT EXAM: Comprehensive 2D, Doppler, and color-flow Echocardiogram Progressive Care Unit Registered Nurse: Charito Davis RDCS Ht: 5 ft 10 in Wt: 213lbs BSA: 2.14 BP: 198/108 mmHg Indications: CHF,HTN,HLP,H/O ASTHMA M-Mode Dimensions RVDd 1.85 cm (0.9-2.6) LA Diam 4.60 cm (1.9-4.0) LVDd 5.63 cm (3.5-5.7) LVDs 4.06 cm (3.5-5.7) IVSd 1.05 cm (0.6-1.1) PWd 0.89 cm (0.6-1.1) EF (Teich) 53.40% FS 27.90% EDV (Teich) 155.60 mL ESV (Teich) 72.50 mL LV Diastology E Decel Time 213 (160-240 msec) E/A Ratio 0.6 Aortic Valve SANDRA Index 1.00 cm2/m2 AoV Peak [place]. 184.0 (50-130 cm/s) AO Peak GR. 13.60 mmHg AO Mean GR. 6.70 (<5 mmHg) AO VTI 30.6 (18-25 cm) SANDRA (VTI) 2.21 (2.5-4.5 cm2) Mitral Valve MV E Max [place]. 61.0 (40-130 cm/s) MV A Velocity 96.0 (40-130 cm/s) E/A Ratio 0.64 MV PHT 62.0 ms Tricuspid Valve TR P. Velocity 254.00 cm/s RAP Estimate 10.00 mmHg RVSP 35.90 mmHg Left Ventricle The left ventricle is normal size. The left ventricular systolic function is normal. The left ventricular ejection fraction is within the normal range. There is increased LV wall thickness. There is normal LV segmental wall motion. Diastolic function is indeterminate. LVEF is 60%. Right Ventricle Right ventricle is mildly dilated. The right ventricular systolic function is normal. Atria The left atrium is mildly dilated. The right atrium size is normal. There is no Doppler evidence of interatrial shunt. Aortic Valve Aortic valve is mildly thickened. Mild aortic stenosis is present. Peak velocity 2.0 m/s. Mean AV gradient 10 mmHg. Max AV gradient 15 mmHg. SANDRA by continuity equation is 2.1 cm???. Mild aortic regurgitation. Mitral Valve The mitral valve leaflets are mildly thickened. No evidence of mitral valve stenosis. Mild mitral regurgitation. Tricuspid Valve Tricuspid valve is grossly normal in structure and function. Mild tricuspid regurgitation. RVSP is 30-35 mmHg. Pulmonic Valve The pulmonary valve is normal in structure. Trace pulmonic regurgitation. Great Vessels The aortic root is normal in size. The ascending aorta is not well-visualized. IVC is normal in size and collapses >50% with inspiration. Pericardium There is no pericardial effusion. Other Information Study Quality: Fair Conclusion Normal biventricular systolic function. Mild RV dilation. Mild LA dilation. Mild (peak velocity 2.0 m/s. Mean AV gradient 10 mmHg. Max AV gradient 15 mmHg. SANDRA by continuity equation is 2.1 cm???). Mild AI, mild MR, mild TR. RVSP 30-35 mmHg. Compared to prior study from 04/08/2021, there are no significant changes. Electronically signed by : Tova Prather MD 11/14/2024 12:40:59
--- NOTE | 2024-11-14 09:16 | PC.NURSE ---
ECHO AT BEDSIDE
[2024-11-14 09:48] LABS: 25-OH Vitamin D, Total 41.4 ng/mL (30-100)
--- NOTE | 2024-11-14 10:34 | HMH.OTEV ---
OT Inpatient Evaluation Rehab OT IP Evaluation Start: 11/14/24 08:40 Freq: ONCE Status: Active Protocol: Document 11/14/24 10:28 RMARSHALL (Rec: 11/14/24 10:[address] [facility] [id number]) Rehab OT IP Assessment Subjective History Pt oriented x 3 on arrival. Pt agreeable to engage in therapy evaluation. Pt admitted on 11/14/24 due to respiratory distress and CHF. History and physical: The patient is an 83-year-old male with a medical history significant for asthma, type 2 diabetes mellitus on metformin, hypertension, and hyperlipidemia, who presents to the emergency department with multiple complaints including respiratory distress , generalized weakness, and a fall earlier today. According to the patient and his family, he fell at home around 2:30 PM while reaching for something off the floor while holding onto a table. He denies striking his head, losing consciousness, or experiencing any chest pain. He is not on blood thinners and denies any recent fevers, cough, or trauma-related symptoms. Initially after the fall, he complained of bilateral lower abdominal pain , which has since resolved. The family notes that he has been weaker than usual today, requiring multiple-person assistance to transfer in and out of a wheelchair, whereas he was able to ambulate independently with a cane into [facility] earlier. Additionally, he has had increased leg swelling despite taking 20 mg of furosemide daily and episodes of audible wheezing with visible difficulty breathing. The patient took albuterol prior to arrival, which provided minimal improvement. He denies vision changes, numbness, tingling, or focal weakness. The family states that he has a history of recurrent urinary tract infections but has not been treated with antibiotics in months. He also recently recovered from a viral upper respiratory infection in September, during which he received steroids. On arrival, the patient was ill-appearing, tachycardic, hypertensive, tachypneic, and in obvious respiratory distress with accessory muscle use, diminished breath sounds , and wheezing. His oxygen saturation improved with positive pressure ventilation (NIPPV). Initial labs revealed leukocytosis with a neutrophilic shift (WBC 13.9), mild anemia (Hgb 11.7), hyperglycemia (glucose 226, A1c 8.3), mild prerenal azotemia (BUN 23, creatinine 1 .1), and an elevated BNP (549) . Imaging ruled out acute traumatic injury, pulmonary embolism, and pneumonia but showed evidence of mild fluid overload. Urinalysis was unremarkable for infection. Expanded respiratory panel was negative with flu A and B still pending result. The patient received DuoNebs, Solu -Medrol, sublingual nitroglycerin, furosemide, and broad-spectrum antibiotics. His work of breathing has decreased and he has been moved to 3 L nasal cannula and is now more comfortable with improved oxygenation and hemodynamic stability. The patient will be admitted for further management of respiratory distress, fluid overload, and possible Subjective Prior to being in the hospital , pt lived at home with his . Pt claims normally he is independent with all ADLs. However, he is dependent upon for completion of all IADLs. Pt does use a rolling walker for functional transfers. Pt no longer drives. Objective Patient Orientation Person,Place,Birthday Right Upper Extremity Gross ROM WFL Left Upper Extremity Gross ROM WFL Bed Mobility bed mobility-scooting,bed mobility - supine/sit Assist Level Minimal x 1 (25% assist) Transfer Training Sit/Stand Transfer Assist Level Moderate x 1 (50% assist) Chair Transfer Ability Moderate x 1 (50% assist) Chair Transfer Technique Sit to/from Ambulatory Performing Toilet Hygiene Ability Maximum Assistance Overall Commode/Toilet Transfer Ability Moderate Assistance Commode/Toilet Transfer Technique Stand Step Pivot Rehab OT IP prob,goals,plan Problems Date of Evaluation: 11/14/24 OT IP Problems Bed Mobility,Transfers,Balance ,Self care,Safety Rehab Potential Rehab Potential Good Equipment Needs Assistive Devices Rolling / Wheeled Walker Plan OT intervention Plan Bed Mobility,Transfers,Balance ,Self care,Safety,Therapeutic Exercise OT Plan Frequency Daily Duration LOS Discharge Goals Bed Mobility Ability Assistance x1 Sit to Stand Chair Transfer Ability Minimal x 1 (25% assist) Chair Transfer Ability Minimal x 1 (25% assist) Chair Transfer Technique Sit to/from Ambulatory Chair Transfer Assistive Devices Rolling Walker Lower Body Dressing Ability Minimal Assistance Upper Body Dressing Ability Contact Guard Bathing Ability Moderate Assistance Performing Toilet Hygiene Ability Minimal Assistance Overall Commode/Toilet Transfer Ability Minimal Assistance Commode/Toilet Transfer Technique Sit to/from Ambulatory Discharge Plan OT Discharge Plan Pt will continue to be seen for OT services while at [facility]. At this time, pt would benefit most from short term rehab at [facility] due to decline in functional ability and ADL independence. If pt demonstrates improvement during hospital stay, he could possibly return home with his assistance 11/05 and OT evaluation. Continued skilled therapy is important in order for patient to improve strength, safety, endurance, ADL independence, and functional transfers to reach PLOF. Eval Complexity Eval Charge Codes 46444 - Moderate Complexity PHYSICIAN CERTIFICATION: I certify the specified therapy services for Abraham Tillman are required, authorized, and reviewed every 30 days.
[2024-11-14 10:58] LABS: Hemoglobin A1C 7.8 % (4.0-6.0)
[2024-11-14] MEDS: dilTIAZem ER 240MG CAPSULE 240 MG PO (11:19)
[2024-11-14] MEDS: IRBESARTAN 75MG TABLET 75 MG PO (11:19)
[2024-11-14] MEDS: FUROSEMIDE 40MG/4ML VIAL 40 MG IV (11:19)
--- NOTE | 2024-11-14 11:40 | SW/DCPLANNER ---
Addendum entered by Stephanie Hinton 11/16/24 11:25: I have updated Erica eid/ [facility] that patient will return today SNF level of care. Addendum entered by [facility] 11/15/24 13:33: Per Erica patient has been approved SNF level of care. I have updated MD and he is waiting for repeat lab work. Addendum entered by Stephanie Hinton 11/15/24 12:37: Per Erica eid/ [facility] precert is pending at this time. Addendum entered by [facility] 11/14/24 15:32: Per Erica precert will be started today. Original Note: I spoke w/ this patient regarding plans once medically stable for discharge. PT/OT evaluated patient and recommended SNF level of care. Patient and son present in the room this AM during my conversation. Patient is agreeable to placement at time of discharge. Patient prefers [facility] and information will be faxed this AM. Per patient could be medically stable for discharge this afternoon. I will continue to follow up w/ patient, family, and [facility].
--- NOTE | 2024-11-14 12:36 | PC.NURSE ---
CALLED REPORT TO TEVIN MENDEZ
[2024-11-14 13:20] LABS: C-Reactive Protein 13.1 mg/L (0-4)
--- NOTE | 2024-11-14 13:25 | PC.NURSE ---
PT TRANSPORTED TO 2ND FLOOR ROOM 209 VIA WEHEELCHAIR
[2024-11-14] MEDS: MAGNESIUM SULFATE IN WATER 2 GM/50 ML PIGGYBACK IV (14:10)
--- NOTE | 2024-11-14 15:08 | HMH.PTEV ---
Physical Therapy Evaluation Rehab PT IP Evaluation Start: 11/14/24 01:59 Freq: ONCE Status: Active Protocol: Document 11/14/24 13:15 LEROY (Rec: 11/14/24 15:08 LEROY [id number]) Subjective/History History History Per H&P: The patient is an 83 -year-old male with a medical history significant for asthma , type 2 diabetes mellitus on metformin, hypertension, and hyperlipidemia, who presents to the emergency department with multiple complaints including respiratory distress , generalized weakness, and a fall earlier today. According to the patient and his family, he fell at home around 2:30 PM while reaching for something off the floor while holding onto a table. He denies striking his head, losing consciousness, or experiencing any chest pain. He is not on blood thinners and denies any recent fevers, cough, or trauma-related symptoms. Initially after the fall, he complained of bilateral lower abdominal pain , which has since resolved. The family notes that he has been weaker than usual today, requiring multiple-person assistance to transfer in and out of a wheelchair, whereas he was able to ambulate independently with a cane into [facility] earlier. Additionally, he has had increased leg swelling despite taking 20 mg of furosemide daily and episodes of audible wheezing with visible difficulty breathing. The patient took albuterol prior to arrival, which provided minimal improvement. He denies vision changes, numbness, tingling, or focal weakness. The family states that he has a history of recurrent urinary tract infections but has not been treated with antibiotics in months. He also recently recovered from a viral upper respiratory infection in September, during which he received steroids. On arrival, the patient was ill-appearing, tachycardic, hypertensive, tachypneic, and in obvious respiratory distress with accessory muscle use, diminished breath sounds , and wheezing. His oxygen saturation improved with positive pressure ventilation (NIPPV). Initial labs revealed leukocytosis with a neutrophilic shift (WBC 13.9), mild anemia (Hgb 11.7), hyperglycemia (glucose 226, A1c 8.3), mild prerenal azotemia (BUN 23, creatinine 1 .1), and an elevated BNP (549) . Imaging ruled out acute traumatic injury, pulmonary embolism, and pneumonia but showed evidence of mild fluid overload. Urinalysis was unremarkable for infection. Expanded respiratory panel was negative with flu A and B still pending result. The patient received DuoNebs, Solu -Medrol, sublingual nitroglycerin, furosemide, and broad-spectrum antibiotics. His work of breathing has decreased and he has been moved to 3 L nasal cannula and is now more comfortable with improved oxygenation and hemodynamic stability. The patient will be admitted for further management of respiratory distress, fluid overload, and possible. Subjective Subjective Prior to being in the hospital pt lived at home with his . Pt reports he is normally independent with all ADLs and functional mobility. Pt does use a RW for functional transfers. Pt no longer drives. New diagnosis of cancer in past 12 No months? Rehab PT IP Eval Objective Appearance Patient Behavior Appropriate,Cooperative Patient Orientation Person,Place,Birthday Difficulty following instructions none Ambulation Patient Able to Ambulate No Balance Ability to Arise Able, uses arms to help Sitting Balance Steady, safe Standing Balance Unsteady Transfers Chair Transfer Ability Minimal x 1 (25% assist) Sit to Stand Bed Transfer Ability Minimal x 1 (25% assist) Sit to Stand Chair Transfer Ability Minimal x 1 (25% assist) Rehab PT IP prob,goals,plan Problems Date of Evaluation: 11/14/24 PT IP Problems Bed Mobility,Transfers,Gait, Balance,Safety Rehab Potential Rehab Potential Good Plan PT Intervention Plan Bed Mobility,Transfers,Gait, Balance,Self care,Safety, Therapeutic Exercise Other Intervention Plan 1-2 times PT Plan Frequency Daily Duration LOS Discharge Goals Bed Transfer Ability Contact Guard/Hand Hold Sit to Stand Chair Transfer Ability Contact Guard/Hand Hold Ambulation Assistive Device Rolling Walker Ambulation Distance (feet) 10 Discharge Plan PT Discharge Plan Initial physical therapy evaluation performed. Patient presents below baseline at this time in functional mobility, transfers, and strength. PT recommending short-term rehabilitation stay upon d/c from [facility]. Pt may be safe to d/c home with 24/7 assistance as needed by family and HH PT services if pt demo 's improved mobility while at [facility]. Pt would benefit from skilled acute care PT to prevent further functional decline and maximize safety with mobility. Eval Complexity Eval Charge Codes 40718 - Moderate Complexity PHYSICIAN CERTIFICATION: I certify the specified therapy services for Abraham Tillman are required, authorized, and reviewed every 30 days.
[2024-11-14 16:17] LABS: POC Glucose,Bedside 372 (70-110)
[2024-11-14 21:05] LABS: Vitamin B12 658 pg/mL (239-931)
[2024-11-14 22:05] LABS: POC Glucose,Bedside 276 (70-110)
[2024-11-15] VITALS (7 sets, daily range): BP systolic 143–162; BP diastolic 73–88; PULSE 70–84; RESP 14–20; TEMP 36.5–37.2; O2SAT 90–98; BMI 29.7
--- NOTE | 2024-11-15 04:46 | PC.NURSE ---
Patient is alert and oriented; patient was noted to be slightly hard of hearing as well. A couple family members visited him yesterday evening. He was observed to be awake for the majority of the night; patient had not requested and also declined any sleep aids, such as melatonin. Occasional, short, resting periods (eyes closed, respirations even and unlabored on room air) were noticed. He has not had any complaints this shift and has remained overall pleasant. Auscultation of his heart and bowels were within normal findings. During auscultation of his lungs, clear but diminished lung sounds could be heard. Occasional, scattered audible wheezing was also heard of the patient. Patient denies a productive cough at this time. Mild swelling was noted in his bilateral lower extremities. Blood pressures have been slightly elevated this shift; other vital signs remained stable. Patient refused a bedtime snack this shift. ACHS glucose fingersticks performed. Insulin coverage administered as appropriately per DEC. A purewick has been utilized this shift; urine output has been emptied and documented accordingly. Urine appearance transparent and yellow in color. At this time, the patient is resting in bed. No acute changes noted thus far. Bed alarm on. Call light within reach.
[2024-11-15] MEDS: humaLOG 100 UNITS/ML 10ML VIAL (SSI) SUBCUT ×3 (05:33→21:30)
[2024-11-15 05:37] LABS: POC Glucose,Bedside 203 (70-110)
[2024-11-15 06:49] LABS: Basophils % 0.1 % (0.1-2.0); Hematocrit 33.3 % (42.0-52.0); Hemoglobin 11.1 g/dL (14.1-18.0); Lymphocytes # 0.9 K/mm3 (0.7-4.5); Lymphocytes % 4.4 % (10-50); Mean Corpuscular HGB Conc 33.3 g/dL (31.8-35.4); Mean Corpuscular Hemoglobin 28.9 pg (27.0-31.2); Mean Corpuscular Volume 86.7 fl (80-94); Monocytes % 4.7 % (1.7-9.3); Neutrophils # 18.3 K/mm3 (1.8-7.8); Neutrophils % 90.2 % (37.0-80.0); Platelet Count 189 K/mm3 (142-424); Red Blood Count 3.84 M/mm3 (4.60-6.20); Red Cell Distribution Width 13.6 % (11.5-17.5); White Blood Count 20.3 K/mm3 (4.8-10.8)
[2024-11-15 06:53] LABS: MANUAL DIFFERENTIAL MANUAL DIFFERENTIAL (MANUAL DIFF)
[2024-11-15 07:10] LABS: Alanine Aminotransferase 30 U/L (12-78); Albumin Level 3.8 g/dl (3.5-5.0); Albumin/Globulin Ratio 1.5 (1.1-1.8); Alkaline Phosphatase 83 U/L (38-126); Anion Gap 14.3 mEq/L (5-15); Aspartate Amino Transferase 26 U/L (17-59); Bilirubin,Total 0.5 mg/dl (0.2-1.3); Blood Urea Nitrogen 30 mg/dl (9-20); Calcium 8.8 mg/dl (8.4-10.2); Carbon Dioxide 28 mmol/L (22.0-30.0); Chloride 99 mmol/L (98-107); Creatinine Clearance Estimated 52 mL/min (50-200); Estimated Glomerular Filt Rate 48 ml/min (>60); GFR (African American) 58 ML/MIN (>60); Globulin 2.5 g/dL (1.3-3.2); Glucose 222 mg/dl (74-100); Potassium 3.3 mmoL/L (3.5-5.1); Sodium 138 mmol/L (136-145); Total Protein,Serum 6.3 g/dl (6.3-8.2)
[2024-11-15 07:18] LABS: Magnesium 2.3 mg/dl (1.6-2.3)
[2024-11-15 08:12] LABS: POC Glucose,Bedside 283 (70-110)
[2024-11-15 08:42] LABS: Lymphocytes % 9 % (10-50); Monocytes % 1 % (2-9); Neutrophils % 90 % (42-76); Platelet Estimate Normal; RBC Morphology Normal; Total Cells Counted 100
--- NOTE | 2024-11-15 09:14 | EXP.CARD.CON ---
History of Present Illness History of Present Illness Consult date: 11/15/24 Requesting physician: Dez Chambers Consult reason: congestive heart failure Chief complaint: SOA, HFpEF Additional Medical History:: 1. Hypertension 2. History of Alzheimer's dementia 3. Hyperlipidemia 4. diabetes mellitus type 2 5. History of asthma 6. Mild aortic stenosis, stable since 2020 7. CKD, stage III History of present illness: The patient is an 83-year-old male with a medical history significant for asthma, type 2 diabetes mellitus on metformin, hypertension, and hyperlipidemia, who presents to the emergency department with multiple complaints including respiratory distress, generalized weakness, and a fall earlier today. According to the patient and his family, he fell at home around 2:30 PM while reaching for something off the floor while holding onto a table. He denies striking his head, losing consciousness, or experiencing any chest pain. He is not on blood thinners and denies any recent fevers, cough, or trauma-related symptoms. Initially after the fall, he complained of bilateral lower abdominal pain, which has since resolved. The family notes that he has been weaker than usual today, requiring multiple-person assistance to transfer in and out of a wheelchair, whereas he was able to ambulate independently with a cane into [facility] earlier. Additionally, he has had increased leg swelling despite taking 20 mg of furosemide daily and episodes of audible wheezing with visible difficulty breathing. The patient took albuterol prior to arrival, which provided minimal improvement. He denies vision changes, numbness, tingling, or focal weakness. The family states that he has a history of recurrent urinary tract infections but has not been treated with antibiotics in months. He also recently recovered from a viral upper respiratory infection in September, during which he received steroids. On arrival, the patient was ill-appearing, tachycardic, hypertensive, tachypneic, and in obvious respiratory distress with accessory muscle use, diminished breath sounds, and wheezing. His oxygen saturation improved with positive pressure ventilation (NIPPV). Initial labs revealed leukocytosis with a neutrophilic shift (WBC 13.9), mild anemia (Hgb 11.7), hyperglycemia (glucose 226, A1c 8.3), mild prerenal azotemia (BUN 23, creatinine 1.1), and an elevated BNP (549). Imaging ruled out acute traumatic injury, pulmonary embolism, and pneumonia but showed evidence of mild fluid overload. Urinalysis was unremarkable for infection. Expanded respiratory panel was negative with flu A and B still pending result. The patient received DuoNebs, Solu-Medrol, sublingual nitroglycerin, furosemide, and broad-spectrum antibiotics. His work of breathing has decreased and he has been moved to 3 L nasal cannula and is now more comfortable with improved oxygenation and hemodynamic stability. The patient will be admitted for further management of respiratory distress, fluid overload, and possible. The above per Dr. Chambers's H&P. Events as noted above confirmed with the patient and the . Patient's breathing is back to baseline at this time with no complaints of chest pain, pressure or tightness. Discussed results of echocardiogram showing preserved ejection fraction and mild aortic stenosis which is unchanged since 2020. Also discussed possible side effect of diltiazem including lower extremity edema which the patient seems to be bothered with. BNP was mildly elevated on admission with no evidence of CHF noted on chest CTA. Troponins have returned normal this admission. [facility] Disclaimer: The information contained in this section may have been updated after the patient was seen, as this information can be updated by other users. Medical History Cataract History of recurrent UTI (urinary tract infection) Hyperlipidemia Hypertension Diabetes Surgical History History of cholecystectomy History of hip surgery Family History Other No significant family history Social History Smoking Status: Never smoker alcohol intake: never substance use type: denies use current occupational status: retired Travel in the last 8 weeks: None education level: college caffeine: Yes Have you lived/traveled outside [place] in past 30 days?: No Contact w/someone who lives/traveled outside [place] past 30 days?: No Exposure to someone with infectious disease in past 14 days?: No Do you have a fever (greater than 100.4 F or 38 C)?: No Have you tested positive for COVID-19: No Exposed to someone with COVID-19 in past 14 days?: No Do you have a sore throat?: No Do you have a cough?: No Do you have any weakness?: No Do you have any diarrhea?: No Are you experiencing any unusual bleeding?: No Do you have any muscle aches/pain?: No Do you have any abdominal pain?: No Are you experiencing loss of taste or smell?: No Review of Systems Review of Systems Review of systems:: pertinent systems reviewed and negative unless documented below *Cardiovascular Cardiovascular: Denies chest pain, Reports dyspnea and Reports dyspnea on exertion *Respiratory Respiratory: Reports dyspnea and Reports dyspnea on exertion Exam Data for Last 24 hours Vital signs and Labs for Last 24 Hours: Temp Pulse Resp BP Pulse Ox O2 Del Method O2 Flow Rate 97.8 F 74 20 162/73 H 93 L Room Air 2 11/15/24 07:39 11/15/24 07:39 11/15/24 07:39 11/15/24 07:39 11/15/24 07:39 11/15/24 07:39 11/14/24 08:05 Laboratory Results - last 24 hr 11/14/24 05:43: Hemoglobin A1c 7.8 H, C-Reactive Protein 13.1 H, Vitamin B12 658, 25-OH Vitamin D Total 41.4, TSH 1.10 11/14/24 08:16: POC Glucose 283 H 11/14/24 16:08: POC Glucose 372 H* 11/14/24 21:55: POC Glucose 276 H 11/15/24 05:28: POC Glucose 203 H 11/15/24 06:25: WBC 20.3 H* D, RBC 3.84 L, Hgb 11.1 L, Hct 33.3 L, MCV 86.7, MCH 28.9, MCHC 33.3, RDW 13.6, Plt Count 189, MPV 10.0, Neut % (Auto) 90.2 H, Lymph % (Auto) 4.4 L, [place] % (Auto) 4.7, Eos % (Auto) 0.0 L, Baso % (Auto) 0.1, Neut # (Auto) 18.3 H, Lymph # (Auto) 0.9, [place] # (Auto) 1.0, Eos # (Auto) 0.0, Baso # (Auto) 0.0, Total Counted 100, Neutrophils % (Manual) 90 H, Lymphocytes % (Manual) 9 L, Monocytes % (Manual) 1 L, Platelet Estimate Normal, RBC Morphology Normal, Sodium 138, Potassium 3.3 L D, Chloride 99, Carbon Dioxide 28, Anion Gap 14.3, BUN 30 H D, Creatinine 1.40 H D, Estimated Creat Clear 52, Estimated GFR 48 L, Est GFR ( Amer) 58 L D, Glucose 222 H, Calcium 8.8, Magnesium 2.3 D, Total Bilirubin 0.5, AST 26 D, ALT 30, Alkaline Phosphatase 83, Total Protein 6.3, Albumin 3.8 D, Globulin 2.5, Albumin/Globulin Ratio 1.5 I & O for Last 24 hours: Intake & Output 11/12/24 11/13/24 11/14/24 11/15/24 11:59 11:59 11:59 11:59 Intake Total 1430 / 1430 1170 / 1170 Output Total 2350 / 2350 1600 / 1600 Balance -920 / -920 -430 / -430 Weight 213 lb 10.047 oz 207 lb 12.8 oz Microbiology Reports for the Last 24 Hours: Microbiology 11/14/24 00:09 Blood Blood Culture - Preliminary NO GROWTH AFTER 24 HOURS 11/14/24 00:09 Blood Blood Culture - Preliminary NO GROWTH AFTER 24 HOURS Constitutional Constitutional: no acute distress *Routine Respiratory Exam Respiratory: Present CTA bilaterally; Absent rhonchi or wheezes *Routine Cardiovascular Exam Cardiovascular: Present RRR and murmur; Absent gallop or rubs *Routine Extremities Exam Extremities: Present edema *Routine Neurological Exam Neurological: Present alert Meds Home Medications and Allergies Home Medications ?Medication ?Instructions ?Recorded ?Confirmed ?Type aspirin 81 mg tablet,delayed 81 mg PO DAILY 03/28/21 11/14/24 History release multivitamin 1 each PO DAILY 03/28/21 11/14/24 History memantine 5 mg tablet 5 mg PO DAILY #90 tabs 10/13/24 11/14/24 Rx albuterol sulfate 90 mcg/actuation 2 puff inhalation Q6HP PRN 11/14/24 11/14/24 History aerosol inhaler shortness of breath or wheezing atorvastatin 10 mg tablet 10 mg PO HS 11/14/24 11/14/24 History diltiazem HCl 240 mg 240 mg PO DAILY 11/14/24 11/14/24 History capsule,extended release 24 hr furosemide 20 mg tablet 20 mg PO Q48H 11/14/24 11/14/24 History losartan 50 mg tablet 50 mg PO DAILY 11/14/24 11/14/24 History metformin 500 mg tablet 500 mg PO BID 11/14/24 11/14/24 History omeprazole 20 mg capsule,delayed 20 mg PO HS 11/14/24 11/14/24 History release potassium chloride 10 mEq 10 meq PO DAILY 11/14/24 11/14/24 History tablet,extended release(part/cryst) New Prescriptions to Start Prescriptions: Allergies Allergy/AdvReac Type Severity Reaction Status Date / Time No Known Drug Allergies (NO Allergy Unknown Verified 09/29/24 16:14 KNOWN DRUG ALLERGIES) Assessment and Plan *Assessment and plan (1) Acute hypoxic respiratory failure: Status: Acute Category: Medical Code(s): J96.01 - Acute respiratory failure with hypoxia (2) Fall: Status: Acute Qualifiers: Encounter type: initial encounter Qualified Code(s): W19.XXXA - Unspecified fall, initial encounter Category: Medical Code(s): W19.XXXA - Unspecified fall, initial encounter (3) Leukocytosis: Status: Acute Qualifiers: Leukocytosis type: unspecified Qualified Code(s): D72.829 - Elevated white blood cell count, unspecified Category: Medical Code(s): D72.829 - Elevated white blood cell count, unspecified (4) Acute on chronic heart failure with preserved ejection fraction (HFpEF): Status: Acute Category: Medical Code(s): I50.33 - Acute on chronic diastolic (congestive) heart failure (5) Declining functional status: Status: Acute Category: Medical Code(s): R53.81 - Other malaise (6) Alzheimer's dementia: Status: Chronic Qualifiers: Alzheimer's disease onset: unspecified onset Dementia severity: unspecified severity Dementia behavioral or psychological symptom: without behavioral, psychotic, or mood disturbance or anxiety Qualified Code(s): G30.9 - Alzheimer's disease, unspecified; F02.80 - Dementia in other diseases classified elsewhere, unspecified severity, without behavioral disturbance, psychotic disturbance, mood disturbance, and anxiety Category: Medical Code(s): G30.9 - Alzheimer's disease, unspecified; F02.80 - Dementia in other diseases classified elsewhere, unspecified severity, without behavioral disturbance, psychotic disturbance, mood disturbance, and anxiety (7) Hypertension: Status: Acute Qualifiers: Hypertension type: primary hypertension Qualified Code(s): I10 - Essential (primary) hypertension Category: Medical Code(s): I10 - Essential (primary) hypertension (8) Hyperlipidemia: Status: Chronic Qualifiers: Hyperlipidemia type: mixed hyperlipidemia Qualified Code(s): E78.2 - Mixed hyperlipidemia Category: Medical Code(s): E78.5 - Hyperlipidemia, unspecified (9) Type 2 diabetes mellitus: Status: Acute Qualifiers: Diabetes mellitus medical terminologist insulin use: without prison use Diabetes mellitus complication status: without complication Qualified Code(s): E11.9 - Type 2 diabetes mellitus without complications Category: Medical Code(s): E11.9 - Type 2 diabetes mellitus without complications Plan 1. Respiratory distress with wheezing and leukocytosis, multifactorial -Improved with combo therapy of Solu-Medrol, DuoNebs and NIPPV -On antibiotic therapy 2. HFpEF -Echo shows preserved ejection fraction -Mildly elevated BNP with no evidence of fluid overload on chest CTA -Increased diuresis resulting in mild DIXON -Troponins normal -Add spironolactone 25 mg daily and use Lasix as needed -Continue Jardiance 10 mg daily 3. Alzheimer's dementia with declining functional status -Fall without injury -Plan to go to [facility] for rehab therapy 4. Hypertension, not to goal -Change diltiazem to metoprolol due to lower extremity edema -Increase irbesartan (or home dose of losartan) for better blood pressure control 5. Hyperlipidemia -on statin therapy 6. Diabetes mellitus type 2 -CKD, stage III with creatinine 1.4 and GFR 48 -Hemoglobin A1c 7.8 7. Hypokalemia at 3.3 -Replacement ordered 8. Mild aortic stenosis, stable since 2020 Change diltiazem to metoprolol due to lower extremity edema Increase irbesartan (or losartan) for better blood pressure control As spironolactone 25 mg daily to help with retaining potassium. Change Lasix to as needed Stable from a cardiac standpoint for discharge. Follow-up in our office in 2 to 4 weeks. Medication recommendations: Metoprolol 50 mg daily Irbesartan 75 mg twice daily (or losartan 50 mg twice daily) Furosemide 20 mg daily as needed Spironolactone 25 mg daily Jardiance 10 mg daily Atorvastatin 10 mg daily Aspirin 81 mg daily
[2024-11-15] MEDS: POTASSIUM CHLORIDE 20MEQ TAB 40 MEQ PO ×2 (09:50→12:01)
[2024-11-15] MEDS: ACETAMINOPHEN 325MG TAB 650 MG PO ×2 (09:51→22:32)
[2024-11-15] MEDS: EMPAGLIFLOZIN 10MG TABLET 10 MG PO (09:51)
[2024-11-15] MEDS: CEFTRIAXONE 1 GM 1 GM in 0.9 % SODIUM CHLORIDE 50 ML IV (09:51)
[2024-11-15] MEDS: METOPROLOL SUCCINATE XL 50MG TABLET 50 MG PO (09:51)
[2024-11-15] MEDS: AZITHROMYCIN 250MG TABLET 500 MG PO (09:51)
[2024-11-15] MEDS: FUROSEMIDE 40 MG TABLET PO (09:51)
[2024-11-15] MEDS: ENOXAPARIN 40MG/0.4ML SYRINGE 40 MG SUBCUT (09:52)
[2024-11-15 11:54] LABS: POC Glucose,Bedside 300 (70-110)
[2024-11-15 13:23] LABS: Basophils % 0.1 % (0.1-2.0); Hematocrit 36.8 % (42.0-52.0); Hemoglobin 12.1 g/dL (14.1-18.0); Lymphocytes # 0.9 K/mm3 (0.7-4.5); Lymphocytes % 4.1 % (10-50); Mean Corpuscular HGB Conc 32.9 g/dL (31.8-35.4); Mean Corpuscular Hemoglobin 28.7 pg (27.0-31.2); Mean Corpuscular Volume 87.4 fl (80-94); Mean Platelet Volume 9.9 fl (7.4-10.4); Monocytes # 1.1 K/mm3 (0.1-1.0); Monocytes % 5.1 % (1.7-9.3); Neutrophils # 19.4 K/mm3 (1.8-7.8); Neutrophils % 90.1 % (37.0-80.0); Platelet Count 216 K/mm3 (142-424); Red Blood Count 4.21 M/mm3 (4.60-6.20); Red Cell Distribution Width 13.6 % (11.5-17.5); White Blood Count 21.6 K/mm3 (4.8-10.8)
[2024-11-15] MEDS: SODIUM CHLORIDE 3% 15ML NEB 3 ML IH (14:55)
[2024-11-15 17:09] LABS: POC Glucose,Bedside 134 (70-110)
[2024-11-15 17:42] LABS: Free T4 (Free Thyroxine) 1.31 ng/dl (0.78-2.19)
[2024-11-15 17:51] LABS: Procalcitonin 0.074 ng/mL (0.0-2.0)
[2024-11-15] MEDS: IRBESARTAN 75MG TABLET 75 MG PO (21:15)
[2024-11-15 21:27] LABS: POC Glucose,Bedside 201 (70-110)
--- NOTE | 2024-11-15 22:22 | EXP.PN ---
Subjective *Date: 11/16/24 *Time: 08:12 Interval history: Patient feels well today, weaned to 2 L nasal cannula. No longer having respiratory distress, wheezing. Seems euvolemic. However, WBC bumped to 21 today. No signs of infection, fevers. Likely steroid effect, however continue to monitor. Anticipate discharge to [facility] tomorrow if improving. Pulmonology consulted for apparent history of reactive airway disease. Exam Data for Last 24 hours Vital signs and Labs for Last 24 Hours: Temp Pulse Resp BP Pulse Ox O2 Del Method O2 Flow Rate 97.8 F 75 14 157/88 H 92 L Room Air 2 11/15/24 20:00 11/15/24 20:00 11/15/24 20:00 11/15/24 20:00 11/15/24 20:00 11/15/24 21:00 11/14/24 08:05 Laboratory Results - last 24 hr 11/14/24 08:16: POC Glucose 283 H 11/15/24 05:28: POC Glucose 203 H 11/15/24 06:25: WBC 20.3 H* D, RBC 3.84 L, Hgb 11.1 L, Hct 33.3 L, MCV 86.7, MCH 28.9, MCHC 33.3, RDW 13.6, Plt Count 189, MPV 10.0, Neut % (Auto) 90.2 H, Lymph % (Auto) 4.4 L, [place] % (Auto) 4.7, Eos % (Auto) 0.0 L, Baso % (Auto) 0.1, Neut # (Auto) 18.3 H, Lymph # (Auto) 0.9, [place] # (Auto) 1.0, Eos # (Auto) 0.0, Baso # (Auto) 0.0, Total Counted 100, Neutrophils % (Manual) 90 H, Lymphocytes % (Manual) 9 L, Monocytes % (Manual) 1 L, Platelet Estimate Normal, RBC Morphology Normal, Sodium 138, Potassium 3.3 L D, Chloride 99, Carbon Dioxide 28, Anion Gap 14.3, BUN 30 H D, Creatinine 1.40 H D, Estimated Creat Clear 52, Estimated GFR 48 L, Est GFR ( Amer) 58 L D, Glucose 222 H, Calcium 8.8, Magnesium 2.3 D, Total Bilirubin 0.5, AST 26 D, ALT 30, Alkaline Phosphatase 83, Total Protein 6.3, Albumin 3.8 D, Globulin 2.5, Albumin/Globulin Ratio 1.5, Procalcitonin 0.074, Free T4 1.31 11/15/24 11:45: POC Glucose 300 H 11/15/24 13:15: WBC 21.6 H*, RBC 4.21 L, Hgb 12.1 L, Hct 36.8 L, MCV 87.4, MCH 28.7, MCHC 32.9, RDW 13.6, Plt Count 216, MPV 9.9, Neut % (Auto) 90.1 H, Lymph % (Auto) 4.1 L, [place] % (Auto) 5.1, Eos % (Auto) 0.0 L, Baso % (Auto) 0.1, Neut # (Auto) 19.4 H, Lymph # (Auto) 0.9, [place] # (Auto) 1.1 H, Eos # (Auto) 0.0, Baso # (Auto) 0.0 11/15/24 16:54: POC Glucose 134 H 11/15/24 21:18: POC Glucose 201 H I & O for Last 24 hours: Intake & Output 11/12/24 11/13/24 11/14/24 11/15/24 23:59 23:59 23:59 23:59 Intake Total 2060 / 2060 900 / 900 Output Total 3850 / 3950 350 / 350 Balance -1790 / -1890 550 / 550 Weight 96.162 kg 96.9 kg 94.256 kg Microbiology Reports for the Last 24 Hours: Microbiology 11/14/24 00:09 Blood Blood Culture - Preliminary NO GROWTH AFTER 24 HOURS 11/14/24 00:09 Blood Blood Culture - Preliminary NO GROWTH AFTER 24 HOURS Assessment and Plan *Assessment and plan (1) Acute on chronic heart failure with preserved ejection fraction (HFpEF): Status: Acute Category: Medical Code(s): I50.33 - Acute on chronic diastolic (congestive) heart failure Plan Abraham Tillman is a 83-year-old male who was admitted for acute hypoxic respiratory failure, respiratory distress with wheezing, and suspected heart failure exacerbation. #Acute hypoxic respiratory failure #Reactive airway disease #Leukocytosis ? Initially presented with wheezing, accessory muscle use which improved with breathing treatments, steroids, CPAP. ? Currently back to room air with appropriate saturations. ? CTA chest did not reveal acute findings. ? Patient seems to have an isolated neutropenic leukocytosis with no concomitant symptoms, fevers, or signs of sepsis. Blood cultures negative at 24 hours. No other source of infection at this time. - Leukocytosis at this time may represent demargination from steroids. Will continue to monitor. Anticipate discharge in the morning as this improves. ? Continue Rocephin, azithromycin for now. ? Continue nasal cannula 2 L, wean as tolerated. ? Pulmonology consulted, pending further recommendations for suspected reactive airway disease. #Suspected heart failure exacerbation ? BNP slightly elevated on admission 549. ? ECHO shows normal biventricular function. ? Cardiology consulted, weaned Lasix to as needed basis. Currently euvolemic. ? Cardiology switched diltiazem to metoprolol succinate 50 mg, started spironolactone 25 mg. #Type 2 diabetes ? LDSSI, ACHS glucose checks. ? Hemoglobin A1c 7.8% #Hypertension ? Resume home medications. #History of Alzheimer's disease, declining functional status ? Plan to discharge to [facility] once medically stable.
[2024-11-16] VITALS (7 sets, daily range): BP systolic 140–154; BP diastolic 89–93; PULSE 65–71; RESP 16–20; TEMP 36.6–36.8; O2SAT 90–96; BMI 29.3
--- NOTE | 2024-11-16 03:43 | PC.NURSE ---
Patient is alert and oriented; no intermittent periods of confusion noted during this shift. Patient was visited by multiple family members yesterday evening. He was observed to have eyes closed, respirations even and unlabored on room air, and no apparent distress for the majority of the night. Patient's has remained at the bedside this shift. Auscultation of his heart and bowels were within normal findings. During auscultation of his lungs, expiratory wheezing could be heard. Scattered, audible wheezing was also noted during wakeful periods. Patient is able to ambulate with assistance, using a walker. A purewick continues to be utilized; urine output has been emptied and documented accordingly. Urine appearance remains transparent and yellow. Patient has not had any complaints this shift. Scheduled medications were administered per DEC. ACHS glucose fingersticks performed. Patient's blood pressure has remained elevated this shift; other vital signs remain stable. At this time, the patient is resting supine in bed. Bed alarm on. Call light within reach.
[2024-11-16] MEDS: ACETAMINOPHEN 325MG TAB 650 MG PO (05:28)
--- NOTE | 2024-11-16 06:03 | PC.NURSE ---
Addendum entered by Waleska Barragan RN 11/16/24 06:38: Patient started to have increasing shortness of breath, became red in the face, and his heart rate increased into the 120s on the datascope. Respiratory arrived to the patient's room with a breathing treatment, but an EKG was also performed per acute changes. Patient's symptoms started to subside after the completion of the breathing treatment. Bernardino MONTANEZ was paged to inform him about this occurrence and EKG to be officially read. Patient is now tolerating 2 L of oxygen via nasal cannula at this time. Original Note: During a linen change this morning, the patient was noticed to become increasingly wheezy, respirations were labored, and he stated that he was feeling short of breath. Patient's oxygen saturation was checked; reading was found to be dropping into the upper 80s (87% to 88%). Patient was directed to slow down his respirations by this RN and at bedside. Nasal cannula with 1 L of oxygen flow was applied for the time being. Patient's oxygen saturations started to increase into the low 90s (92% to 93%). Bernardino MONTANEZ was notified of this occurrence [id number]. Patient has PRN Duonebs existing in the MAR. OK'd the administration of Duoneb treatments. Respiratory will be paged to administer a breathing treatment.
[2024-11-16 06:07] LABS: POC Glucose,Bedside 132 (70-110)
--- NOTE | 2024-11-16 06:29 | ECG_ITS ---
APPROVED REPORT Exam: Resting ECG HR:74 bpm ECG Measurements Heart Rate 74 AXES WV 156 P 69 QRSd 101 QRS -15 QT 409 T -5 QTc 437 Conclusion SINUS RHYTHM WITH OCCASIONAL SUPRAVENTRICULAR PREMATURE COMPLEXES VOLTAGE CRITERIA FOR LVH [MEETS CRITERIA IN ONE OF: R(aVL), S(V1), R(V5), R(V5/V6)+S(V1)] ABNORMAL ECG UNCONFIRMED REPORT Electronically signed by : Faustino Lee MD 11/17/2024 10:54:41
[2024-11-16] MEDS: IPRATROPIUM/ALBUTEROL 3 ML NEB IH (06:35)
[2024-11-16 07:41] LABS: Basophils % 0.2 % (0.1-2.0); Eosinophils # 0.3 K/mm3 (0.0-0.4); Eosinophils % 2.5 % (0.1-12.0); Hematocrit 36.3 % (42.0-52.0); Hemoglobin 11.8 g/dL (14.1-18.0); Lymphocytes # 1.6 K/mm3 (0.7-4.5); Mean Corpuscular HGB Conc 32.5 g/dL (31.8-35.4); Mean Corpuscular Hemoglobin 28.9 pg (27.0-31.2); Mean Platelet Volume 10.2 fl (7.4-10.4); Monocytes # 1.1 K/mm3 (0.1-1.0); Monocytes % 9.4 % (1.7-9.3); Neutrophils # 8.5 K/mm3 (1.8-7.8); Neutrophils % 73.3 % (37.0-80.0); Platelet Count 192 K/mm3 (142-424); Red Blood Count 4.08 M/mm3 (4.60-6.20); White Blood Count 11.5 K/mm3 (4.8-10.8)
[2024-11-16 07:56] LABS: Alanine Aminotransferase 32 U/L (12-78); Albumin/Globulin Ratio 1.5 (1.1-1.8); Alkaline Phosphatase 89 U/L (38-126); Anion Gap 15.1 mEq/L (5-15); Aspartate Amino Transferase 31 U/L (17-59); Bilirubin,Total 0.5 mg/dl (0.2-1.3); Blood Urea Nitrogen 36 mg/dl (9-20); Calcium 8.9 mg/dl (8.4-10.2); Carbon Dioxide 26 mmol/L (22.0-30.0); Chloride 105 mmol/L (98-107); Creatinine Clearance Estimated 56 mL/min (50-200); Estimated Glomerular Filt Rate 53 ml/min (>60); GFR (African American) 64 ML/MIN (>60); Globulin 2.6 g/dL (1.3-3.2); Glucose 133 mg/dl (74-100); Magnesium 2.4 mg/dl (1.6-2.3); Potassium 4.1 mmoL/L (3.5-5.1); Sodium 142 mmol/L (136-145); Total Protein,Serum 6.6 g/dl (6.3-8.2)
[2024-11-16 08:05] LABS: Procalcitonin 0.068 ng/mL (0.0-2.0)
[2024-11-16] MEDS: CEFTRIAXONE 1 GM 1 GM in 0.9 % SODIUM CHLORIDE 50 ML IV (09:02)
[2024-11-16] MEDS: MEMANTINE 10MG TABLET 5 MG PO (09:02)
[2024-11-16] MEDS: ASPIRIN EC 81MG TABLET 81 MG PO (09:02)
[2024-11-16] MEDS: EMPAGLIFLOZIN 10MG TABLET 10 MG PO (09:03)
[2024-11-16] MEDS: METOPROLOL SUCCINATE XL 50MG TABLET 50 MG PO (09:03)
[2024-11-16] MEDS: IRBESARTAN 75MG TABLET 75 MG PO (09:03)
[2024-11-16] MEDS: ENOXAPARIN 40MG/0.4ML SYRINGE 40 MG SUBCUT (09:03)
[2024-11-16] MEDS: AZITHROMYCIN 250MG TABLET 500 MG PO (09:03)
[2024-11-16] MEDS: SPIRONOLACTONE 25MG TABLET 25 MG PO (09:03)
--- NOTE | 2024-11-16 09:43 | EXP.PULM.CON ---
History of Present Illness History of present illness: Mr. Lawson is a 83-year-old male never smoker, carries a prior diagnosis of asthma, using albuterol inhaler on as-needed basis not using any oxygen supplementation prior to this hospital admission type 2 diabetes mellitus hypertension dyslipidemia presented to the ER with worsening respiratory send generalized weakness and fall admitted in the hospital on 11/14/2023 and pulmonary was called for further evaluation and management. [facility] Disclaimer: The information contained in this section may have been updated after the patient was seen, as this information can be updated by other users. Medical History Cataract History of recurrent UTI (urinary tract infection) Hyperlipidemia Hypertension Diabetes Surgical History History of cholecystectomy History of hip surgery Family History Other No significant family history Social History Smoking Status: Never smoker alcohol intake: never substance use type: denies use current occupational status: retired Travel in the last 8 weeks: None education level: college caffeine: Yes Review of Systems Constitutional Constitutional: Reports anorexia, Reports body ache(s) and Reports fatigue Eyes Eyes: Denies eye discharge, Denies dry eyes, Denies irritation and Denies itchy eyes ENT Ears, Nose, Mouth, and Throat: Denies epistaxis, Denies facial pain, Denies lip swelling and Denies throat swelling *Cardiovascular Cardiovascular: Reports dyspnea, Reports dyspnea on exertion and Reports leg edema *Respiratory Respiratory: Denies change in phlegm color, Reports chest congestion, Reports cough, Reports dyspnea, Reports dyspnea on exertion, Denies excessive phlegm production, Denies hemoptysis, Denies pain on inspiration, Denies pain with cough and Reports wheezing *Gastrointestinal Gastrointestinal: Denies abdominal pain, Denies belching and Denies cramping *Musculoskeletal Musculoskeletal: Reports back pain, Reports myalgias and Reports other (No small joint swelling or Pain) Psychiatric Psychiatric: Denies homicidal ideation and Denies suicidal ideation Endocrine Endocrine: Reports fatigue and Denies heat intolerance Hematologic/Lymphatic Hematologic/Lymphatic: Denies easy bleeding and Denies lymphadenopathy Allergic/Immunologic Allergic/Immunologic: Denies itchy eyes, Denies lip swelling, Denies throat swelling and Reports wheezing Pulmonology Exam Inpatient Vital signs and Labs for Last 24 Hours: Temp Pulse Resp BP Pulse Ox O2 Del Method O2 Flow Rate 97.9 F 65 16 146/93 H 96 Nasal Cannula 2 11/16/24 08:00 11/16/24 08:00 11/16/24 08:00 11/16/24 08:00 11/16/24 08:00 11/16/24 08:56 11/16/24 08:56 Laboratory Results - last 24 hr 11/15/24 06:25: Procalcitonin 0.074, Free T4 1.31 11/15/24 11:45: POC Glucose 300 H 11/15/24 13:15: WBC 21.6 H*, RBC 4.21 L, Hgb 12.1 L, Hct 36.8 L, MCV 87.4, MCH 28.7, MCHC 32.9, RDW 13.6, Plt Count 216, MPV 9.9, Neut % (Auto) 90.1 H, Lymph % (Auto) 4.1 L, [place] % (Auto) 5.1, Eos % (Auto) 0.0 L, Baso % (Auto) 0.1, Neut # (Auto) 19.4 H, Lymph # (Auto) 0.9, [place] # (Auto) 1.1 H, Eos # (Auto) 0.0, Baso # (Auto) 0.0 11/15/24 16:54: POC Glucose 134 H 11/15/24 21:18: POC Glucose 201 H 11/16/24 05:58: POC Glucose 132 H 11/16/24 06:48: WBC 11.5 H D, RBC 4.08 L, Hgb 11.8 L, Hct 36.3 L, MCV 89.0, MCH 28.9, MCHC 32.5, RDW 14.0, Plt Count 192, MPV 10.2, Neut % (Auto) 73.3, Lymph % (Auto) 14.0, [place] % (Auto) 9.4 H, Eos % (Auto) 2.5, Baso % (Auto) 0.2, Neut # (Auto) 8.5 H, Lymph # (Auto) 1.6, [place] # (Auto) 1.1 H, Eos # (Auto) 0.3, Baso # (Auto) 0.0, Sodium 142, Potassium 4.1 D, Chloride 105, Carbon Dioxide 26, Anion Gap 15.1 H, BUN 36 H, Creatinine 1.30 H, Estimated Creat Clear 56, Estimated GFR 53 L, Est GFR ( Amer) 64, Glucose 133 H, Calcium 8.9, Magnesium 2.4 H, Total Bilirubin 0.5, AST 31, ALT 32, Alkaline Phosphatase 89, Total Protein 6.6, Albumin 4.0, Globulin 2.6, Albumin/Globulin Ratio 1.5, Procalcitonin 0.068 I & O for Labs for Last 24 Hours: Intake & Output 11/13/24 11/14/24 11/15/24 11/16/24 23:59 23:59 23:59 23:59 Intake Total 2059 / 2059 1077 / 1077 100 / 100 Output Total 3850 / 3950 350 / 500 400 / 400 Balance -1790 / -1890 727 / 577 -300 / -300 Weight 212 lb 213 lb 10.047 oz 207 lb 12.8 oz 205 lb 1.6 oz Microbiology Reports for the Last 24 Hours: Microbiology 11/14/24 00:09 Blood Blood Culture - Preliminary NO GROWTH AFTER 48 HOURS 11/14/24 00:09 Blood Blood Culture - Preliminary NO GROWTH AFTER 48 HOURS Constitutional: Present mild distress Head: Present normocephalic and atraumatic ENT: Present normal exam, normal oropharynx and mucous membranes moist Neck: Present normal inspection and full ROM Respiratory: Present able to speak in complete sentences; Absent respiratory distress, rhonchi, wheezes, crackles or diminished air movement Cardiac: Present S1/S2, Tachycardia and radial pulses present GI: Present soft and distention; Absent tenderness or guarding Skin: Present intact; Absent cyanosis or jaundice Neuro: Present alert, awake and oriented x 3 Extremities: Present normal inspection; Absent clubbing or cyanosis Psychiatric: Present normal affect and cooperative Meds Home Medications and Allergies Home Medications ?Medication ?Instructions ?Recorded ?Confirmed ?Type aspirin 81 mg tablet,delayed 81 mg PO DAILY 03/28/21 11/14/24 History release multivitamin 1 each PO DAILY 03/28/21 11/14/24 History memantine 5 mg tablet 5 mg PO DAILY #90 tabs 10/13/24 11/14/24 Rx atorvastatin 10 mg tablet 10 mg PO HS 11/14/24 11/14/24 History losartan 50 mg tablet 50 mg PO DAILY 11/14/24 11/14/24 History metformin 500 mg tablet 500 mg PO BID 11/14/24 11/14/24 History omeprazole 20 mg capsule,delayed 20 mg PO HS 11/14/24 11/14/24 History release potassium chloride 10 mEq 10 meq PO DAILY 11/14/24 11/14/24 History tablet,extended release(part/cryst) empagliflozin 10 mg tablet 10 mg PO DAILY 30 days #30 tabs 11/16/24 Rx (Jardiance) fluticasone 100 mcg-salmeterol 50 1 inh inhalation BIDRT 30 days #60 11/16/24 Rx mcg/dose blistr powdr for ea inhalation (Advair Diskus) furosemide 20 mg tablet 20 mg PO DAILY 30 days #0 tabs 11/16/24 11/14/24 Rx ipratropium 0.5 mg-albuterol 3 mg 3 ml inhalation Q4HP PRN Shortness 11/16/24 Rx (2.5 mg base)/3 mL nebulization Of Breath Or Wheezing 30 days #90 soln mL levofloxacin 750 mg tablet 750 mg PO DAILY 3 days #3 tabs 11/16/24 Rx metoprolol succinate 50 mg 50 mg PO DAILY 30 days #30 tabs 11/16/24 Rx tablet,extended release 24 hr (Toprol XL) spironolactone 25 mg tablet 25 mg PO DAILY 30 days #30 tabs 11/16/24 Rx New Prescriptions to Start Prescriptions: ipratropium-albuterol Levy Vann empagliflozin [Jardiance] Levy Vann fluticasone propion-salmeterol [Advair Diskus] Levy Vann levofloxacin Levy Vann metoprolol succinate [Toprol XL] Levy Vann spironolactone Levy Vann Allergies Allergy/AdvReac Type Severity Reaction Status Date / Time No Known Drug Allergies (NO Allergy Unknown Verified 09/29/24 16:14 KNOWN DRUG ALLERGIES) Results Laboratory Findings 11/16/24 06:48 11/16/24 06:48 PT/INR, D-dimer PT 10.6 seconds (9.2-12.1) 11/13/24 23:38 INR 0.96 (0.9-1.1) 11/13/24 23:38 Abnormal lab findings: Abnormal Labs 11/13/24 11/13/24 11/14/24 23:38 23:44 02:53 WBC 13.9 H RBC 4.04 L Hgb 11.7 L Hct 35.9 L Neut % (Auto) 84.6 H Lymph % (Auto) 7.2 L [place] % (Auto) Eos % (Auto) Neut # (Auto) 11.7 H [place] # (Auto) Neutrophils % (Manual) Lymphocytes % (Manual) Monocytes % (Manual) VBG pO2 45.5 H VBG O2 Saturation 80.3 H Potassium Anion Gap 15.3 H BUN 23 H Creatinine Estimated GFR Est GFR ( Amer) Glucose 226 H POC Glucose 200 H Hemoglobin A1c Magnesium C-Reactive Protein NT-Pro-B Natriuret Pep 549 H 11/14/24 11/14/24 11/14/24 05:43 08:16 16:08 WBC 10.9 H RBC 3.79 L Hgb 10.8 L Hct 33.3 L Neut % (Auto) 91.0 H Lymph % (Auto) 6.2 L [place] % (Auto) Eos % (Auto) Neut # (Auto) 9.9 H [place] # (Auto) Neutrophils % (Manual) 84 H Lymphocytes % (Manual) Monocytes % (Manual) VBG pO2 VBG O2 Saturation Potassium Anion Gap BUN Creatinine Estimated GFR Est GFR ( Amer) Glucose POC Glucose 283 H 372 H* Hemoglobin A1c 7.8 H Magnesium C-Reactive Protein 13.1 H NT-Pro-B Natriuret Pep 11/14/24 11/15/24 11/15/24 21:55 05:28 06:25 WBC 20.3 H* D RBC 3.84 L Hgb 11.1 L Hct 33.3 L Neut % (Auto) 90.2 H Lymph % (Auto) 4.4 L [place] % (Auto) Eos % (Auto) 0.0 L Neut # (Auto) 18.3 H [place] # (Auto) Neutrophils % (Manual) 90 H Lymphocytes % (Manual) 9 L Monocytes % (Manual) 1 L VBG pO2 VBG O2 Saturation Potassium 3.3 L D Anion Gap BUN 30 H D Creatinine 1.40 H D Estimated GFR 48 L Est GFR ( Amer) 58 L D Glucose 222 H POC Glucose 276 H 203 H Hemoglobin A1c Magnesium C-Reactive Protein NT-Pro-B Natriuret Pep 11/15/24 11/15/24 11/15/24 11:45 13:15 16:54 WBC 21.6 H* RBC 4.21 L Hgb 12.1 L Hct 36.8 L Neut % (Auto) 90.1 H Lymph % (Auto) 4.1 L [place] % (Auto) Eos % (Auto) 0.0 L Neut # (Auto) 19.4 H [place] # (Auto) 1.1 H Neutrophils % (Manual) Lymphocytes % (Manual) Monocytes % (Manual) VBG pO2 VBG O2 Saturation Potassium Anion Gap BUN Creatinine Estimated GFR Est GFR ( Amer) Glucose POC Glucose 300 H 134 H Hemoglobin A1c Magnesium C-Reactive Protein NT-Pro-B Natriuret Pep 11/15/24 11/16/24 11/16/24 21:18 05:58 06:48 WBC 11.5 H D RBC 4.08 L Hgb 11.8 L Hct 36.3 L Neut % (Auto) Lymph % (Auto) [place] % (Auto) 9.4 H Eos % (Auto) Neut # (Auto) 8.5 H [place] # (Auto) 1.1 H Neutrophils % (Manual) Lymphocytes % (Manual) Monocytes % (Manual) VBG pO2 VBG O2 Saturation Potassium Anion Gap 15.1 H BUN 36 H Creatinine 1.30 H Estimated GFR 53 L Est GFR ( Amer) Glucose 133 H POC Glucose 201 H 132 H Hemoglobin A1c Magnesium 2.4 H C-Reactive Protein NT-Pro-B Natriuret Pep Assessment and Plan *Assessment and plan (1) Acute hypoxic respiratory failure: Status: Acute Category: Medical Code(s): J96.01 - Acute respiratory failure with hypoxia (2) Acute asthma flare: Status: Acute Category: Medical Code(s): J45.901 - Unspecified asthma with (acute) exacerbation Plan Mr. Lawson is a 83-year-old male never smoker, carries a prior diagnosis of asthma, using albuterol inhaler on as-needed basis not using any oxygen supplementation prior to this hospital admission type 2 diabetes mellitus hypertension dyslipidemia presented to the ER with worsening respiratory send generalized weakness and fall admitted in the hospital on 11/14/2023 and pulmonary was called for further evaluation and management. Patient since admission is being managed for CHF and asthma COPD exacerbation. Neutrophilic predominant leukocytosis upon admission. Blood gas venous from admission did not show any evidence of hypoxic/hypercarbic respiratory failure. CTA PE protocol, No evidence of pulmonary embolism. No dense consolidative/airspace changes noted. Currently receiving ceftriaxone and azithromycin along with DuoNebs every 4 as needed. Not receiving any steroids. Improvement since admission. Patient overnight noted to have nocturnal desaturation associated with significant wheezing. Auscultation clear with no significant wheezing. On 2 L saturating 93% Plan: Continue oxygen supplementation as needed to maintain O2 saturation goal of 90% and above Initiate Advair 100 twice daily Albuterol 4 times daily as needed Follow in pulmonary clinic 1 to 2 weeks post discharge.
--- NOTE | 2024-11-16 11:23 | EXP.DC.SUM ---
General Admission date:: 11/14/24 HPI HPI HPI: The patient is an 83-year-old male with a medical history significant for asthma, type 2 diabetes mellitus on metformin, hypertension, and hyperlipidemia, who presents to the emergency department with multiple complaints including respiratory distress, generalized weakness, and a fall earlier today. According to the patient and his family, he fell at home around 2:30 PM while reaching for something off the floor while holding onto a table. He denies striking his head, losing consciousness, or experiencing any chest pain. He is not on blood thinners and denies any recent fevers, cough, or trauma-related symptoms. Initially after the fall, he complained of bilateral lower abdominal pain, which has since resolved. The family notes that he has been weaker than usual today, requiring multiple-person assistance to transfer in and out of a wheelchair, whereas he was able to ambulate independently with a cane into [facility] earlier. Additionally, he has had increased leg swelling despite taking 20 mg of furosemide daily and episodes of audible wheezing with visible difficulty breathing. The patient took albuterol prior to arrival, which provided minimal improvement. He denies vision changes, numbness, tingling, or focal weakness. The family states that he has a history of recurrent urinary tract infections but has not been treated with antibiotics in months. He also recently recovered from a viral upper respiratory infection in September, during which he received steroids. On arrival, the patient was ill-appearing, tachycardic, hypertensive, tachypneic, and in obvious respiratory distress with accessory muscle use, diminished breath sounds, and wheezing. His oxygen saturation improved with positive pressure ventilation (NIPPV). Initial labs revealed leukocytosis with a neutrophilic shift (WBC 13.9), mild anemia (Hgb 11.7), hyperglycemia (glucose 226, A1c 8.3), mild prerenal azotemia (BUN 23, creatinine 1.1), and an elevated BNP (549). Imaging ruled out acute traumatic injury, pulmonary embolism, and pneumonia but showed evidence of mild fluid overload. Urinalysis was unremarkable for infection. Expanded respiratory panel was negative with flu A and B still pending result. The patient received DuoNebs, Solu-Medrol, sublingual nitroglycerin, furosemide, and broad-spectrum antibiotics. His work of breathing has decreased and he has been moved to 3 L nasal cannula and is now more comfortable with improved oxygenation and hemodynamic stability. The patient will be admitted for further management of respiratory distress, fluid overload, and possible Hospital Course Hospital Course Hospital Course: Abraham Tillman is a 83-year-old male who was admitted for acute hypoxic respiratory failure, respiratory distress with wheezing, and suspected heart failure exacerbation. #Acute hypoxic respiratory failure #Reactive airway disease #Suspected history of asthma ? Initially presented with wheezing, accessory muscle use which improved with breathing treatments, steroids, CPAP. ? Currently back to room air with appropriate saturations. ? CTA chest did not reveal acute findings. ? Patient did have isolated neutropenic leukocytosis up to 21 with no concomitant symptoms, fevers, or signs of sepsis. Blood cultures negative at 48 hours. No other source of infection at this time. Improved to WBC 11 the next day, likely from demargination from steroids. ? Pulmonology consulted, started Advair daily. ? Discharged with Advair twice daily, levofloxacin for 3 more days, DuoNebs as needed every 4 hours. ? Continue nasal cannula 2 L, wean as tolerated. Will follow-up with pulmonology within 2 weeks. ? Discharged back to [facility]. #Suspected heart failure exacerbation ? BNP slightly elevated on admission 549. ? ECHO shows normal biventricular function. ? Cardiology consulted, weaned Lasix to as needed basis. Currently euvolemic. ? Cardiology switched diltiazem to metoprolol succinate 50 mg, started spironolactone 25 mg, Jardiance 10 mg. - Will follow-up with cardiology within 2 weeks. #Type 2 diabetes ? LDSSI, ACHS glucose checks here. ? Hemoglobin A1c 7.8% ? Started Jardiance 10 mg as above. Continue metformin 500 mg twice daily. #Hypertension ? Resume home medications. #History of Alzheimer's disease, declining functional status ? Discharged back to [facility]. ? Continue memantine 5 mg daily Exam Data for Last 24 hours Vital signs and Labs for Last 24 Hours: Temp Pulse Resp BP Pulse Ox O2 Del Method O2 Flow Rate 97.9 F 65 16 146/93 H 96 Nasal Cannula 2 11/16/24 08:00 11/16/24 08:00 11/16/24 08:00 11/16/24 08:00 11/16/24 08:00 11/16/24 08:56 11/16/24 08:56 Laboratory Results - last 24 hr 11/15/24 06:25: Procalcitonin 0.074, Free T4 1.31 11/15/24 11:45: POC Glucose 300 H 11/15/24 13:15: WBC 21.6 H*, RBC 4.21 L, Hgb 12.1 L, Hct 36.8 L, MCV 87.4, MCH 28.7, MCHC 32.9, RDW 13.6, Plt Count 216, MPV 9.9, Neut % (Auto) 90.1 H, Lymph % (Auto) 4.1 L, Candler % (Auto) 5.1, Eos % (Auto) 0.0 L, Baso % (Auto) 0.1, Neut # (Auto) 19.4 H, Lymph # (Auto) 0.9, Candler # (Auto) 1.1 H, Eos # (Auto) 0.0, Baso # (Auto) 0.0 11/15/24 16:54: POC Glucose 134 H 11/15/24 21:18: POC Glucose 201 H 11/16/24 05:58: POC Glucose 132 H 11/16/24 06:48: WBC 11.5 H D, RBC 4.08 L, Hgb 11.8 L, Hct 36.3 L, MCV 89.0, MCH 28.9, MCHC 32.5, RDW 14.0, Plt Count 192, MPV 10.2, Neut % (Auto) 73.3, Lymph % (Auto) 14.0, Candler % (Auto) 9.4 H, Eos % (Auto) 2.5, Baso % (Auto) 0.2, Neut # (Auto) 8.5 H, Lymph # (Auto) 1.6, Candler # (Auto) 1.1 H, Eos # (Auto) 0.3, Baso # (Auto) 0.0, Sodium 142, Potassium 4.1 D, Chloride 105, Carbon Dioxide 26, Anion Gap 15.1 H, BUN 36 H, Creatinine 1.30 H, Estimated Creat Clear 56, Estimated GFR 53 L, Est GFR ( Amer) 64, Glucose 133 H, Calcium 8.9, Magnesium 2.4 H, Total Bilirubin 0.5, AST 31, ALT 32, Alkaline Phosphatase 89, Total Protein 6.6, Albumin 4.0, Globulin 2.6, Albumin/Globulin Ratio 1.5, Procalcitonin 0.068 I & O for Last 24 hours: Intake & Output 11/13/24 11/14/24 11/15/24 11/16/24 23:59 23:59 23:59 23:59 Intake Total 0 / 2060 1077 / 1077 100 / 100 Output Total 3850 / 3950 350 / 500 400 / 400 Balance -1790 / -1890 727 / 577 -300 / -300 Weight 96.162 kg 96.9 kg 94.256 kg 93.032 kg Microbiology Reports for the Last 24 Hours: Microbiology 11/14/24 00:09 Blood Blood Culture - Preliminary NO GROWTH AFTER 48 HOURS 11/14/24 00:09 Blood Blood Culture - Preliminary NO GROWTH AFTER 48 HOURS Constitutional Constitutional: no acute distress *Routine HEENT Exam Head: Present normocephalic Eye: Present EOMI and PERRL ENT: Present mucous membranes moist *Routine Neck Exam Neck: Present supple; Absent lymphadenopathy *Routine Respiratory Exam Respiratory: Present CTA bilaterally *Routine Cardiovascular Exam Cardiovascular: Present RRR *Routine Abdominal Exam Abdominal: Present soft and normoactive bowel sounds; Absent tenderness *Routine Extremities Exam Extremities: Absent cyanosis, clubbing or edema Comments: Trace leg edema. *Routine Skin Exam Skin: Present warm; Absent rash *Routine Neurological Exam Neurological: Present alert and oriented X3 Results Data Completed and Pending Labs on day of discharge: Labs from last 24 hours 11/16/24 11/16/24 11/15/24 06:48 05:58 21:18 WBC 11.5 H D RBC 4.08 L Hgb 11.8 L Hct 36.3 L MCV 89.0 MCH 28.9 MCHC 32.5 RDW 14.0 Plt Count 192 MPV 10.2 Neut % (Auto) 73.3 Lymph % (Auto) 14.0 Candler % (Auto) 9.4 H Eos % (Auto) 2.5 Baso % (Auto) 0.2 Neut # (Auto) 8.5 H Lymph # (Auto) 1.6 Candler # (Auto) 1.1 H Eos # (Auto) 0.3 Baso # (Auto) 0.0 Sodium 142 Potassium 4.1 D Chloride 105 Carbon Dioxide 26 Anion Gap 15.1 H BUN 36 H Creatinine 1.30 H Estimated Creat Clear 56 Estimated GFR 53 L Est GFR ( Amer) 64 Glucose 133 H POC Glucose 132 H 201 H Calcium 8.9 Magnesium 2.4 H Total Bilirubin 0.5 AST 31 ALT 32 Alkaline Phosphatase 89 Total Protein 6.6 Albumin 4.0 Globulin 2.6 Albumin/Globulin Ratio 1.5 Procalcitonin 0.068 Free T4 11/15/24 11/15/24 11/15/24 16:54 13:15 11:45 WBC 21.6 H* RBC 4.21 L Hgb 12.1 L Hct 36.8 L MCV 87.4 MCH 28.7 MCHC 32.9 RDW 13.6 Plt Count 216 MPV 9.9 Neut % (Auto) 90.1 H Lymph % (Auto) 4.1 L Candler % (Auto) 5.1 Eos % (Auto) 0.0 L Baso % (Auto) 0.1 Neut # (Auto) 19.4 H Lymph # (Auto) 0.9 Candler # (Auto) 1.1 H Eos # (Auto) 0.0 Baso # (Auto) 0.0 Sodium Potassium Chloride Carbon Dioxide Anion Gap BUN Creatinine Estimated Creat Clear Estimated GFR Est GFR ( Amer) Glucose POC Glucose 134 H 300 H Calcium Magnesium Total Bilirubin AST ALT Alkaline Phosphatase Total Protein Albumin Globulin Albumin/Globulin Ratio Procalcitonin Free T4 11/15/24 06:25 WBC RBC Hgb Hct MCV MCH MCHC RDW Plt Count MPV Neut % (Auto) Lymph % (Auto) Candler % (Auto) Eos % (Auto) Baso % (Auto) Neut # (Auto) Lymph # (Auto) Candler # (Auto) Eos # (Auto) Baso # (Auto) Sodium Potassium Chloride Carbon Dioxide Anion Gap BUN Creatinine Estimated Creat Clear Estimated GFR Est GFR ( Amer) Glucose POC Glucose Calcium Magnesium Total Bilirubin AST ALT Alkaline Phosphatase Total Protein Albumin Globulin Albumin/Globulin Ratio Procalcitonin 0.074 Free T4 1.31 Preliminary micro results at discharge 11/14/24 00:09 Blood Culture - Preliminary Blood NO GROWTH AFTER 48 HOURS 11/14/24 00:09 Blood Culture - Preliminary Blood NO GROWTH AFTER 48 HOURS DS: Diagnosis Discharge Diagnosis (1) Acute on chronic heart failure with preserved ejection fraction (HFpEF): Status: Acute Code(s): I50.33 - Acute on chronic diastolic (congestive) heart failure Meds Home Medications and Allergies Home Medications ?Medication ?Instructions ?Recorded ?Confirmed ?Type aspirin 81 mg tablet,delayed 81 mg PO DAILY 03/28/21 11/14/24 History release multivitamin 1 each PO DAILY 03/28/21 11/14/24 History memantine 5 mg tablet 5 mg PO DAILY #90 tabs 10/13/24 11/14/24 Rx atorvastatin 10 mg tablet 10 mg PO HS 11/14/24 11/14/24 History losartan 50 mg tablet 50 mg PO DAILY 11/14/24 11/14/24 History metformin 500 mg tablet 500 mg PO BID 11/14/24 11/14/24 History omeprazole 20 mg capsule,delayed 20 mg PO HS 11/14/24 11/14/24 History release potassium chloride 10 mEq 10 meq PO DAILY 11/14/24 11/14/24 History tablet,extended release(part/cryst) empagliflozin 10 mg tablet 10 mg PO DAILY 30 days #30 tabs 11/16/24 Rx (Jardiance) fluticasone 100 mcg-salmeterol 50 1 inh inhalation BIDRT 30 days #60 11/16/24 Rx mcg/dose blistr powdr for ea inhalation (Advair Diskus) furosemide 20 mg tablet 20 mg PO DAILY 30 days #0 tabs 11/16/24 11/14/24 Rx ipratropium 0.5 mg-albuterol 3 mg 3 ml inhalation Q4HP PRN Shortness 11/16/24 Rx (2.5 mg base)/3 mL nebulization Of Breath Or Wheezing 30 days #90 soln mL levofloxacin 750 mg tablet 750 mg PO DAILY 3 days #3 tabs 11/16/24 Rx metoprolol succinate 50 mg 50 mg PO DAILY 30 days #30 tabs 11/16/24 Rx tablet,extended release 24 hr (Toprol XL) spironolactone 25 mg tablet 25 mg PO DAILY 30 days #30 tabs 11/16/24 Rx New Prescriptions to Start Prescriptions: empagliflozin [Jardiance] Levy Vann fluticasone propion-salmeterol [Advair Diskus] Levy Vann ipratropium-albuterol Levy Vann levofloxacin Edwar,Levy metoprolol succinate [Toprol XL] Edwar,Levy spironolactone Levy Vann Allergies Allergy/AdvReac Type Severity Reaction Status Date / Time No Known Drug Allergies (NO Allergy Unknown Verified 09/29/24 16:14 KNOWN DRUG ALLERGIES) Discharge Plan Disposition Patient Disposition: Xfer SNF Condition: Fair Discharge Order Discharge Orders: Discharge Order (Routine); Ordered 11/16/24 Ordered By: Levy Vann Follow up Plan Follow up with: Nayeli Alvarez MD [Physician] - 11/25/24 Alvin Diaz PA [Physician Media Marketing Specialist] - Enter time for follow up Prescriptions/Medication Reconciliation: New ipratropium-albuterol 0.5 mg-3 mg(2.5 mg base)/3 mL Solution For Nebulization 3 ml inhalation Q4HP PRN (Reason: Shortness Of Breath Or Wheezing) 30 Days Qty: 90 0RF metoprolol succinate [Toprol XL] 50 mg Tablet Extended Release 24 Hr 50 mg PO DAILY 30 Days Qty: 30 0RF spironolactone 25 mg Tablet 25 mg PO DAILY 30 Days Qty: 30 0RF fluticasone propion-salmeterol [Advair Diskus] 100-50 mcg/dose Blister With Device 1 inh inhalation BIDRT 30 Days Qty: 60 0RF Jardiance 10 mg Tablet 10 mg PO DAILY 30 Days Qty: 30 0RF levofloxacin 750 mg tablet 750 mg PO DAILY 3 Days Qty: 3 0RF Continued memantine 5 mg tablet 5 mg PO DAILY Qty: 90 1RF multivitamin 1 EACH tablet 1 each PO DAILY aspirin 81 MG tablet,delayed release (DR/EC) 81 mg PO DAILY losartan 50 mg tablet 50 mg PO DAILY metformin 500 mg tablet 500 mg PO BID atorvastatin 10 mg tablet 10 mg PO HS omeprazole 20 mg capsule,delayed release(DR/EC) 20 mg PO HS potassium chloride 10 mEq tablet,ER particles/crystals 10 meq PO DAILY Changed furosemide 20 mg tablet 20 mg PO DAILY 30 Days Qty: 0 0RF Discontinued diltiazem HCl 240 mg capsule,extended release 24hr 240 mg PO DAILY albuterol sulfate 90 mcg/actuation HFA aerosol inhaler 2 puff inhalation Q6HP PRN (Reason: shortness of breath or wheezing) Problem Reconciliation Problems Reviewed?: Yes Patient Discharge Instructions Patient Instructions: DI for Heart Failure, How to Prevent Falls, DI for Respiratory Failure Print Language: Khmer Providers Primary Care Provider: Higinio Limon Admit Provider: Dez Chambers Attending Provider: Dez Chambers
[2024-11-16] MEDS: humaLOG 100 UNITS/ML 10ML VIAL (SSI) SUBCUT (12:30)
[2024-11-16 12:32] LABS: POC Glucose,Bedside 224 (70-110)
--- NOTE | 2024-11-16 13:58 | PC.NURSE ---
Report called to Reta at [facility].
== END 2024-11-16 14:20 ==
LOC: ER 11-14 01:36 → ICU 11-14 01:39 → 2ND 11-14 12:13
PROVIDERS: Nurse Practitioner Family; Student in an Organized Health Care Education/Training Program; Admitting Provider Internal Medicine Adolescent Medicine; Emergency Provider Emergency Medicine; PCP Internal Medicine; Visit Provider Internal Medicine Adolescent Medicine
DX: J96.01 Acute respiratory failure with hypoxia (principal); J45.901 Unspecified asthma with (acute) exacerbation; I50.33 Acute on chronic diastolic (congestive) heart failure; I13.0 Hypertensive heart and chronic kidney disease with heart failure and stage 1 through stage 4 chronic kidney disease, or unspecified chronic kidney disease; N18.30 Chronic kidney disease, stage 3 unspecified; E11.22 Type 2 diabetes mellitus with diabetic chronic kidney disease; E78.5 Hyperlipidemia, unspecified; I35.0 Nonrheumatic aortic (valve) stenosis; G30.9 Alzheimer's disease, unspecified; D64.9 Anemia, unspecified; E11.65 Type 2 diabetes mellitus with hyperglycemia; E87.6 Hypokalemia; D72.829 Elevated white blood cell count, unspecified; F02.80 Dementia in other diseases classified elsewhere, unspecified severity, without behavioral disturbance, psychotic disturbance, mood disturbance, and anxiety; W18.30XA Fall on same level, unspecified, initial encounter; Z79.82 Long term (current) use of aspirin; Z79.01 Long term (current) use of anticoagulants; Z79.51 Long term (current) use of inhaled steroids; Z79.899 Other long term (current) drug therapy; Z79.84 Long term (current) use of oral hypoglycemic drugs; Z90.49 Acquired absence of other specified parts of digestive tract
CPT/HCPCS: 36415; 51702; 70450; 71275; 72125; 74177; 80053; 81001; 82306; 82607; 82803; 82962; 83036; 83735; 83880; 84100; 84145; 84439; 84443; 84484; 85007; 85025; 85610; 86140; 86803; 87040; 87389; 87633; 93005; 93306; 94640; 97116; 97162; 97166; 97530; 99285; G0378; J0696; J1650; J1940; J2543; J2919; J3370; J3475; J7120; J7620; Q9967

== ENCOUNTER 2024-12-01 13:52 | Outpatient (CLI) | payer MEDICARE, SELFPAY ==
[2024-12-01 13:37] LABS: Basophils % 0.4 % (0.1-2.0); Eosinophils # 0.4 K/mm3 (0.0-0.4); Eosinophils % 4.9 % (0.1-12.0); Hematocrit 38.4 % (42.0-52.0); Hemoglobin 12.2 g/dL (14.1-18.0); Lymphocytes # 1.3 K/mm3 (0.7-4.5); Mean Corpuscular HGB Conc 31.8 g/dL (31.8-35.4); Mean Corpuscular Volume 91.4 fl (80-94); Monocytes # 0.6 K/mm3 (0.1-1.0); Monocytes % 7.8 % (1.7-9.3); Neutrophils # 5.8 K/mm3 (1.8-7.8); Neutrophils % 70.5 % (37.0-80.0); Platelet Count 251 K/mm3 (142-424); Red Cell Distribution Width 14.3 % (11.5-17.5); White Blood Count 8.2 K/mm3 (4.8-10.8)
[2024-12-01 14:15] LABS: Chloride 106 mmol/L (98-107)
[2024-12-01 14:16] LABS: Potassium 4.8 mmoL/L (3.5-5.1); Sodium 142 mmol/L (136-145)
[2024-12-01 14:19] LABS: Anion Gap 14.8 mEq/L (5-15); Blood Urea Nitrogen 21 mg/dl (9-20); Calcium 9.3 mg/dl (8.4-10.2); Carbon Dioxide 26 mmol/L (22.0-30.0); Estimated Glomerular Filt Rate 52 ml/min (>60); GFR (African American) 63 ML/MIN (>60); Glucose 137 mg/dl (74-100); Iron 88 ug/dL (49-181)
[2024-12-01 14:29] LABS: Total Iron Binding Capacity 309 ug/dL (261-462)
== END 2024-12-01 23:59 | disposition home or self-care (01) ==
LOC: LAB.DROPOF 13:52
PROVIDERS: PCP Internal Medicine; Visit Provider Internal Medicine
DX: I50.30 Unspecified diastolic (congestive) heart failure (principal); D64.9 Anemia, unspecified
CPT/HCPCS: 80048; 83540; 83550; 85025

== ENCOUNTER 2025-06-22 12:15 | Outpatient (CLI) | payer MEDICARE, SELFPAY ==
[2025-06-22 15:35] LABS: Hematocrit 35.8 % (42.0-52.0); Hemoglobin 11.5 g/dL (14.1-18.0); Immature Granulocytes % 0.2 %; Mean Corpuscular HGB Conc 32.1 g/dL (31.8-35.4); Mean Corpuscular Hemoglobin 30.6 pg (27.0-31.2); Mean Corpuscular Volume 95.2 fl (80-94); Nucleated Red Blood Cells % 0 %; Platelet Count 236 K/mm3 (142-424); Red Blood Count 3.76 M/mm3 (4.60-6.20); Red Cell Distribution Width-SD 45.2 fL; White Blood Count 8.4 K/mm3 (4.8-10.8)
[2025-06-22 20:12] LABS: Alanine Aminotransferase 19 U/L (12-78); Albumin Level 4.6 g/dl (3.5-5.0); Albumin/Globulin Ratio 1.8 (1.1-1.8); Alkaline Phosphatase 111 U/L (38-126); Anion Gap 19.2 mEq/L (5-15); Aspartate Amino Transferase 19 U/L (17-59); Bilirubin,Total 0.9 mg/dl (0.2-1.3); Blood Urea Nitrogen 35 mg/dl (9-20); Calcium 9.3 mg/dl (8.4-10.2); Carbon Dioxide 21 mmol/L (22.0-30.0); Chloride 104 mmol/L (98-107); Cholesterol 103 mg/dl (140-200); Creatinine,Serum 2.20 mg/dl (0.66-1.25); Estimated Glomerular Filt Rate 29 ml/min (>60); GFR (African American) 35 ML/MIN (>60); Globulin 2.6 g/dL (1.3-3.2); Glucose 111 mg/dl (74-100); HDL Cholesterol 31 mg/dl (40-60); Potassium 5.2 mmoL/L (3.5-5.1); Sodium 139 mmol/L (136-145); Total Protein,Serum 7.2 g/dl (6.3-8.2); Triglycerides 167 mg/dl (30-150)
[2025-06-22 21:21] LABS: Hemoglobin A1C 6.9 % (4.0-6.0)
--- OUTSIDE RECORDS SUMMARY | 2025-06-23 11:07 | XMS_ITS | Clinical Summary ---
[facility] Address [address] [place] [address] Care Team Providers Care Boilermaking Supervisor Name Role Phone Higinio Limon MD Primary Care Provider [phone] Social History Tobacco Use Types Packs/Day Years Used Date Smoking Tobacco: Never Assessed Abuse Screen Answer Date Recorded Unsafe at Home or Work/School Not on file Feels Threatened by Someone? Not on file 06/2023 Does Anyone Keep You from Co ntacting Others or Doint Things Outside the Home? Not on file 07/27/2023 Physical Sign of Abuse Present Not on file 1 Housing Stability Answer Date Recorded Current Living Arrangements Not on file 06/2023 Potentially Unsafe Housing Conditions Not on carlos e 07/27/2023 Family and Community Support Answer Norbert e Recorded Help with Day-to-Day Activities Not on file 07/27/2023 Lonely or Isolated Not on file 07/27/2023 Employment Answer Date Recorded Do you want help finding or keeping work or a sommer b? Not on file 07/27/2023 Disabilities Answer Date Recorded Concentrating, Remembering, or Making Decisions Difficulty Not on file 07/27/2023 Doing Errands Independently Difficulty Not on fi le 07/27/2023 Education Answer Date Recorded Help with school or training? Not on file Preferred Language Not on file 07/27/2023 Sex and Gender Information Value Date Recorded Sex Assigned at Not on file Legal Sex Male 12:19 PM EDT Gender Identity Not on file Sexual Orientation Not on file Plan of Treatment Health Maintenance Due Date Last Done Comments ANNUAL PHYSICAL 1940 TDAP/TD VACCINES (1 - Tdap) 1958 Pneumococcal Vaccine 50+ (1 of 1 - PCV) 1989 ZOSTER VACCINE (1 of 2) 1989 RSV Vaccine - Adults (1 - 1-dose 75+ series) COVID-19 Vaccine (2023- season) 2025 INFLUENZA VACCINE 07/19/2025 Insurance RAFI - INMATE Care Teams Boilermaking Supervisor Relationship Specialty Start Date End Date Higinio Limon MD [address] [facility] [address] [place] [id number] PCP - General Internal Medicine 08/25/16
== END 2025-06-22 23:59 ==
LOC: LAB.DROPOF 06-23 11:03
PROVIDERS: PCP Internal Medicine; Visit Provider Internal Medicine
DX: E11.9 Type 2 diabetes mellitus without complications (principal); I11.0 Hypertensive heart disease with heart failure; I50.30 Unspecified diastolic (congestive) heart failure; E78.5 Hyperlipidemia, unspecified
CPT/HCPCS: 80053; 80061; 82043; 82570; 83036; 85025

== ENCOUNTER 2025-09-21 10:00 | Outpatient (CLI) | payer MEDICARE, SELFPAY ==
[2025-09-21 14:04] LABS: Hemoglobin A1C 6.6 % (4.0-6.0)
[2025-09-21 14:22] LABS: Anion Gap 14.4 mEq/L (5-15); Blood Urea Nitrogen 28 mg/dl (9-20); Calcium 9.8 mg/dl (8.4-10.2); Carbon Dioxide 25 mmol/L (22.0-30.0); Chloride 105 mmol/L (98-107); Creatinine,Serum 1.90 mg/dl (0.66-1.25); Estimated Glomerular Filt Rate 34 ml/min (>60); GFR (African American) 41 ML/MIN (>60); Glucose 125 mg/dl (74-100); Potassium 5.4 mmoL/L (3.5-5.1); Sodium 139 mmol/L (136-145)
--- OUTSIDE RECORDS SUMMARY | 2025-09-24 10:03 | XMS_ITS | Clinical Summary ---
[facility] Address [address] [place] [address] Care Team Providers Care Ammunition Assembly Ii Laborer Name Role Phone Higinio Limon MD Primary Care Provider [phone] Social History Tobacco Use Types Packs/Day Years [...] - Adults (1 - 1-dose 75+ series) INFLUENZA VACCINE 05/19/2025 COVID-19 Vaccine (2023- season) 2025 Insurance RAFI - INMATE Care Teams Ammunition Assembly Ii Laborer Relationship Specialty Start Date End Date Higinio Limon MD [address] [facility] [address] [place] [id number] PCP - General Internal Medicine 08/25/16
== END 2025-09-21 23:59 | disposition home or self-care (01) ==
LOC: LAB.DROPOF 09-24 10:01
PROVIDERS: PCP Internal Medicine; Visit Provider Internal Medicine
DX: E87.5 Hyperkalemia (principal); I12.9 Hypertensive chronic kidney disease with stage 1 through stage 4 chronic kidney disease, or unspecified chronic kidney disease; E11.22 Type 2 diabetes mellitus with diabetic chronic kidney disease; N18.9 Chronic kidney disease, unspecified
CPT/HCPCS: 80048; 83036